=== PATIENT | female | born 1965 | race Caucasian/White ===

== ENCOUNTER → 2022-04-23 11:55 | Outpatient (CLI) | payer MEDICARE, SELFPAY ==
--- NOTE | 2022-04-23 | DI.CT.S_ITS ---
PROCEDURE: CT CHEST WO CON INDICATIONS: Shortness of breath; Other abnormalities of breath TECHNIQUE: Noncontrast 5 mm thick sections acquired from the pulmonary apices to the posterior costophrenic angles. 1 mm lung window, 5 mm thick coronal and sagittal and 7 mm axial MIP reformats were then acquired. For radiation dose reduction, the following was used: automated exposure control, adjustment of mA and/or kV according to patient size. COMPARISON: [facility], CT, THORAX WITH CONTRAST, 02/05/2010, 11:52. [facility], CR, CHEST 2 VIEW, 10/13/2013, 16:24. FINDINGS: Image quality: Excellent. Lungs and pleura: There is a 1.1 cm lobulated nodular density in the left lower lobe (series 3, image 195). Just lateral to the nodule, there is a 0.7 cm irregular nodule in the left lower lobe (series 3, image 97). A 0.4 cm nodule is seen in the left lower lobe along the major fissure (series 3, image 127). A 0.2 cm nodule is seen in the left upper lobe laterally (series 3 image 102). Other nodules are new since the last exam. Mild centrilobular emphysema. There is left hemidiaphragm elevation and left basilar atelectasis. No acute air space opacities. No pleural effusions or pneumothorax. Central and peripheral airways are patent and normal in caliber. Mediastinum: Heart size is normal. No pericardial effusion. No mediastinal adenopathy by size criteria. Thoracic aorta and central pulmonary arteries are normal in size. Esophagus is normal in caliber. Small hiatal hernia. Bones and chest wall: No suspicious bony lesions. Mild chronic anterior wedge deformity of T12. Degenerative changes noted in thoracic and upper lumbar spine. No vertebral body compression fractures. No axillary or supraclavicular adenopathy by size criteria. Thyroid gland is normal . Abdomen: There is a 2.2 cm right adrenal nodule demonstrating CT density -2.98 HU, most likely a lipid laden adrenal adenoma. Gallbladder is surgically absent. IMPRESSION: 1. There is a 1.1 cm lobulated subpleural nodule in the left lower lobe. A PET-CT is recommended for follow-up evaluation. Alternatively, a short-term follow-up CT may be obtained in 3 months. 2. A few smaller subcentimeter nodules are seen in the left lung. The nodules can be followed on follow-up imaging at the same time. 3. A 2 cm right adrenal adenoma. Fleischner Society criteria for SOLID lung nodule followup. Nodule size (mm)Low-risk patientHigh-risk patient?4No follow-up neededFollow-up at 12 mo; if no change, no further follow-up>4-7Axumrz-bp CT at 12 mo; if no change, no further follow-up needed.Initial follow-up CT at 6-12 mo, then 18-24 mo if no change. >6-8Initial follow-up CT at 6-12 mo, then 18-24 mo if no change. Initial follow-up CT at 3-6 mo, then 9-12 mo and 24 mo if no change. >8Follow-up CT at 3, 9, 24 mo. Or PET and/or biopsy.Same as for low-risk pts. Dictated by: Jose Jacques M.D. on 04/23/2022 at 12:50 Approved by: Jose Jacques M.D. on 04/23/2022 at 13:02
== END ==
PROVIDERS: Family Provider Otolaryngology; Referring Provider Family Medicine
DX: R06.02 Shortness of breath (principal); R06.89 Other abnormalities of breathing; R91.8 Other nonspecific abnormal finding of lung field; D35.01 Benign neoplasm of right adrenal gland
CPT/HCPCS: 71250

== ENCOUNTER → 2022-04-24 11:25 | Outpatient (CLI) | payer MEDICARE, SELFPAY ==
[2022-04-24 13:26] LABS: COVID19 -Nasal RAPID Negative (Negative)
== END ==
PROVIDERS: Family Provider Otolaryngology; PCP Family Medicine; Referring Provider Internal Medicine; Visit Provider Internal Medicine
DX: Z20.822 Contact with and (suspected) exposure to COVID-19 (principal)
CPT/HCPCS: 87635; C9803

== ENCOUNTER 2022-04-24 16:38 | Inpatient (IN) | payer OTHER, SELFPAY ==
[2022-04-24] VITALS (38 sets, daily range): BP systolic 85–182; BP diastolic 50–102; PULSE 75–96; RESP 7–27; TEMP 36.9; O2SAT 94–100; BMI 35.2
--- NOTE | 2022-04-24 17:03 | DI.CT.S_ITS ---
PROCEDURE: CT SOFT TISSUE NECK W CON INDICATIONS: stridor for several months. worsening, hx of cervical fusio TECHNIQUE: After the administration of intravenous contrast, 3.0 mm axial sections acquired from the sella to the aortic arch. Additional oblique axial 3.0 mm sections acquired through the pharynx. 3 mm thick coronal and sagittal reformats were generated. For radiation dose reduction, the following was used: automated exposure control. COMPARISON: None. FINDINGS: Image quality: Excellent. Lymph nodes: No enlarged lymph nodes seen throughout the neck. Vessels: Visualized vasculature appears patent. Neck spaces: The oropharynx, nasopharynx, and pharynx demonstrate no mucosal lesions. There is edema of the larynx with narrowing of the airway through the larynx measuring 1.1 cm in length. Extramucosal spaces appear unremarkable. Glands: The parotid and submandibular glands appear normal. Thyroid gland is normal. Miscellaneous: Visualized brain and orbits appear normal. Lung apices appear clear. Superficial soft tissues appear normal. Bones: Postoperative changes of ACDF spanning from C4 through C6. IMPRESSION: 1. Laryngeal edema with closure of the airway. 2. Postoperative changes of ACDF spanning from C4 through C6. Findings were discussed with Dr. Tobin Dictated by: Reza Carrero M.D. on 04/24/2022 at 19:04 Approved by: Reza Carrero M.D. on 04/24/2022 at 19:11
--- NOTE | 2022-04-24 17:05 | ED.SOB ---
HPI - SOB/Dyspnea General Chief Complaint: Shortness of Breath/Dyspnea Stated Complaint: sob Time Seen by Provider: 04/24/22 17:02 Source: patient Mode of arrival: Ambulatory Limitations: no limitations History of Present Illness HPI Narrative: This is a 56-year-old with history heroin use, anterior cervical fusion in 2016 and 2018. Patient states she is been having stridor or high-pitched wheezing with inhalation for the past several months. It has been slowly worsening. She has had a CT chest yesterday, she is. PFT testing today but was told to come to the ER by the respiratory therapist. Patient denies fevers or chills. No cough cold or congestion until about 3 weeks ago. She had some mild congestion and has had some persistent cough. She denies any chest pain or shortness of breath. She feels like it does feel tight or that the area has trouble moving air through her upper airway. She does not have any issues with swallowing except it is little bit painful and she is described sore throat. Patient has not had hemoptysis or productive sputum. No nausea or vomiting. No other GI or urinary symptoms. No swelling in extremities. She does use tobacco daily, denies alcohol, she uses heroin and sometimes smokes it. She use most recently this morning. Related Data Home Medications Medication Instructions Recorded Confirmed gabapentin 100 mg capsule 300 mg ##0 08/24/16 hydromorphone 4 mg tablet ##0 08/24/16 (Dilaudid) methadone 10 mg tablet 20 mg PO BID ##0 08/24/16 Previous Rx's Medication Instructions Recorded hydromorphone 4 mg tablet 4 mg PO QIDP PRN #10 tabs 08/24/16 (Dilaudid) cephalexin 500 mg capsule (Keflex) 500 mg PO QID #10 caps 08/27/16 hydrocodone 5 mg-acetaminophen 325 1 tab PO Q6HP PRN #6 tabs 08/27/16 mg tablet ([place]) hydrocodone 7.5 mg-acetaminophen 1 tab PO Q6HP PRN #14 tabs 10/06/16 325 mg tablet ([place]) sulfamethoxazole 800 1 tab PO BID #14 tabs 10/06/16 mg-trimethoprim 160 mg tablet Allergies Allergy/AdvReac Type Severity Reaction Status Date / Time No Known Drug Allergies Allergy Verified 04/24/22 16:51 Review of Systems Review of Systems ROS Unobtainable: All systems reviewed & are unremarkable except as noted in HPI and below Patient History Social History household members: spouse Smoking Status: Current every day smoker Smoking Status: Current every day smoker alcohol intake frequency: 0-2 drinks per day Substance Use Type: heroin Exam Narrative Exam Narrative: GEN: well nourished, well appearing female, alert and oriented x 3, patient appears to be in mild distress. HEENT: Atraumatic, pupils are equal round reactive to light, extraocular movements are intact, nares are clear, TMs are clear with no fluid, there is no conjunctival pallor. Throat is clear without any exudates, erythema, tonsillar enlargement or uvular deviation, HEART: Regular rate and rhythm without murmur, clicks, rubs. LUNGS:Lungs clear to auscultation, no wheezes, rales, crackles, chest moves symmetrically, no tachypnea accessory muscle use. Positive for stridor. Patient is slightly hoarse. ABD:bowel sounds normal, soft, non-tender, no guarding, rebound, rigidity, no masses noted, no hepatosplenomegaly :No CVA tenderness MSCL: Non-tender, no muscle atrophy, muscles strength 5/5 upper and lower extremities, full range of motion, normal gait NEURO:CN 2-12 intact, sensation normal Initial Vital Signs Initial Vital Signs: Vital Signs Temperature 98.4 F 04/24/22 16:43 Pulse Rate 96 H 04/24/22 16:43 Respiratory Rate 18 04/24/22 16:43 Blood Pressure 142/86 H 04/24/22 16:43 Pulse Oximetry 96 04/24/22 16:43 Oxygen Delivery Method 04/24/22 16:43 Course Orders Ordered: Chlorhexidine Gluconate (Chlorhexidine Gluconate 15 Ml Cup) 15 ml PO Q6HR [facility] Last Admin: 04/25/22 17:22 Dose: 15 ml Documented By: Admin: 04/25/22 11:42 Dose: 15 ml Documented By: Admin: 04/25/22 05:27 Dose: 15 ml Documented By: Admin: 04/25/22 00:15 Dose: 15 ml Documented By: KELTON Dexamethasone (Dexamethasone 4 Mg/Ml Vial) 4 mg IV Q6H [facility] Last Admin: 04/25/22 18:39 Dose: 4 mg Documented By: Admin: 04/25/22 13:06 Dose: 4 mg Documented By: Admin: 04/25/22 07:20 Dose: 4 mg Documented By: Admin: 04/25/22 01:13 Dose: 4 mg Documented By: KELTON Heparin Sodium (Porcine) (Heparin 5,000 Unit/Ml Vial) 5,000 unit SUBCUT BID AV Last Admin: 04/25/22 08:31 Dose: 5,000 unit Documented By: ZAIRE Propofol (Propofol) 1,000 mg in 100 mls @ 2.449 mls/hr IV TITRATE AV; Protocol Last Admin: 04/25/22 17:22 Dose: 50 mcg/kg/min, 24.494 mls/hr Documented By: Titration: 04/25/22 17:22 Dose: 50 mcg/kg/min, 24.494 mls/hr Documented By: Admin: 04/25/22 13:18 Dose: 50 mcg/kg/min, 24.494 mls/hr Documented By: Titration: 04/25/22 13:18 Dose: 50 mcg/kg/min, 24.494 mls/hr Documented By: Admin: 04/25/22 09:29 Dose: 50 mcg/kg/min, 24.494 mls/hr Documented By: Titration: 04/25/22 09:29 Dose: 50 mcg/kg/min, 24.494 mls/hr Documented By: Titration: 04/25/22 07:50 Dose: 50 mcg/kg/min, 24.494 mls/hr Documented By: Admin: 04/25/22 05:24 Dose: 50 mcg/kg/min, 24.494 mls/hr Documented By: Titration: 04/25/22 04:18 Dose: 50 mcg/kg/min, 24.494 mls/hr Documented By: Admin: 04/25/22 00:13 Dose: 50 mcg/kg/min, 24.494 mls/hr Documented By: Titration: 04/25/22 00:13 Dose: 50 mcg/kg/min, 24.494 mls/hr Documented By: Titration: 04/24/22 23:54 Dose: 50 mcg/kg/min, 24.494 mls/hr Documented By: Titration: 04/24/22 21:15 Dose: 35 mcg/kg/min, 17.146 mls/hr Documented By: Titration: 04/24/22 20:36 Dose: 30 mcg/kg/min, 14.696 mls/hr Documented By: Titration: 04/24/22 20:19 Dose: 50 mcg/kg/min, 24.494 mls/hr Documented By: Admin: 04/24/22 20:11 Dose: 5 mcg/kg/min, 2.449 mls/hr Documented By: AT Fentanyl 1,000 mcg/ Dextrose 250 mls @ 14.288 mls/hr IV TITRATE AV; Protocol Last Titration: 04/25/22 16:58 Dose: 2 mcg/kg/hr, 40.824 mls/hr Documented By: Admin: 04/25/22 12:06 Dose: 1 mcg/kg/hr, 20.412 mls/hr Documented By: Titration: 04/25/22 11:45 Dose: 1 mcg/kg/hr, 20.412 mls/hr Documented By: Titration: 04/25/22 00:24 Dose: 1 mcg/kg/hr, 20.412 mls/hr Documented By: Admin: 04/24/22 23:07 Dose: 0.7 mcg/kg/hr, 14.288 mls/hr Documented By: KELTON Ampicillin Sodium/Sulbactam (Sodium 3 gm/ Sodium Chloride) 100 mls @ 100 mls/hr IV Q6H AV Last Infusion: 04/25/22 18:07 Dose: 0 mls/hr Documented By: Admin: 04/25/22 15:37 Dose: 100 mls/hr Documented By: Infusion: 04/25/22 13:03 Dose: 0 mls/hr Documented By: Admin: 04/25/22 10:19 Dose: 100 mls/hr Documented By: Infusion: 04/25/22 07:16 Dose: 0 mls/hr Documented By: Admin: 04/25/22 05:28 Dose: 100 mls/hr Documented By: Infusion: 04/25/22 05:23 Dose: 0 mls/hr Documented By: Admin: 04/25/22 00:18 Dose: 100 mls/hr Documented By: KELTON Midazolam HCl (Midazolam 2 Mg/2 Ml Vial) 2 mg IV Q3HR PRN PRN Reason: Agitation Last Admin: 04/25/22 17:57 Dose: 2 mg Documented By: Admin: 04/25/22 14:44 Dose: 2 mg Documented By: Admin: 04/25/22 11:42 Dose: 2 mg Documented By: CW Pantoprazole Sodium (Pantoprazole 40 Mg Vial) 40 mg IV DAILY AV Last Admin: 04/25/22 08:32 Dose: 40 mg Documented By: CW Discontinued Medications Dexamethasone (Dexamethasone 10 Mg/Ml Vial) 10 mg IV NOW ONE Stop: 04/24/22 18:51 Last Admin: 04/24/22 19:04 Dose: 10 mg Documented By: AT Epinephrine (Racepinephrine 0.5 Ml Neb) 0.5 ml INH NOW ONE Stop: 04/24/22 17:04 Last Admin: 04/24/22 19:14 Dose: 0.5 ml Documented By: MK Fentanyl (Fentanyl 100 Mcg/2 Ml Inj) 100 mcg IV NOW ONE Stop: 04/24/22 20:08 Last Admin: 04/24/22 20:11 Dose: 100 mcg Documented By: AT Lactated Ringer's (Lactated Ringers) 1,000 mls @ 1,000 mls/hr IV BOLUS ONE Stop: 04/25/22 12:25 Last Infusion: 04/25/22 16:59 Dose: 0 mls/hr Documented By: Admin: 04/25/22 11:42 Dose: 1,000 mls/hr Documented By: CW Midazolam HCl (Midazolam 5 Mg/5 Ml Vial) 5 mg IV NOW ONE Stop: 04/24/22 20:15 Last Admin: 04/24/22 20:17 Dose: 5 mg Documented By: EB Midazolam HCl (Midazolam 5 Mg/5 Ml Vial) 5 mg IV NOW ONE Stop: 04/24/22 21:01 Last Admin: 04/24/22 21:02 Dose: 5 mg Documented By: EB Midazolam HCl (Midazolam 5 Mg/Ml Vial) 4 mg IV Q30MIN PRN PRN Reason: sedation. Consultations Consultation #1: Dr. Dawn, anesthesia. Discussed patient came in with stridor today has been persistent longstanding has not acutely changed but CT shows significant swelling of the airway and asked to assist with intubation today. Dr. Oliveira very kindly came to the department for intubation which preceded quite smoothly. Consultation #2: Dr. Rene, hospitalist accepts for admission discussed this has been sort of a chronic symptoms which is somewhat atypical, she does smoke heroin and use tobacco so could have some thermal injury causing her symptoms on GlideScope imaging it did sit somewhat consistent with this. He accepts for ICU admission. Vital Signs Vital signs: Vital Signs - 8 hr 04/24/22 16:43 04/24/22 17:56 04/24/22 19:14 Temperature 98.4 F Pulse Rate 96 H 84 Respiratory Rate 18 18 Blood Pressure 142/86 H 132/84 Pulse Oximetry 96 95 96 Oxygen Delivery Method Room Air Room Air Room Air 04/24/22 18:30 04/24/22 18:45 04/24/22 19:00 Temperature Pulse Rate 82 76 94 H Respiratory Rate Blood Pressure 131/76 139/73 Pulse Oximetry 94 94 95 Oxygen Delivery Method Room Air Room Air Room Air 04/24/22 19:14 04/24/22 19:30 04/24/22 19:30 Temperature Pulse Rate 83 91 H Respiratory Rate 12 25 H Blood Pressure 115/100 H Pulse Oximetry 100 94 Oxygen Delivery Method Room Air Room Air MDM - SOB/Dyspnea Lab Data Result diagrams: 04/25/22 06:00 04/25/22 05:00 Labs: Lab Results 04/24/22 04/24/22 04/24/22 Range/Units 17:30 17:30 17:30 WBC 6.5 (4.5-11.0) X10^3/uL RBC 4.75 (4.0-5.2) X10^6/uL Hgb 14.9 (12.0-16.0) g/dL Hct 43.5 (36-46) % MCV 91.5 (80-100) fL MCH 31.4 (26-34) PG MCHC 34.3 (30-36) % RDW 13.3 (11.6-14.8) % Plt Count 167 (150-400) X10^3/uL Neut % (Auto) 50.2 (50-75) % Lymph % (Auto) 34.5 (25-40) % [place] % (Auto) 9.0 (3-14) % Eos % (Auto) 5.5 H (2-4) % Baso % (Auto) 0.8 (0-2) % Neut # (Auto) 3300 (8572-7486) /uL Lymph # (Auto) 2300 (9873-7102) /uL [place] # (Auto) 600 (0-900) /uL Eos # (Auto) 400 (0-450) /uL Baso # (Auto) 100 (0-100) /uL Sodium 139 (137-145) mmol/L Potassium 4.1 (3.4-5.1) mmol/L Chloride 102 (98-107) mmol/L Carbon Dioxide 31 (22-32) mmol/L BUN 18 H (7-17) mg/dL Creatinine 0.69 (0.52-1.04) mg/dL Estimated GFR > 60 (>60) mL/min BUN/Creatinine Ratio 26.1 H (6-22) Glucose 87 (70-100) mg/dL Calcium 9.1 (8.4-10.2) mg/dL Total Bilirubin 0.8 (0.2-1.3) mg/dL AST 48 H (14-36) IU/L ALT 37 H (<35) IU/L Alkaline Phosphatase 77 (38-126) U/L Total Creatine Kinase 164 H (30-135) U/L CK-MB (CK-2) 5.58 H (<2.37) ng/mL CK-MB (CK-2) Rel Index 3.4 (1.5-5.0) % Troponin I < 0.012 (0.01-0.034) ng/mL Total Protein 7.2 (6.3-8.2) g/dL Albumin 4.4 (3.5-5.0) g/dL Globulin 2.8 (1.7-4.1) g/dL Albumin/Globulin Ratio 1.6 (1.0-2.8) SARS-CoV-2 (PCR) (Negative) 04/24/22 Range/Units 19:40 WBC (4.5-11.0) X10^3/uL RBC (4.0-5.2) X10^6/uL Hgb (12.0-16.0) g/dL Hct (36-46) % MCV (80-100) fL MCH (26-34) PG MCHC (30-36) % RDW (11.6-14.8) % Plt Count (150-400) X10^3/uL Neut % (Auto) (50-75) % Lymph % (Auto) (25-40) % [place] % (Auto) (3-14) % Eos % (Auto) (2-4) % Baso % (Auto) (0-2) % Neut # (Auto) (2801-6877) /uL Lymph # (Auto) (2633-0054) /uL [place] # (Auto) (0-900) /uL Eos # (Auto) (0-450) /uL Baso # (Auto) (0-100) /uL Sodium (137-145) mmol/L Potassium (3.4-5.1) mmol/L Chloride (98-107) mmol/L Carbon Dioxide (22-32) mmol/L BUN (7-17) mg/dL Creatinine (0.52-1.04) mg/dL Estimated GFR (>60) mL/min BUN/Creatinine Ratio (6-22) Glucose (70-100) mg/dL Calcium (8.4-10.2) mg/dL Total Bilirubin (0.2-1.3) mg/dL AST (14-36) IU/L ALT (<35) IU/L Alkaline Phosphatase (38-126) U/L Total Creatine Kinase (30-135) U/L CK-MB (CK-2) (<2.37) ng/mL CK-MB (CK-2) Rel Index (1.5-5.0) % Troponin I (0.01-0.034) ng/mL Total Protein (6.3-8.2) g/dL Albumin (3.5-5.0) g/dL Globulin (1.7-4.1) g/dL Albumin/Globulin Ratio (1.0-2.8) SARS-CoV-2 (PCR) Negative (Negative) Imaging Data CT soft tissue neck: Radiologist's Impression: Close Soft Tissue Neck CT (Signed) Reza Carrero - 04/24/22 Launch?[address] [address] [address] Scan Report Signed Patient: Olive Santana MR#: [id number] : 1965 Acct:[id number] Age/Sex: 56 / F Date of Service: 04/24/22 Loc: ED Accession Number: [id number] ?? Procedure: CT soft tissue neck w con Ordering Provider: Ronel Tobin D.O. PROCEDURE:? CT SOFT TISSUE NECK W CON ? INDICATIONS:? stridor for several months.? worsening, hx of cervical fusio ? TECHNIQUE:? After the administration of intravenous contrast, 3.0 mm axial sections acquired from the sella to the aortic arch.? Additional oblique axial 3.0 mm sections acquired through the pharynx.? 3 mm thick coronal and sagittal reformats were generated.? For radiation dose reduction, the following was used:? automated exposure control.? ? COMPARISON:? None. ? FINDINGS:? Image quality:? Excellent.? ? Lymph nodes:? No enlarged lymph nodes seen throughout the neck.? ? Vessels:? Visualized vasculature appears patent.? ? Neck spaces:? The oropharynx, nasopharynx, and pharynx demonstrate no mucosal lesions.? There is edema of the larynx with narrowing of the airway through the larynx measuring 1.1 cm in length.? Extramucosal spaces appear unremarkable.? ? Glands:? The parotid and submandibular glands appear normal.? Thyroid gland is normal.? ? Miscellaneous:? Visualized brain and orbits appear normal.? Lung apices appear clear.? Superficial soft tissues appear normal. ? Bones:? Postoperative changes of ACDF spanning from C4 through C6. ? IMPRESSION:? 1. Laryngeal edema with closure of the airway. 2. Postoperative changes of ACDF spanning from C4 through C6.? ? Findings were discussed with Dr. Tobin ? ? Dictated by: Reza Carrero M.D. on 04/24/2022 at 19:04 ? ? Approved by: Reza Carrero M.D. on 04/24/2022 at 19:11?? ECG Data Attestation: I personally reviewed and interpreted this ECG as follows: Interpretation: Sinus rhythm rate 86 CT 150 QRS 80 QTC 445. No acute ST changes noted. MDM Narrative Medical decision making narrative: This is a 56-year-old female with longstanding stridor who presents today after going to respiratory therapy to have PFT and was told to come for evaluation. She has inhalational stridor. She is sitting on the edge of the bed she is not tachycardic or having other major vital sign changes. She is slightly hoarse but states that has been longstanding with a raspy voice. Patient given dexamethasone, racemic epinephrine. After discussion she is open to intubation she is currently stable but stridorous but her airway is very small on her imaging today and feel appropriate to intubate for airway protection. Anesthesia was contacted and assisted with intubation. Patient had a 6.5 ETT tube chosen secondary to swelling. Patient tolerated procedure well this was performed by Dr. Dawn. Patient was intubated by anesthesia procedure went very smoothly. Patient did have some difficulty with sedation afterwards and has a history opiate abuse likely making it little bit more difficult to maintain sedation. Case was discussed with hospitalist who accepts for admission to ICU. Critical Care Time Critical Care Time Critical Care Time: Yes Total Critical Care Time: 41 Attestation: The high probability of a clinically significant, sudden or life threatening deterioration of the [pulm] system(s) required my full and direct attention, intervention and personal management. The aggregate critical care time was [] minutes. This time is in addition to time spent performing reported procedures but includes the following: [x] Data Review and interpretation [x] Patient assessment and monitoring of vital signs [x] Documentation [x] Medication orders and management Discharge Plan Departure Patient Disposition: Home Clinical Impression: Edema of larynx, Stridor
[2022-04-24 17:40] LABS: Add Manual Diff / Slide Review NO; Basophils Absolute Auto 100 /uL (0-100); Basophils Percent Auto 0.8 % (0-2); Eosinophils Absolute Auto 400 /uL (0-450); Eosinophils Percent Auto 5.5 % (2-4); Hematocrit 43.5 % (36-46); Hemoglobin 14.9 g/dL (12.0-16.0); Lymphocytes Absolute Auto 2300 /uL (1100-4500); Lymphocytes Percent Auto 34.5 % (25-40); Mean Corpuscular HGB Conc 34.3 % (30-36); Mean Corpuscular Hemoglobin 31.4 PG (26-34); Mean Corpuscular Volume 91.5 fL (80-100); Monocytes Absolute Auto 600 /uL (0-900); Neutrophils Absolute Auto 3300 /uL (1500-7000); Neutrophils Percent Auto 50.2 % (50-75); Platelet Count 167 X10^3/uL (150-400); Red Blood Cell Count 4.75 X10^6/uL (4.0-5.2); Red Cell Distribution Width 13.3 % (11.6-14.8); White Blood Cell Count 6.5 X10^3/uL (4.5-11.0)
[2022-04-24 17:54] LABS: Creatine Kinase 164 U/L (30-135)
[2022-04-24 17:56] LABS: Alanine Aminotransferase 37 IU/L (<35); Albumin 4.4 g/dL (3.5-5.0); Albumin Globulin Ratio 1.6 (1.0-2.8); Alkaline Phosphatase 77 U/L (38-126); Aspartate Aminotransferase 48 IU/L (14-36); BUN Creatinine Ratio 26.1 (6-22); Bilirubin Total 0.8 mg/dL (0.2-1.3); Blood Urea Nitrogen 18 mg/dL (7-17); Calcium 9.1 mg/dL (8.4-10.2); Carbon Dioxide 31 mmol/L (22-32); Chloride 102 mmol/L (98-107); Estimated Glomerular Filt Rate > 60 mL/min (>60); Globulin 2.8 g/dL (1.7-4.1); Glucose 87 mg/dL (70-100); HEMOLYSIS 27 (0-50); Potassium 4.1 mmol/L (3.4-5.1); Sodium 139 mmol/L (137-145); Total Protein 7.2 g/dL (6.3-8.2)
[2022-04-24 18:05] LABS: Troponin I < 0.012 ng/mL (0.01-0.034)
[2022-04-24 18:10] LABS: CKMB % Relative Index 3.4 % (1.5-5.0); Creatine Kinase MB 5.58 ng/mL (<2.37)
[2022-04-24] MEDS: DEXAMETHASONE 10 MG/ML VIAL IV (19:04)
[2022-04-24] MEDS: RACEPINEPHRINE 0.5 ML NEB INH (19:14)
--- NOTE | 2022-04-24 19:19 | PC.NURSE ---
Pt breathing labored, difficulty pulling breath in, pt reports feeling SOB. RT called, Dr. Tobin notified and at bedside to assess pt. SPO2 noted at 100%. Pt transported from [facility] to [facility]. Pt updated by Dr. Tobin on current plan of care.
--- NOTE | 2022-04-24 19:53 | PC.NURSE ---
Anesthesia to medicate pt for RSI. Meds included Versed, Ketamine, Propofol and Fentanyl.
--- NOTE | 2022-04-24 19:54 | DI.RAD.S_ITS ---
PROCEDURE: XR CHEST 1V INDICATIONS: post intubation/NG TUBE TECHNIQUE: One view of the chest was acquired. COMPARISON: None. FINDINGS: Endotracheal tube terminates within the thoracic trachea approximately 1.6 cm above the gemini. Enteric tube terminates in appropriate position with distal tip and sentinel hole in the stomach. Lungs symmetrically and normally inflated. No pneumothorax. No visible pleural effusion. IMPRESSION: Appropriate position of endotracheal and enteric tubes. Dictated by: Jono Santana M.D. on 04/24/2022 at 20:12 Approved by: Jono Santana M.D. on 04/24/2022 at 20:13
--- NOTE | 2022-04-24 19:54 | PC.NURSE ---
Pt intubated at this time with 6.5 ETT secured 24cm at lips. Pt still has dentures in, Anesthesia purposely left these in place during procedure.
[2022-04-24 20:09] LABS: COVID19 -Nasal RAPID Negative (Negative)
[2022-04-24] MEDS: fentaNYL 100 MCG/2 ML INJ IV (20:11)
[2022-04-24] MEDS: propofoL 1,000 MG/100 ML VIAL 2.449 MG IV (20:11)
[2022-04-24] MEDS: MIDAZOLAM 5 MG/5 ML VIAL IV ×2 (20:17→21:02)
--- NOTE | 2022-04-24 20:18 | PC.NURSE ---
Override Versed medication charted as given with Michelle RN prsent to verify since MAR not recognizing barcode. 5mg IV Versed given at this time for pt continued agitation.
--- NOTE | 2022-04-24 20:20 | PC.NURSE ---
Per ER provider, propofol to intiate at 50mcg/kg/min for pt agitation.
--- NOTE | 2022-04-24 20:27 | PM.PROC.1 ---
Procedures Date/Time Date of procedure: 04/24/22 Time of procedure: 19:40 Intubation Time out performed: Yes Sedative: other (ketamine 40mg, midazolam 2mg, propofol 50mg, fentanyl 50mcg) Paralytic: succinylcholine (120mg) Laryngoscope: fiber optic video scope (S3) ET tube size: 6.5 Tube secured depth (cm): 22 Tube secured location: teeth Tube placement confirmation: visualized tube passing through cords, equal breath sounds bilaterally, no breath sounds over epigastrium and confirmation by capnometry Patient tolerated procedure: well Intubation complications: none Additional comments: Patient was first pre-oxygenated on 100% FiO2. She was incrementally given midazolam, fentanyl and ketamine to acheive a state of hypnosis while maintaining spontaneous ventilation. Induction was with just 50mg propofol and 120mg sux to achieve rapid intubating conditions. Visualization of larynx with Glidescope revealed black eschar just below the vocal folds with redundant but pliable soft tissue swelling, consistent with the patient's reports of inhaling a heroin ember. Size 6.5 lubricated ETT was able to be passed through this blackened, swollen tissue with minimal force.
--- NOTE | 2022-04-24 20:34 | PC.NURSE ---
orogastric tube placed soon after ETT placed, status verified with xray and pt connected to low intermittent suction.
--- NOTE | 2022-04-24 22:25 | PM.CN.EICU ---
History of Present Illness Consult details Date Patient Seen: 04/24/22 Chief complaint: sob Reason for consult: Acute respiratory failure Requesting provider: Liang Rene Patient Location: ICU Provider location (State): [place] Narrative: Patient is a 56 year old female with history of anterior cervical fusion and heroin abuse who had completed PFTs earlier today and was told to go to the ER for further evaluation. On presentation patient reports having stridor and high pitch wheezing. CT neck showed laryngeal edema w/ closure of the airway. Patient is not on any Jayson-I. She was emergently intubated in the ER. Sedated with propofol infusion and versed IV pushes. Admitted to ICU for further management. In ICU, post intubation ABG -> 7.36/53/126 on 430/16/5/40%. [facility] Social History Smoking Status: Current every day smoker Current Medications Current Medications Medications: Home Medications gabapentin 100 mg capsule 300 mg ##0 08/24/16 [History] hydromorphone 4 mg tablet (Dilaudid) ##0 08/24/16 [History] hydromorphone 4 mg tablet (Dilaudid) 4 mg PO QIDP PRN #10 tabs 08/24/16 [Rx] methadone 10 mg tablet 20 mg PO BID ##0 08/24/16 [History] cephalexin 500 mg capsule (Keflex) 500 mg PO QID #10 caps 08/27/16 [Rx] hydrocodone 5 mg-acetaminophen 325 mg tablet ([place]) 1 tab PO Q6HP PRN #6 tabs 08/27/16 [Rx] hydrocodone 7.5 mg-acetaminophen 325 mg tablet ([place]) 1 tab PO Q6HP PRN #14 tabs 10/06/16 [Rx] sulfamethoxazole 800 mg-trimethoprim 160 mg tablet 1 tab PO BID #14 tabs 10/06/16 [Rx] Visit Medications (administered) Generic Name Dose Route Start Last Admin Trade Name Freq PRN Reason Stop Dose Admin Propofol 1,000 mg in 100 mls @ 2.449 mls/hr 04/24/22 20:00 04/24/22 21:15 Propofol IV 35 mcg/kg/min TITRATE AV 17.146 mls/hr Titration Protocol 5 MCG/KG/MIN Review of Systems Review of Systems Narrative: Unable to obtain due to acuity condition Exam Vital Signs (past 8 hours): - 04/24/22 16:43 04/24/22 17:56 04/24/22 19:14 Temperature 98.4 F Pulse Rate 96 H 84 Respiratory Rate 18 18 Blood Pressure 142/86 H 132/84 Pulse Oximetry 96 95 96 Oxygen Delivery Method Room Air Room Air Room Air 04/24/22 18:30 04/24/22 18:45 04/24/22 19:00 Temperature Pulse Rate 82 76 94 H Respiratory Rate Blood Pressure 131/76 139/73 Pulse Oximetry 94 94 95 Oxygen Delivery Method Room Air Room Air Room Air 04/24/22 19:14 04/24/22 19:30 04/24/22 19:30 Temperature Pulse Rate 83 91 H Respiratory Rate 12 25 H Blood Pressure 115/100 H Pulse Oximetry 100 94 Oxygen Delivery Method Room Air Room Air 04/24/22 19:33 04/24/22 19:33 04/24/22 19:46 Temperature Pulse Rate 88 92 H Respiratory Rate 17 26 H Blood Pressure 117/85 Pulse Oximetry 98 97 Oxygen Delivery Method 04/24/22 19:46 04/24/22 19:50 04/24/22 19:50 Temperature Pulse Rate 85 Respiratory Rate 17 Blood Pressure 121/102 H 150/77 H Pulse Oximetry 100 Oxygen Delivery Method 04/24/22 19:54 04/24/22 19:54 04/24/22 19:56 Temperature Pulse Rate 94 H Respiratory Rate 25 H Blood Pressure 182/89 H 148/69 H Pulse Oximetry 100 Oxygen Delivery Method 04/24/22 19:56 04/24/22 20:00 04/24/22 20:09 Temperature Pulse Rate 87 93 H 93 H Respiratory Rate 17 23 26 H Blood Pressure Pulse Oximetry 100 95 97 Oxygen Delivery Method 04/24/22 20:09 04/24/22 20:11 04/24/22 20:11 Temperature Pulse Rate 89 Respiratory Rate 17 Blood Pressure 170/91 H 151/86 H Pulse Oximetry 96 Oxygen Delivery Method 04/24/22 20:15 04/24/22 20:15 04/24/22 20:19 Temperature Pulse Rate 91 H Respiratory Rate 27 H Blood Pressure 154/83 H 115/64 Pulse Oximetry 97 Oxygen Delivery Method 04/24/22 20:19 04/24/22 20:20 04/24/22 20:20 Temperature Pulse Rate 90 88 Respiratory Rate 17 18 Blood Pressure 110/63 Pulse Oximetry 98 98 Oxygen Delivery Method 04/24/22 20:25 04/24/22 20:25 04/24/22 20:27 Temperature Pulse Rate 86 Respiratory Rate 16 Blood Pressure 96/54 L 90/51 L Pulse Oximetry 98 Oxygen Delivery Method 04/24/22 20:27 04/24/22 20:30 04/24/22 20:30 Temperature Pulse Rate 85 83 Respiratory Rate 16 16 Blood Pressure 94/51 L Pulse Oximetry 98 98 Oxygen Delivery Method 04/24/22 20:39 04/24/22 20:39 04/24/22 20:45 Temperature Pulse Rate 80 80 Respiratory Rate 16 16 Blood Pressure 102/59 L Pulse Oximetry 97 98 Oxygen Delivery Method 04/24/22 20:45 04/24/22 20:55 04/24/22 20:55 Temperature Pulse Rate 78 Respiratory Rate 16 Blood Pressure 102/61 106/62 Pulse Oximetry 98 Oxygen Delivery Method 04/24/22 21:00 04/24/22 21:01 04/24/22 21:01 Temperature Pulse Rate 85 85 Respiratory Rate 19 16 Blood Pressure 129/64 Pulse Oximetry 96 96 Oxygen Delivery Method 04/24/22 21:04 04/24/22 21:05 Temperature Pulse Rate 79 Respiratory Rate 16 Blood Pressure 107/56 L Pulse Oximetry 97 Oxygen Delivery Method Oxygen Delivery Method Room Air Narrative Exam Narrative: Intubated and sedated Objective Labs Result Diagrams: 04/24/22 17:30 04/24/22 17:30 Labs: Laboratory Results - last 24 hr 04/24/22 04/24/22 04/24/22 17:30 17:30 17:30 WBC 6.5 RBC 4.75 Hgb 14.9 Hct 43.5 MCV 91.5 MCH 31.4 MCHC 34.3 RDW 13.3 Plt Count 167 Neut % (Auto) 50.2 Lymph % (Auto) 34.5 [place] % (Auto) 9.0 Eos % (Auto) 5.5 H Baso % (Auto) 0.8 Neut # (Auto) 3300 Lymph # (Auto) 2300 [place] # (Auto) 600 Eos # (Auto) 400 Baso # (Auto) 100 Sodium 139 Potassium 4.1 Chloride 102 Carbon Dioxide 31 BUN 18 H Creatinine 0.69 Estimated GFR > 60 BUN/Creatinine Ratio 26.1 H Glucose 87 Calcium 9.1 Total Bilirubin 0.8 AST 48 H ALT 37 H Alkaline Phosphatase 77 Total Creatine Kinase 164 H CK-MB (CK-2) 5.58 H CK-MB (CK-2) Rel Index 3.4 Troponin I < 0.012 Total Protein 7.2 Albumin 4.4 Globulin 2.8 Albumin/Globulin Ratio 1.6 SARS-CoV-2 (PCR) 04/24/22 19:40 WBC RBC Hgb Hct MCV MCH MCHC RDW Plt Count Neut % (Auto) Lymph % (Auto) [place] % (Auto) Eos % (Auto) Baso % (Auto) Neut # (Auto) Lymph # (Auto) [place] # (Auto) Eos # (Auto) Baso # (Auto) Sodium Potassium Chloride Carbon Dioxide BUN Creatinine Estimated GFR BUN/Creatinine Ratio Glucose Calcium Total Bilirubin AST ALT Alkaline Phosphatase Total Creatine Kinase CK-MB (CK-2) CK-MB (CK-2) Rel Index Troponin I Total Protein Albumin Globulin Albumin/Globulin Ratio SARS-CoV-2 (PCR) Negative Assessment & Plan Assessment and plan (1) Acute respiratory failure: Status: Acute Assessment & Plan narrative: NEURO: # Acute encephalopathy -- Secondary to sedatives -- On propofol infusion -- Added fentanyl for pain control -- RASS goal -1 to 0 -- Seek early mobility -- Daily CAM ICU RESP: # Acute respiratory failure -- Secondary to laryngeal edema -- Meeting goals of oxygenation and ventilation -- HOB elevation -- Aspiration precaution -- Daily SAT and SBT -- Daily cuff leak assessment # Laryngeal edema -- Unclear etiology -- Check strep PCR -- Start unasyn -- Check resp cx -- Daily cuff leak assessment -- May warrant ENT evaluation CVS: # Hypotension -- Secondary to sedatives and positive pressure -- Anesthesia consulted for CVC -- MAP goal > 65 ENDO: -- Goal BS < 180 D/w RN and RT at bedside. Time Spent With Patient Critical Care time: I spent a total of 39 minutes of critical care time on this patient's care today; this time is exclusive of procedural time.
[2022-04-24 22:43] LABS: UR Morphine/Opiate cutoff 300 Positive (Negative); Ur Creatinine 50 (Normal); Ur Specific Gravity 1.025 (Normal); Urine Amphetamines Positive (Negative); Urine Barbiturates Negative (Negative); Urine Benzodiazepines Negative (Negative); Urine Cocaine Negative (Negative); Urine MDMA Negative (Negative); Urine Methadone Negative (Negative); Urine Methamphetamines Positive (Negative); Urine Oxycodone Negative (Negative); Urine Phencyclidine Negative (Negative); Urine Tetrahydrocannabinol Negative (Negative); Urine Tricyclic Antidepressant Negative (Negative); Urine pH 5 (Normal)
--- NOTE | 2022-04-24 22:51 | DI.RAD.S_ITS ---
PROCEDURE: XR CHEST 1V INDICATIONS: Status post central line placement TECHNIQUE: One view of the chest was acquired. COMPARISON: [facility], CR, XR CHEST 1V, 04/24/2022, 19:52. FINDINGS: Surgical changes and devices: Right IJ central line terminates in the inferior aspect of the SVC. Endotracheal and enteric tubes are in appropriate position. Partially visualized spinal stimulator leads. Lungs and pleura: Lungs are clear. No pleural effusions or pneumothorax. Mediastinum: Mediastinal contours appear normal. Heart size is normal. Bones and chest wall: No suspicious bony lesions. Overlying soft tissues appear unremarkable. IMPRESSION: Appropriate right IJ central line placement Dictated by: Jono Santana M.D. on 04/25/2022 at 0:02 Approved by: Jono Santana M.D. on 04/25/2022 at 0:03
--- NOTE | 2022-04-24 23:00 | PM.PROC.1 ---
Procedures Date/Time Date of procedure: 04/24/22 Time of procedure: 22:40 Central Line Placement Time out performed: Yes Patient placed on monitor/pulse ox: Yes MD prep: mask, gown and gloves Central line prep: Chlorhexidine scrub and sterile drapes applied Ultrasound used for placement: Yes Central line lumen inserted: triple Post procedure: sutured in place, good blood return, all ports aspirated, flushed, capped and sterile dressing applied Post procedure x-ray: other (Xray ordered) Patient tolerated procedure: well and no complications Complications: none
[2022-04-24] MEDS: fentaNYL 1,000 MCG in DEXTROSE 5% IN WATER 230 ML 14.288 MCG IV (23:07)
--- NOTE | 2022-04-24 23:16 | P.HP_ITS ---
History of Present Illness History of Present Illness Date Patient Seen: 04/24/22 Time Patient Seen: 22:00 Chief complaint: sob Narrative: Ms. Santana is a 56W with H heroin abuse, tobacco abuse who presents to the hospital with shortness of breath. Patient is intubated during exam, and history is obtained through discussion with other physicians. She has apparently been having stridor and wheezing for over a month. She has not had cough, fevers/chills. No chest pain or shortness of breath. She did have some mild discomfort with swallowing. She had a CT chest yesterday which showed multiple pulmonary nodules. She was sent in to the hospital today by RT who saw her when she was planning to get PFTs. In the ED workup was done, vitals notable for tachycardia. Per ED she was notably struggling to breath and stridorous. Labs notable for WBC 6.5, hgb 14.9, plts 167. Creatinine 0.69. CT neck showed laryngeal edema with closure of airway. She was intubated in the ED. She was admitted for further treatment. Family history: unable to obtain as patient intubated and sedated when examined Social history: per report heroin and tobacco use Patient History Family & Social History Safety & Behavioral: Feels Safe in Current Yes Environment Tobacco & Substance use: Smoking Status Current every day smoker alcohol intake frequency 0-2 drinks per day Substance Use Type heroin Meds Home Medications and Allergies Home Medications Medication Instructions Recorded Confirmed Type gabapentin 100 mg capsule 300 mg ##0 08/24/16 History hydromorphone 4 mg tablet ##0 08/24/16 History (Dilaudid) hydromorphone 4 mg tablet 4 mg PO QIDP PRN #10 tabs 08/24/16 Rx (Dilaudid) methadone 10 mg tablet 20 mg PO BID ##0 08/24/16 History cephalexin 500 mg capsule (Keflex) 500 mg PO QID #10 caps 08/27/16 Rx hydrocodone 5 mg-acetaminophen 325 1 tab PO Q6HP PRN #6 tabs 08/27/16 Rx mg tablet ([place]) hydrocodone 7.5 mg-acetaminophen 1 tab PO Q6HP PRN #14 tabs 10/06/16 Rx 325 mg tablet ([place]) sulfamethoxazole 800 1 tab PO BID #14 tabs 10/06/16 Rx mg-trimethoprim 160 mg tablet Allergies Allergy/AdvReac Type Severity Reaction Status Date / Time No Known Drug Allergies Allergy Verified 04/24/22 16:51 Review of Systems Review of Systems Narrative: Unable to perform, patient intubated and sedated Exam Vital Signs (past 8 hours): - 04/24/22 16:43 04/24/22 17:56 04/24/22 19:14 Temperature 98.4 F Pulse Rate 96 H 84 Respiratory Rate 18 18 Blood Pressure 142/86 H 132/84 Pulse Oximetry 96 95 96 Oxygen Delivery Method Room Air Room Air Room Air 04/24/22 18:30 04/24/22 18:45 04/24/22 19:00 Temperature Pulse Rate 82 76 94 H Respiratory Rate Blood Pressure 131/76 139/73 Pulse Oximetry 94 94 95 Oxygen Delivery Method Room Air Room Air Room Air 04/24/22 19:14 04/24/22 19:30 04/24/22 19:30 Temperature Pulse Rate 83 91 H Respiratory Rate 12 25 H Blood Pressure 115/100 H Pulse Oximetry 100 94 Oxygen Delivery Method Room Air Room Air 04/24/22 19:33 04/24/22 19:33 04/24/22 19:46 Temperature Pulse Rate 88 92 H Respiratory Rate 17 26 H Blood Pressure 117/85 Pulse Oximetry 98 97 Oxygen Delivery Method 04/24/22 19:46 04/24/22 19:50 04/24/22 19:50 Temperature Pulse Rate 85 Respiratory Rate 17 Blood Pressure 121/102 H 150/77 H Pulse Oximetry 100 Oxygen Delivery Method 04/24/22 19:54 04/24/22 19:54 04/24/22 19:56 Temperature Pulse Rate 94 H Respiratory Rate 25 H Blood Pressure 182/89 H 148/69 H Pulse Oximetry 100 Oxygen Delivery Method 04/24/22 19:56 04/24/22 20:00 04/24/22 20:09 Temperature Pulse Rate 87 93 H 93 H Respiratory Rate 17 23 26 H Blood Pressure Pulse Oximetry 100 95 97 Oxygen Delivery Method 04/24/22 20:09 04/24/22 20:11 04/24/22 20:11 Temperature Pulse Rate 89 Respiratory Rate 17 Blood Pressure 170/91 H 151/86 H Pulse Oximetry 96 Oxygen Delivery Method 04/24/22 20:15 04/24/22 20:15 04/24/22 20:19 Temperature Pulse Rate 91 H Respiratory Rate 27 H Blood Pressure 154/83 H 115/64 Pulse Oximetry 97 Oxygen Delivery Method 04/24/22 20:19 04/24/22 20:20 04/24/22 20:20 Temperature Pulse Rate 90 88 Respiratory Rate 17 18 Blood Pressure 110/63 Pulse Oximetry 98 98 Oxygen Delivery Method 04/24/22 20:25 04/24/22 20:25 04/24/22 20:27 Temperature Pulse Rate 86 Respiratory Rate 16 Blood Pressure 96/54 L 90/51 L Pulse Oximetry 98 Oxygen Delivery Method 04/24/22 20:27 04/24/22 20:30 04/24/22 20:30 Temperature Pulse Rate 85 83 Respiratory Rate 16 16 Blood Pressure 94/51 L Pulse Oximetry 98 98 Oxygen Delivery Method 04/24/22 20:39 04/24/22 20:39 04/24/22 20:45 Temperature Pulse Rate 80 80 Respiratory Rate 16 16 Blood Pressure 102/59 L Pulse Oximetry 97 98 Oxygen Delivery Method 04/24/22 20:45 04/24/22 20:55 04/24/22 20:55 Temperature Pulse Rate 78 Respiratory Rate 16 Blood Pressure 102/61 106/62 Pulse Oximetry 98 Oxygen Delivery Method 04/24/22 21:00 04/24/22 21:01 04/24/22 21:01 Temperature Pulse Rate 85 85 Respiratory Rate 19 16 Blood Pressure 129/64 Pulse Oximetry 96 96 Oxygen Delivery Method 04/24/22 21:04 04/24/22 21:05 04/24/22 22:22 Temperature Pulse Rate 79 75 Respiratory Rate 16 16 Blood Pressure 107/56 L Pulse Oximetry 97 100 Oxygen Delivery Method 04/24/22 22:30 04/24/22 22:30 04/24/22 22:58 Temperature Pulse Rate 78 Respiratory Rate 16 Blood Pressure 85/50 L 108/68 Pulse Oximetry 100 Oxygen Delivery Method 04/24/22 22:58 04/24/22 23:00 04/24/22 23:00 Temperature Pulse Rate 82 82 Respiratory Rate 16 7 L Blood Pressure 112/71 Pulse Oximetry 100 100 Oxygen Delivery Method Oxygen Delivery Method Room Air Narrative Exam Narrative: GEN: intubated, sedated HEENT: moist mucous membranes, PERRL NECK: trachea midline, no JVD, tender to palpation anterior neck, no mass felt PULM: clear bilaterally, no wheezes, rhonchi, rales CV: regular rate and rhythm, no murmurs ABD: soft, nontender, nondistended, no organomegaly, normal bowel sounds EXT: warm and well perfused, with no edema NEURO: sedated Objective Labs Result Diagrams: 04/24/22 17:30 04/24/22 17:30 Labs: Laboratory Results - last 24 hr 04/24/22 04/24/22 04/24/22 17:30 17:30 17:30 WBC 6.5 RBC 4.75 Hgb 14.9 Hct 43.5 MCV 91.5 MCH 31.4 MCHC 34.3 RDW 13.3 Plt Count 167 Neut % (Auto) 50.2 Lymph % (Auto) 34.5 [place] % (Auto) 9.0 Eos % (Auto) 5.5 H Baso % (Auto) 0.8 Neut # (Auto) 3300 Lymph # (Auto) 2300 [place] # (Auto) 600 Eos # (Auto) 400 Baso # (Auto) 100 Sodium 139 Potassium 4.1 Chloride 102 Carbon Dioxide 31 BUN 18 H Creatinine 0.69 Estimated GFR > 60 BUN/Creatinine Ratio 26.1 H Glucose 87 Calcium 9.1 Total Bilirubin 0.8 AST 48 H ALT 37 H Alkaline Phosphatase 77 Total Creatine Kinase 164 H CK-MB (CK-2) 5.58 H CK-MB (CK-2) Rel Index 3.4 Troponin I < 0.012 Total Protein 7.2 Albumin 4.4 Globulin 2.8 Albumin/Globulin Ratio 1.6 U Opiates 300ng/mL cut Ur Oxycodone Screen Urine Methadone Screen Ur Barbiturates Screen U Tricyclic Antidepress Ur Phencyclidine Scrn Ur Amphetamines Screen U Methamphetamines Scrn Ur MDMA Scrn (Ecstasy) U Benzodiazepines Scrn Urine Cocaine Screen U Marijuana (THC) Screen SARS-CoV-2 (PCR) 04/24/22 04/24/22 19:40 22:30 WBC RBC Hgb Hct MCV MCH MCHC RDW Plt Count Neut % (Auto) Lymph % (Auto) [place] % (Auto) Eos % (Auto) Baso % (Auto) Neut # (Auto) Lymph # (Auto) [place] # (Auto) Eos # (Auto) Baso # (Auto) Sodium Potassium Chloride Carbon Dioxide BUN Creatinine Estimated GFR BUN/Creatinine Ratio Glucose Calcium Total Bilirubin AST ALT Alkaline Phosphatase Total Creatine Kinase CK-MB (CK-2) CK-MB (CK-2) Rel Index Troponin I Total Protein Albumin Globulin Albumin/Globulin Ratio U Opiates 300ng/mL cut Positive H Ur Oxycodone Screen Negative Urine Methadone Screen Negative Ur Barbiturates Screen Negative U Tricyclic Antidepress Negative Ur Phencyclidine Scrn Negative Ur Amphetamines Screen Positive H U Methamphetamines Scrn Positive H Ur MDMA Scrn (Ecstasy) Negative U Benzodiazepines Scrn Negative Urine Cocaine Screen Negative U Marijuana (THC) Screen Negative SARS-CoV-2 (PCR) Negative Assessment & Plan Assessment & Plan narrative: Ms. Santana is a 56W with [facility] active smoker, heroin abuse who presents with acute on chronic stridor found to have laryngeal edema. 1. Acute hypoxemic respiratory failure from laryngeal edema -secondary to laryngeal edema -patient intubated due to significant edema -treat laryngeal edema as below -propofol and fentanyl for sedation, 2. Laryngeal edema -etiology not clear -strep screen to eval for strep throat -ordered unasyn -ordered dexamethasone -injury may be secondary to smoking, or possible reflux -consider ENT eval when extubated to eval for mass 3. Hypotenstion -secondary to medication effect, on arrival BP was normal -MAP goal >65 4. Active opiate and tobacco abuse -may need significant sedation to prevent self-extubation -social work consult when extubated 5. Lung nodules -will need further follow up, likely as outpatient, given smoking history to eval for malignancy CODE: Full Proxy: Keith Santana, I have utilized all available resources to reconcile the patient's home medications. Time Spent With Patient Critical Care time: I spent a total of [] minutes of critical care time on this patient's care today; this time is exclusive of procedural time. Quality MIPS - Admit I confirm the patient?s Advance Care Plan is present, Code status is documented, Surrogate decision maker is in patient?s record [If Yes, STOP here]: Yes
[2022-04-25] VITALS (60 sets, daily range): BP systolic 100–139; BP diastolic 63–89; PULSE 72–96; RESP 10–37; TEMP 36.3–37.4; O2SAT 84–100; BMI 33.1
[2022-04-25] MEDS: propofoL 1,000 MG/100 ML VIAL 24.494 MG IV ×6 (00:13→21:40)
[2022-04-25] MEDS: CHLORHEXIDINE GLUCONATE 15 ML CUP PO ×5 (00:15→23:48)
[2022-04-25] MEDS: AMPICILLIN/SULBACTAM 3 GM 3 GM in SODIUM CHLORIDE 0.9% 100 ML IV ×5 (00:18→22:13)
--- NOTE | 2022-04-25 01:03 | PC.NURSE ---
Addendum entered by Tamar Cooley R.N. 04/25/22 06:23: 0600- Patient wakes with stimulation. She is able to nod appropriately to questions. Patient is cooperative but reaches for ETT if she has a chance. Reason for ETT explained and patient nods she understands. Patient is a RASS of -2 to -3. AM blood sent waiting on results. will be in to see patient today. Patient is stable. Original Note: 0100- Patient arrived to room 226 at 2200. Patient vented and sedated. Initially patient only had peripheral IVs. Dr. Dawn came to the room and inserted a triple lumen catheter into the Right IJ. Patient tolerated well. Patient becomes very agitated with any stimulation. Lungs are clear to auscultation. Patient is afebrile. Propofol and Fentanyl for sedation. Patient has clear thin secretions specimen sent per order. Urine UDS sent per order. Son Ananda stopped into see patient briefly. Keith patient is her next of kin. Will monitor closely.
[2022-04-25] MEDS: DEXAMETHASONE 4 MG/ML VIAL IV ×4 (01:13→18:39)
[2022-04-25 02:19] LABS: PCO2 ABG 53.4 mmHg (35-45); pH ABG 7.36 (7.35-7.45)
[2022-04-25 02:20] LABS: Fractionated Inspired Oxygen 60; HCO3 ABG 30 mmol/L (22-26); Oxygen Saturation ABG 99 % (95-100); PO2 ABG 126 mmHg (80-100); TCO2 ABG 31 mmol/L (21-31)
[2022-04-25 05:41] LABS: Alanine Aminotransferase 35 IU/L (<35); Albumin Globulin Ratio 1.4 (1.0-2.8); Alkaline Phosphatase 69 U/L (38-126); BUN Creatinine Ratio 32.1 (6-22); Bilirubin Total 0.8 mg/dL (0.2-1.3); Blood Urea Nitrogen 18 mg/dL (7-17); Calcium 8.4 mg/dL (8.4-10.2); Carbon Dioxide 29 mmol/L (22-32); Chloride 101 mmol/L (98-107); Estimated Glomerular Filt Rate > 60 mL/min (>60); Globulin 2.8 g/dL (1.7-4.1); Glucose 153 mg/dL (70-100); Sodium 137 mmol/L (137-145); Total Protein 6.8 g/dL (6.3-8.2)
[2022-04-25 06:39] LABS: HEMOLYSIS 69 (0-50)
[2022-04-25 06:40] LABS: Add Manual Diff / Slide Review NO; Basophils Absolute Auto 0 /uL (0-100); Basophils Percent Auto 0.4 % (0-2); Eosinophils Absolute Auto 0 /uL (0-450); Eosinophils Percent Auto 0.4 % (2-4); Hematocrit 40.6 % (36-46); Hemoglobin 13.7 g/dL (12.0-16.0); Lymphocytes Absolute Auto 800 /uL (1100-4500); Lymphocytes Percent Auto 14.4 % (25-40); Mean Corpuscular HGB Conc 33.8 % (30-36); Mean Corpuscular Hemoglobin 30.6 PG (26-34); Mean Corpuscular Volume 90.5 fL (80-100); Monocytes Absolute Auto 0 /uL (0-900); Monocytes Percent Auto 0.6 % (3-14); Neutrophils Absolute Auto 4700 /uL (1500-7000); Neutrophils Percent Auto 84.2 % (50-75); Platelet Count 164 X10^3/uL (150-400); Red Blood Cell Count 4.49 X10^6/uL (4.0-5.2); White Blood Cell Count 5.6 X10^3/uL (4.5-11.0)
[2022-04-25 06:40] LABS: Potassium 4.4 mmol/L (3.4-5.1)
[2022-04-25 06:41] LABS: Aspartate Aminotransferase 48 IU/L (14-36)
[2022-04-25] MEDS: HEPARIN 5,000 UNIT/ML VIAL 5000 UNIT SUBCUT ×2 (08:31→21:01)
[2022-04-25] MEDS: PANTOPRAZOLE 40 MG VIAL IV (08:32)
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
[2022-04-25 10:04] LABS: Fractionated Inspired Oxygen 30; HCO3 ABG 30 mmol/L (22-26); Oxygen Saturation ABG 95 % (95-100); PCO2 ABG 43.4 mmHg (35-45); PO2 ABG 71 mmHg (80-100); TCO2 ABG 31 mmol/L (21-31); pH ABG 7.45 (7.35-7.45)
[2022-04-25] MEDS: MIDAZOLAM 2 MG/2 ML VIAL IV ×3 (11:42→17:57)
[2022-04-25] MEDS: LACTATED RINGERS 1,000 ML 1000 ML IV (11:42)
--- NOTE | 2022-04-25 12:02 | DIET.CONS ---
Dietary Consultation Note Admission Date: 04/24/2022 21:11 Assessment: 56 t/o F admitted for SOB was intubated secondary to laryngeal edema obstructing her airway. H/o heroin use. RD consulted for TF recs. Met with . States she does not eat regular meals. She grazes on goodies all day, ie fruit and cookies. Reports he noticed a decrease in food intake over the last week likely r/t SOB. States he is unsure of any wt loss or her UBW. No previous wts documented in EMR. Currently no 50 mcg/kg/min of propofol. The propofol is limiting the amount of protein and carbohydrate that can be provided in order to avoid overfeeding with higher kcal recs. TF rate should be adjusted once propofol is reduced. Cr 0.56, GFR >60, Glucose 153 H, AST 48 H, ALT 35 H Ht: 152.4 cm Wt: 77 kg BMI: 33.1 UBW: unknown Last BM: () MNA: 12 Jefe Score: 13 Diet: 04/25/22 Lunch Tube Feeding Diet Diet Modifications: Protein packets: 2 @ 800 ; 2 @ 1300 ; 2@ 1700 TF Supplement type: Pivot 1.5 TF mode of delivery: Continuous Starting flow rate mL/hr: 10 Flow rate goal mL/hr: 10 Titration Schedule to reach Goal Rate: 0 Max total daily volume in mL: 2,400 Free fluid: 350 Free Water Frequency: Q4H Labs: RBC 4.49 X10^6/uL (4.0-5.2) 04/25/22 06:00 Hgb 13.7 g/dL (12.0-16.0) 04/25/22 06:00 Hct 40.6 % (36-46) 04/25/22 06:00 Creatinine 0.56 mg/dL (0.52-1.04) 04/25/22 05:00 Nutrition Diagnosis: Inadequate oral intake r/t intubation aeb insufficient energy intake compared to estimated energy expenditure Interventions: 1. Recc feeding continuous Pivot 1.5 at goal rate of 10 ml/hr. 2. Provide six protein packets (2@ 800, 2@1300, 2@1700) daily to support protein needs. This provides 89g PRO, 85-100% of needs. 3. Rec 350 ml free water flushes q 4 hr. Hospitalist to manage fluids. Daily fluid reccs 1490-1284 ml. Formula provides 182mL with flushes fluids equal 2282ml, meeting 95-99% of needs. 4. Current propofol @ 50 mcg/kg/min is providing 610 kcals. Propofol plus formula provides 1190 kcals, meeting 86% kcals. 5. HOB elevated at least 30 degrees at all time to reduce risk of aspiration. 6. Daily weights please. 7. Pt at risk for refeeding, check refeeding labs and replenish prn and rec glucose management. EER: 5992-2555 kcals, 87-104g protein, 6275-9965 ml fluids 18 kcal/kg (per obesity + vent using actual BW) 1.5-1.8g/kg protein (per obesity + vent, ABW of 58kg) 30ml/kg fluids (using actual BW) Monitoring/Evaluations: TF tolerance, weight, refeeeding labs. RD to re-evaluate on 04/28/22. Electronically Signed by: Maru Vazquez 04/25/22 12:02 Clinical Dietitian [address] [id number]
[2022-04-25] MEDS: fentaNYL 1,000 MCG in DEXTROSE 5% IN WATER 230 ML 20.412 MCG IV (12:06)
--- NOTE | 2022-04-25 12:12 | P.PN_ITS ---
Subjective Subjective Date Patient Seen: 04/25/22 Interval history: 56 year old female intubated in the emergency room for laryngeal edema and airway protection. She remains intubated today, there is possible concern for a toxic ingestion from smoking. Will continue steroids and Unasyn for now. Unasyn can be discontinued if strep testing is negative. Exam Vital Signs (past 8 hours): - 04/25/22 04:30 04/25/22 04:30 04/25/22 05:00 Pulse Rate 84 Respiratory Rate 16 Blood Pressure 128/86 128/85 Pulse Oximetry 99 Oxygen Delivery Method 04/25/22 05:00 04/25/22 05:30 04/25/22 05:30 Pulse Rate 85 85 Respiratory Rate 16 16 Blood Pressure 130/84 Pulse Oximetry 99 99 Oxygen Delivery Method 04/25/22 06:00 04/25/22 06:00 04/25/22 07:00 Pulse Rate 89 Respiratory Rate 18 Blood Pressure 133/81 133/82 Pulse Oximetry 99 Oxygen Delivery Method 04/25/22 07:00 04/25/22 07:30 04/25/22 07:30 Pulse Rate 86 90 Respiratory Rate 16 20 Blood Pressure 123/81 Pulse Oximetry 98 99 Oxygen Delivery Method 04/25/22 08:00 04/25/22 08:00 04/25/22 07:00 Pulse Rate 87 Respiratory Rate 16 Blood Pressure 134/89 Pulse Oximetry 98 Oxygen Delivery Method Mechanical Ventilation 04/25/22 08:30 04/25/22 08:30 04/25/22 09:00 Pulse Rate 83 Respiratory Rate 16 Blood Pressure 132/86 136/84 Pulse Oximetry 100 Oxygen Delivery Method 04/25/22 09:00 04/25/22 09:30 04/25/22 09:30 Pulse Rate 81 81 Respiratory Rate 16 16 Blood Pressure 139/85 Pulse Oximetry 100 100 Oxygen Delivery Method 04/25/22 09:59 04/25/22 09:59 04/25/22 10:00 Pulse Rate 86 Respiratory Rate 17 Blood Pressure 116/74 116/76 Pulse Oximetry 100 Oxygen Delivery Method 04/25/22 10:00 04/25/22 10:30 04/25/22 11:00 Pulse Rate 82 80 Respiratory Rate 17 16 Blood Pressure 119/73 Pulse Oximetry 99 98 Oxygen Delivery Method 04/25/22 11:00 04/25/22 11:30 04/25/22 12:00 Pulse Rate 79 90 Respiratory Rate 16 10 L Blood Pressure 115/75 Pulse Oximetry 99 99 Oxygen Delivery Method 04/25/22 12:00 Pulse Rate 82 Respiratory Rate 16 Blood Pressure Pulse Oximetry 98 Oxygen Delivery Method Oxygen Delivery Method Mechanical Ventilation Narrative Exam Narrative: GEN: intubated, sedated, arousable but falls asleep quickly. HEENT: moist mucous membranes, PERRL NECK: trachea midline, no JVD, tender to palpation anterior neck, no mass felt PULM: clear bilaterally, no wheezes, rhonchi, rales CV: regular rate and rhythm, no murmurs ABD: soft, nontender, nondistended, no organomegaly, normal bowel sounds EXT: warm and well perfused, with no edema NEURO: sedated, but will arouse briefly and follow commands. Objective Labs Result Diagrams: 04/25/22 06:00 04/25/22 05:00 Labs: Laboratory Results - last 24 hr 04/24/22 04/24/22 04/24/22 17:30 17:30 17:30 WBC 6.5 RBC 4.75 Hgb 14.9 Hct 43.5 MCV 91.5 MCH 31.4 MCHC 34.3 RDW 13.3 Plt Count 167 Neut % (Auto) 50.2 Lymph % (Auto) 34.5 [place] % (Auto) 9.0 Eos % (Auto) 5.5 H Baso % (Auto) 0.8 Neut # (Auto) 3300 Lymph # (Auto) 2300 [place] # (Auto) 600 Eos # (Auto) 400 Baso # (Auto) 100 ABG pH ABG pCO2 ABG pO2 ABG HCO3 ABG Total CO2 ABG O2 Saturation ABG Base Excess FiO2 Sodium 139 Potassium 4.1 Chloride 102 Carbon Dioxide 31 BUN 18 H Creatinine 0.69 Estimated GFR > 60 BUN/Creatinine Ratio 26.1 H Glucose 87 Calcium 9.1 Total Bilirubin 0.8 AST 48 H ALT 37 H Alkaline Phosphatase 77 Total Creatine Kinase 164 H CK-MB (CK-2) 5.58 H CK-MB (CK-2) Rel Index 3.4 Troponin I < 0.012 Total Protein 7.2 Albumin 4.4 Globulin 2.8 Albumin/Globulin Ratio 1.6 Nasal Screen MRSA (PCR) U Opiates 300ng/mL cut Ur Oxycodone Screen Urine Methadone Screen Ur Barbiturates Screen U Tricyclic Antidepress Ur Phencyclidine Scrn Ur Amphetamines Screen U Methamphetamines Scrn Ur MDMA Scrn (Ecstasy) U Benzodiazepines Scrn Urine Cocaine Screen U Marijuana (THC) Screen SARS-CoV-2 (PCR) 04/24/22 04/24/22 04/24/22 19:40 21:20 22:10 WBC RBC Hgb Hct MCV MCH MCHC RDW Plt Count Neut % (Auto) Lymph % (Auto) [place] % (Auto) Eos % (Auto) Baso % (Auto) Neut # (Auto) Lymph # (Auto) [place] # (Auto) Eos # (Auto) Baso # (Auto) ABG pH 7.36 ABG pCO2 53.4 H ABG pO2 126 H ABG HCO3 30 H ABG Total CO2 31 ABG O2 Saturation 99 ABG Base Excess 4.0 H FiO2 60 Sodium Potassium Chloride Carbon Dioxide BUN Creatinine Estimated GFR BUN/Creatinine Ratio Glucose Calcium Total Bilirubin AST ALT Alkaline Phosphatase Total Creatine Kinase CK-MB (CK-2) CK-MB (CK-2) Rel Index Troponin I Total Protein Albumin Globulin Albumin/Globulin Ratio Nasal Screen MRSA (PCR) Negative for mrsa U Opiates 300ng/mL cut Ur Oxycodone Screen Urine Methadone Screen Ur Barbiturates Screen U Tricyclic Antidepress Ur Phencyclidine Scrn Ur Amphetamines Screen U Methamphetamines Scrn Ur MDMA Scrn (Ecstasy) U Benzodiazepines Scrn Urine Cocaine Screen U Marijuana (THC) Screen SARS-CoV-2 (PCR) Negative 04/24/22 04/25/22 04/25/22 22:30 05:00 06:00 WBC 5.6 RBC 4.49 Hgb 13.7 Hct 40.6 MCV 90.5 MCH 30.6 MCHC 33.8 RDW 13.0 Plt Count 164 Neut % (Auto) 84.2 H D Lymph % (Auto) 14.4 L D [place] % (Auto) 0.6 L Eos % (Auto) 0.4 L Baso % (Auto) 0.4 Neut # (Auto) 4700 Lymph # (Auto) 800 L [place] # (Auto) 0 Eos # (Auto) 0 Baso # (Auto) 0 ABG pH ABG pCO2 ABG pO2 ABG HCO3 ABG Total CO2 ABG O2 Saturation ABG Base Excess FiO2 Sodium 137 Potassium 4.4 Chloride 101 Carbon Dioxide 29 BUN 18 H Creatinine 0.56 Estimated GFR > 60 BUN/Creatinine Ratio 32.1 H Glucose 153 H Calcium 8.4 Total Bilirubin 0.8 AST 48 H ALT 35 H Alkaline Phosphatase 69 Total Creatine Kinase CK-MB (CK-2) CK-MB (CK-2) Rel Index Troponin I Total Protein 6.8 Albumin 4.0 Globulin 2.8 Albumin/Globulin Ratio 1.4 Nasal Screen MRSA (PCR) U Opiates 300ng/mL cut Positive H Ur Oxycodone Screen Negative Urine Methadone Screen Negative Ur Barbiturates Screen Negative U Tricyclic Antidepress Negative Ur Phencyclidine Scrn Negative Ur Amphetamines Screen Positive H U Methamphetamines Scrn Positive H Ur MDMA Scrn (Ecstasy) Negative U Benzodiazepines Scrn Negative Urine Cocaine Screen Negative U Marijuana (THC) Screen Negative SARS-CoV-2 (PCR) 04/25/22 09:44 WBC RBC Hgb Hct MCV MCH MCHC RDW Plt Count Neut % (Auto) Lymph % (Auto) [place] % (Auto) Eos % (Auto) Baso % (Auto) Neut # (Auto) Lymph # (Auto) [place] # (Auto) Eos # (Auto) Baso # (Auto) ABG pH 7.45 ABG pCO2 43.4 ABG pO2 71 L ABG HCO3 30 H ABG Total CO2 31 ABG O2 Saturation 95 ABG Base Excess 6.0 H FiO2 30 Sodium Potassium Chloride Carbon Dioxide BUN Creatinine Estimated GFR BUN/Creatinine Ratio Glucose Calcium Total Bilirubin AST ALT Alkaline Phosphatase Total Creatine Kinase CK-MB (CK-2) CK-MB (CK-2) Rel Index Troponin I Total Protein Albumin Globulin Albumin/Globulin Ratio Nasal Screen MRSA (PCR) U Opiates 300ng/mL cut Ur Oxycodone Screen Urine Methadone Screen Ur Barbiturates Screen U Tricyclic Antidepress Ur Phencyclidine Scrn Ur Amphetamines Screen U Methamphetamines Scrn Ur MDMA Scrn (Ecstasy) U Benzodiazepines Scrn Urine Cocaine Screen U Marijuana (THC) Screen SARS-CoV-2 (PCR) [facility] Social History household members: spouse Smoking Status: Current every day smoker Assessment & Plan Assessment & Plan narrative: Ms. Santana is a 56W with H active smoker, heroin abuse who presents with acute on chronic stridor found to have laryngeal edema. 1. Acute hypoxemic respiratory failure from laryngeal edema -secondary to laryngeal edema -patient intubated due to significant edema -treat laryngeal edema as below -propofol and fentanyl for sedation 2. Laryngeal edema -etiology not clear, but suspect smoking injury with toxic product -strep screen to eval for strep throat, ordered unasyn in case. Discontinue if negative. -ordered dexamethasone -consider ENT eval when extubated to eval for mass 3. Hypotenstion -secondary to medication effect, on arrival BP was normal -MAP goal >65 4. Active opiate, methamphetamine, and tobacco abuse -may need significant sedation to prevent self-extubation -social work consult when extubated -UDS positive for opiates, methamphetamines 5. Lung nodules -will need further follow up, likely as outpatient, given smoking history to eval for malignancy CODE: Full Proxy: Keith Santana, I have utilized all available resources to reconcile the patient's home medications. I spent 35 minutes providing critical care management this patient. This excludes time spent in performing separately billed procedures. Time Spent With Patient Critical Care time: I spent a total of [] minutes of critical care time on this patient's care today; this time is exclusive of procedural time.
--- NOTE | 2022-04-25 12:50 | P.TELICUPN_ITS ---
Subjective Subjective If camera was activated, add TeleICU A-V statement: patient seen via two way AV system. Sedated and intubated. no leak today per respiratory. awaitanne marie holland for Consent obtained for tele-rubber mill tender care: No (intubated, could not ) Patient Location: ICU Provider location (State): [place] Other participants/roles: na Current Medications Current Medications Medications: Home Medications gabapentin 100 mg capsule 300 mg ##0 08/24/16 [History] hydromorphone 4 mg tablet (Dilaudid) ##0 08/24/16 [History] hydromorphone 4 mg tablet (Dilaudid) 4 mg PO QIDP PRN #10 tabs 08/24/16 [Rx] methadone 10 mg tablet 20 mg PO BID ##0 08/24/16 [History] cephalexin 500 mg capsule (Keflex) 500 mg PO QID #10 caps 08/27/16 [Rx] hydrocodone 5 mg-acetaminophen 325 mg tablet ([place]) 1 tab PO Q6HP PRN #6 tabs 08/27/16 [Rx] hydrocodone 7.5 mg-acetaminophen 325 mg tablet ([place]) 1 tab PO Q6HP PRN #14 tabs 10/06/16 [Rx] sulfamethoxazole 800 mg-trimethoprim 160 mg tablet 1 tab PO BID #14 tabs 06/14 [Rx] Visit Medications (administered) Generic Name Dose Route Start Last Admin Trade Name Freq PRN Reason Stop Dose Admin Chlorhexidine Gluconate 15 ml 04/25/22 00:00 04/25/22 11:42 Chlorhexidine Gluconate 15 Ml Cup PO 15 ml Q6HR AV Administration Dexamethasone 4 mg 04/25/22 01:00 04/25/22 07:20 Dexamethasone 4 Mg/Ml Vial IV 4 mg Q6H AV Administration Heparin Sodium (Porcine) 5,000 unit 04/25/22 09:00 04/25/22 08:31 Heparin 5,000 Unit/Ml Vial SUBCUT 5,000 unit BID AV Administration Propofol 1,000 mg in 100 mls @ 2.449 mls/hr 04/24/22 20:00 04/25/22 09:29 Propofol IV 50 mcg/kg/min TITRATE AV 24.494 mls/hr Administration Protocol 5 MCG/KG/MIN Fentanyl 1,000 mcg/ Dextrose 250 mls @ 14.288 mls/hr 04/24/22 21:30 04/25/22 12:06 IV 1 mcg/kg/hr TITRATE AV 20.412 mls/hr Administration Protocol 0.7 MCG/KG/HR Ampicillin Sodium/Sulbactam 100 mls @ 100 mls/hr 04/24/22 22:00 04/25/22 10:19 Sodium 3 gm/ Sodium Chloride IV 100 mls/hr Q6H AV Administration Midazolam HCl 2 mg 04/25/22 11:25 04/25/22 11:42 Midazolam 2 Mg/2 Ml Vial IV 2 mg Q3HR PRN Administration Agitation Pantoprazole Sodium 40 mg 04/25/22 09:00 04/25/22 08:32 Pantoprazole 40 Mg Vial IV 40 mg DAILY AV Administration Objective Ventilator Parameters: Ventilator Settings FiO2 30 RT Vent Frequency 16 Ventilator Tidal Volume 430 Exhaled Positive End Expiratory 5 Pressure Inspiratory Phase Time 0.9 I:E Ratio 1:3.2 Patient Position HOB >= 30 degrees Labs Result Diagrams: 04/25/22 06:00 04/25/22 05:00 Labs: Laboratory Results - last 24 hr 04/24/22 04/24/22 04/24/22 17:30 17:30 17:30 WBC 6.5 RBC 4.75 Hgb 14.9 Hct 43.5 MCV 91.5 MCH 31.4 MCHC 34.3 RDW 13.3 Plt Count 167 Neut % (Auto) 50.2 Lymph % (Auto) 34.5 [place] % (Auto) 9.0 Eos % (Auto) 5.5 H Baso % (Auto) 0.8 Neut # (Auto) 3300 Lymph # (Auto) 2300 [place] # (Auto) 600 Eos # (Auto) 400 Baso # (Auto) 100 ABG pH ABG pCO2 ABG pO2 ABG HCO3 ABG Total CO2 ABG O2 Saturation ABG Base Excess FiO2 Sodium 139 Potassium 4.1 Chloride 102 Carbon Dioxide 31 BUN 18 H Creatinine 0.69 Estimated GFR > 60 BUN/Creatinine Ratio 26.1 H Glucose 87 Calcium 9.1 Total Bilirubin 0.8 AST 48 H ALT 37 H Alkaline Phosphatase 77 Total Creatine Kinase 164 H CK-MB (CK-2) 5.58 H CK-MB (CK-2) Rel Index 3.4 Troponin I < 0.012 Total Protein 7.2 Albumin 4.4 Globulin 2.8 Albumin/Globulin Ratio 1.6 Nasal Screen MRSA (PCR) U Opiates 300ng/mL cut Ur Oxycodone Screen Urine Methadone Screen Ur Barbiturates Screen U Tricyclic Antidepress Ur Phencyclidine Scrn Ur Amphetamines Screen U Methamphetamines Scrn Ur MDMA Scrn (Ecstasy) U Benzodiazepines Scrn Urine Cocaine Screen U Marijuana (THC) Screen SARS-CoV-2 (PCR) 04/24/22 04/24/22 04/24/22 19:40 21:20 22:10 WBC RBC Hgb Hct MCV MCH MCHC RDW Plt Count Neut % (Auto) Lymph % (Auto) [place] % (Auto) Eos % (Auto) Baso % (Auto) Neut # (Auto) Lymph # (Auto) [place] # (Auto) Eos # (Auto) Baso # (Auto) ABG pH 7.36 ABG pCO2 53.4 H ABG pO2 126 H ABG HCO3 30 H ABG Total CO2 31 ABG O2 Saturation 99 ABG Base Excess 4.0 H FiO2 60 Sodium Potassium Chloride Carbon Dioxide BUN Creatinine Estimated GFR BUN/Creatinine Ratio Glucose Calcium Total Bilirubin AST ALT Alkaline Phosphatase Total Creatine Kinase CK-MB (CK-2) CK-MB (CK-2) Rel Index Troponin I Total Protein Albumin Globulin Albumin/Globulin Ratio Nasal Screen MRSA (PCR) Negative for mrsa U Opiates 300ng/mL cut Ur Oxycodone Screen Urine Methadone Screen Ur Barbiturates Screen U Tricyclic Antidepress Ur Phencyclidine Scrn Ur Amphetamines Screen U Methamphetamines Scrn Ur MDMA Scrn (Ecstasy) U Benzodiazepines Scrn Urine Cocaine Screen U Marijuana (THC) Screen SARS-CoV-2 (PCR) Negative 04/24/22 04/25/22 04/25/22 22:30 05:00 06:00 WBC 5.6 RBC 4.49 Hgb 13.7 Hct 40.6 MCV 90.5 MCH 30.6 MCHC 33.8 RDW 13.0 Plt Count 164 Neut % (Auto) 84.2 H D Lymph % (Auto) 14.4 L D [place] % (Auto) 0.6 L Eos % (Auto) 0.4 L Baso % (Auto) 0.4 Neut # (Auto) 4700 Lymph # (Auto) 800 L [place] # (Auto) 0 Eos # (Auto) 0 Baso # (Auto) 0 ABG pH ABG pCO2 ABG pO2 ABG HCO3 ABG Total CO2 ABG O2 Saturation ABG Base Excess FiO2 Sodium 137 Potassium 4.4 Chloride 101 Carbon Dioxide 29 BUN 18 H Creatinine 0.56 Estimated GFR > 60 BUN/Creatinine Ratio 32.1 H Glucose 153 H Calcium 8.4 Total Bilirubin 0.8 AST 48 H ALT 35 H Alkaline Phosphatase 69 Total Creatine Kinase CK-MB (CK-2) CK-MB (CK-2) Rel Index Troponin I Total Protein 6.8 Albumin 4.0 Globulin 2.8 Albumin/Globulin Ratio 1.4 Nasal Screen MRSA (PCR) U Opiates 300ng/mL cut Positive H Ur Oxycodone Screen Negative Urine Methadone Screen Negative Ur Barbiturates Screen Negative U Tricyclic Antidepress Negative Ur Phencyclidine Scrn Negative Ur Amphetamines Screen Positive H U Methamphetamines Scrn Positive H Ur MDMA Scrn (Ecstasy) Negative U Benzodiazepines Scrn Negative Urine Cocaine Screen Negative U Marijuana (THC) Screen Negative SARS-CoV-2 (PCR) 04/25/22 09:44 WBC RBC Hgb Hct MCV MCH MCHC RDW Plt Count Neut % (Auto) Lymph % (Auto) [place] % (Auto) Eos % (Auto) Baso % (Auto) Neut # (Auto) Lymph # (Auto) [place] # (Auto) Eos # (Auto) Baso # (Auto) ABG pH 7.45 ABG pCO2 43.4 ABG pO2 71 L ABG HCO3 30 H ABG Total CO2 31 ABG O2 Saturation 95 ABG Base Excess 6.0 H FiO2 30 Sodium Potassium Chloride Carbon Dioxide BUN Creatinine Estimated GFR BUN/Creatinine Ratio Glucose Calcium Total Bilirubin AST ALT Alkaline Phosphatase Total Creatine Kinase CK-MB (CK-2) CK-MB (CK-2) Rel Index Troponin I Total Protein Albumin Globulin Albumin/Globulin Ratio Nasal Screen MRSA (PCR) U Opiates 300ng/mL cut Ur Oxycodone Screen Urine Methadone Screen Ur Barbiturates Screen U Tricyclic Antidepress Ur Phencyclidine Scrn Ur Amphetamines Screen U Methamphetamines Scrn Ur MDMA Scrn (Ecstasy) U Benzodiazepines Scrn Urine Cocaine Screen U Marijuana (THC) Screen SARS-CoV-2 (PCR) Exam Vital Signs (past 8 hours): - 04/25/22 05:00 04/25/22 05:00 04/25/22 05:30 Pulse Rate 85 Respiratory Rate 16 Blood Pressure 128/85 130/84 Pulse Oximetry 99 Oxygen Delivery Method 04/25/22 05:30 04/25/22 06:00 04/25/22 06:00 Pulse Rate 85 89 Respiratory Rate 16 18 Blood Pressure 133/81 Pulse Oximetry 99 99 Oxygen Delivery Method 04/25/22 07:00 04/25/22 07:00 04/25/22 07:30 Pulse Rate 86 Respiratory Rate 16 Blood Pressure 133/82 123/81 Pulse Oximetry 98 Oxygen Delivery Method 04/25/22 07:30 04/25/22 08:00 04/25/22 08:00 Pulse Rate 90 87 Respiratory Rate 20 16 Blood Pressure 134/89 Pulse Oximetry 99 98 Oxygen Delivery Method 04/25/22 07:00 04/25/22 08:30 04/25/22 08:30 Pulse Rate 83 Respiratory Rate 16 Blood Pressure 132/86 Pulse Oximetry 100 Oxygen Delivery Method Mechanical Ventilation 04/25/22 09:00 04/25/22 09:00 04/25/22 09:30 Pulse Rate 81 Respiratory Rate 16 Blood Pressure 136/84 139/85 Pulse Oximetry 100 Oxygen Delivery Method 04/25/22 09:30 04/25/22 09:59 04/25/22 09:59 Pulse Rate 81 86 Respiratory Rate 16 17 Blood Pressure 116/74 Pulse Oximetry 100 100 Oxygen Delivery Method 04/25/22 10:00 04/25/22 10:00 04/25/22 10:30 Pulse Rate 82 80 Respiratory Rate 17 16 Blood Pressure 116/76 Pulse Oximetry 99 98 Oxygen Delivery Method 04/25/22 11:00 04/25/22 11:00 04/25/22 11:30 Pulse Rate 79 90 Respiratory Rate 16 10 L Blood Pressure 119/73 Pulse Oximetry 99 99 Oxygen Delivery Method 04/25/22 12:00 04/25/22 12:00 Pulse Rate 82 Respiratory Rate 16 Blood Pressure 115/75 Pulse Oximetry 98 Oxygen Delivery Method Oxygen Delivery Method Mechanical Ventilation Narrative Exam Narrative: surrogate for exam is primary team Assessment & Plan Assessment and plan (1) Acute respiratory failure: Status: Acute (2) Edema of larynx: Status: Acute (3) Stridor: Status: Acute Assessment & Plan narrative: NEURO: -- On propofol infusion -- Added fentanyl for pain control -- versed pushes prn -- RASS goal -1 to 0 -- Seek early mobility -- Daily CAM ICU RESP: -- resp failure due to laryngeal edema -- Meeting goals of oxygenation and ventilation -- HOB elevation -- Aspiration precaution -- Daily SAT and SBT -- Daily cuff leak assessment -- unasyn -- Check resp cx -- Daily cuff leak assessment? -- May warrant ENT evaluation -- dexamethasone CVS: # Hypotension -- Secondary to sedatives and positive pressure -- Anesthesia consulted for CVC -- MAP goal > 65 ENDO: -- Goal BS < 180 RENAL -- Uo decreasing, IVF bolus given -- trend bmp -- monitor UO D/w RN and RT at bedside. CCT 42 min Time Spent With Patient Critical Care time: I spent a total of [] minutes of critical care time on this patient's care today; this time is exclusive of procedural time.
--- NOTE | 2022-04-25 19:38 | PM.ICURNDS ---
- :: This patient was seen via real time interactive two-way audiovisual telecommunication. Note: Called by RN patient is maxed out on propofol and fentanyl. w/ RASS +2. She is wide awake but not ready to be extubated due to laryngeal edema. Will add versed infusion to titrate for RASS goal 0. Cont abx and decadron. D/w RN and patient at bedside.
[2022-04-25] MEDS: MIDAZOLAM 50 MG in DEXTROSE 5% IN WATER 240 ML 25 MG IV (21:00)
[2022-04-25] MEDS: fentaNYL 1,000 MCG in DEXTROSE 5% IN WATER 230 ML 40.824 MCG IV (21:19)
[2022-04-26] VITALS (65 sets, daily range): BP systolic 100–141; BP diastolic 58–84; PULSE 61–97; RESP 12–37; TEMP 36.2–37.2; O2SAT 90–100
[2022-04-26] MEDS: DEXAMETHASONE 4 MG/ML VIAL IV ×4 (00:31→19:31)
[2022-04-26] MEDS: AMPICILLIN/SULBACTAM 3 GM 3 GM in SODIUM CHLORIDE 0.9% 100 ML IV ×4 (03:30→21:42)
[2022-04-26] MEDS: propofoL 1,000 MG/100 ML VIAL 14.696 MG IV ×3 (04:00→18:10)
--- NOTE | 2022-04-26 04:54 | PC.NURSE ---
Addendum entered by Mahnaz Ortiz R.N. 04/26/22 06:43: I agree with with Graciela RN assessments, interventions, and documentations. See vital trends and [facility] med documentations. Original Note: Coming on shift, pt was angry and restless while maxed on Propofol and Fentanyl. Habilitation Assistant was was called for updates on patient condition. Versed was order and started at 25 mL/hr. Patient behavior stabilized shortly after and a RASS of -3 to -2 was maintained to keep pt from self extubating. IVs in both hands were removed due to pt frequently moving. BPs were on the softer side due to increased sedation for most of the night, but MAPs were maintained between high 70s to low 80s.
[2022-04-26] MEDS: fentaNYL 1,000 MCG in DEXTROSE 5% IN WATER 230 ML 40.824 MCG IV ×3 (05:13→21:45)
[2022-04-26] MEDS: CHLORHEXIDINE GLUCONATE 15 ML CUP PO ×4 (05:34→23:59)
--- NOTE | 2022-04-26 05:47 | RT ---
AM Air cuff leak, Very minimal air leak noted.
[2022-04-26 05:48] LABS: Add Manual Diff / Slide Review NO; Basophils Absolute Auto 0 /uL (0-100); Basophils Percent Auto 0.2 % (0-2); Eosinophils Absolute Auto 0 /uL (0-450); Eosinophils Percent Auto 0.1 % (2-4); Hematocrit 40.9 % (36-46); Lymphocytes Absolute Auto 700 /uL (1100-4500); Lymphocytes Percent Auto 5.7 % (25-40); Mean Corpuscular HGB Conc 34.3 % (30-36); Mean Corpuscular Hemoglobin 30.9 PG (26-34); Mean Corpuscular Volume 90.2 fL (80-100); Monocytes Absolute Auto 500 /uL (0-900); Monocytes Percent Auto 3.9 % (3-14); Neutrophils Absolute Auto 11000 /uL (1500-7000); Neutrophils Percent Auto 90.1 % (50-75); Platelet Count 151 X10^3/uL (150-400); Red Blood Cell Count 4.53 X10^6/uL (4.0-5.2); Red Cell Distribution Width 13.1 % (11.6-14.8); White Blood Cell Count 12.1 X10^3/uL (4.5-11.0)
[2022-04-26 05:57] LABS: Alanine Aminotransferase 24 IU/L (<35); Albumin 3.5 g/dL (3.5-5.0); Albumin Globulin Ratio 1.3 (1.0-2.8); Alkaline Phosphatase 60 U/L (38-126); Aspartate Aminotransferase 28 IU/L (14-36); BUN Creatinine Ratio 32.7 (6-22); Bilirubin Total 0.6 mg/dL (0.2-1.3); Blood Urea Nitrogen 18 mg/dL (7-17); Calcium 8.3 mg/dL (8.4-10.2); Carbon Dioxide 30 mmol/L (22-32); Chloride 104 mmol/L (98-107); Estimated Glomerular Filt Rate > 60 mL/min (>60); Globulin 2.7 g/dL (1.7-4.1); Glucose 163 mg/dL (70-100); HEMOLYSIS < 15 (0-50); Potassium 3.3 mmol/L (3.4-5.1); Sodium 137 mmol/L (137-145); Total Protein 6.2 g/dL (6.3-8.2)
[2022-04-26 07:34] LABS: HCO3 ABG 29 mmol/L (22-26); Oxygen Saturation ABG 95 % (95-100); PCO2 ABG 41.8 mmHg (35-45); PO2 ABG 74 mmHg (80-100); TCO2 ABG 30 mmol/L (21-31); pH ABG 7.45 (7.35-7.45)
[2022-04-26 07:35] LABS: Fractionated Inspired Oxygen 30
[2022-04-26] MEDS: MIDAZOLAM 50 MG in DEXTROSE 5% IN WATER 240 ML 20 MG IV (08:00)
[2022-04-26] MEDS: HEPARIN 5,000 UNIT/ML VIAL 5000 UNIT SUBCUT ×2 (08:51→21:01)
[2022-04-26] MEDS: PANTOPRAZOLE 40 MG VIAL IV (08:52)
--- NOTE | 2022-04-26 09:50 | PM.PN.EICU ---
Subjective Subjective If camera was activated, add TeleICU A-V statement: patient seen via two way AV system. Sedated and intubated. still has no leak today per respiratory. Consent obtained for tele-remote control mirror installer care: Yes Patient Location: ICU Provider location (State): Other participants/roles: ICU team Current Medications Current Medications Medications: Home Medications gabapentin 100 mg capsule 300 mg ##0 08/24/16 [History] hydromorphone 4 mg tablet (Dilaudid) ##0 08/24/16 [History] hydromorphone 4 mg tablet (Dilaudid) 4 mg PO QIDP PRN #10 tabs 08/24/16 [Rx] methadone 10 mg tablet 20 mg PO BID ##0 08/24/16 [History] cephalexin 500 mg capsule (Keflex) 500 mg PO QID #10 caps 08/27/16 [Rx] hydrocodone 5 mg-acetaminophen 325 mg tablet ([place]) 1 tab PO Q6HP PRN #6 tabs 08/27/16 [Rx] hydrocodone 7.5 mg-acetaminophen 325 mg tablet ([place]) 1 tab PO Q6HP PRN #14 tabs 10/06/16 [Rx] sulfamethoxazole 800 mg-trimethoprim 160 mg tablet 1 tab PO BID #14 tabs 10/06/16 [Rx] Visit Medications (administered) Generic Name Dose Route Start Last Admin Trade Name Freq PRN Reason Stop Dose Admin Chlorhexidine Gluconate 15 ml 04/25/22 00:00 04/26/22 09:48 Chlorhexidine Gluconate 15 Ml Cup PO 15 ml Q6HR AV Administration Dexamethasone 4 mg 04/25/22 01:00 04/26/22 06:31 Dexamethasone 4 Mg/Ml Vial IV 4 mg Q6H AV Administration Heparin Sodium (Porcine) 5,000 unit 04/25/22 09:00 04/26/22 08:51 Heparin 5,000 Unit/Ml Vial SUBCUT 5,000 unit BID AV Administration Propofol 1,000 mg in 100 mls @ 2.449 mls/hr 04/24/22 20:00 04/26/22 04:00 Propofol IV 30 mcg/kg/min TITRATE AV 14.696 mls/hr Administration Protocol 5 MCG/KG/MIN Fentanyl 1,000 mcg/ Dextrose 250 mls @ 14.288 mls/hr 04/24/22 21:30 04/26/22 05:13 IV 2 mcg/kg/hr TITRATE AV 40.824 mls/hr Administration Protocol 0.7 MCG/KG/HR Ampicillin Sodium/Sulbactam 100 mls @ 100 mls/hr 04/24/22 22:00 04/26/22 09:25 Sodium 3 gm/ Sodium Chloride IV 100 mls/hr Q6H AV Administration Midazolam HCl 50 mg/ Dextrose 250 mls @ 25 mls/hr 04/25/22 19:45 04/26/22 08:00 IV 4 mg/hr TITRATE AV 20 mls/hr Administration Protocol 5 MG/HR Midazolam HCl 2 mg 04/25/22 11:25 04/25/22 17:57 Midazolam 2 Mg/2 Ml Vial IV 2 mg Q3HR PRN Administration Agitation Pantoprazole Sodium 40 mg 04/25/22 09:00 04/26/22 08:52 Pantoprazole 40 Mg Vial IV 40 mg DAILY AV Administration Objective Ventilator Parameters: Ventilator Settings FiO2 30 RT Vent Frequency 16 Ventilator Tidal Volume 430 Exhaled Positive End Expiratory 5 Pressure Inspiratory Phase Time 0.9 I:E Ratio 1:3.2 Patient Position HOB >= 30 degrees Labs Result Diagrams: 04/26/22 05:26 04/26/22 05:26 Labs: Laboratory Results - last 24 hr 04/25/22 04/26/22 04/26/22 09:44 05:26 05:26 WBC 12.1 H D RBC 4.53 Hgb 14.0 Hct 40.9 MCV 90.2 MCH 30.9 MCHC 34.3 RDW 13.1 Plt Count 151 Neut % (Auto) 90.1 H Lymph % (Auto) 5.7 L [place] % (Auto) 3.9 Eos % (Auto) 0.1 L Baso % (Auto) 0.2 Neut # (Auto) 16741 H Lymph # (Auto) 700 L [place] # (Auto) 500 Eos # (Auto) 0 Baso # (Auto) 0 ABG pH 7.45 ABG pCO2 43.4 ABG pO2 71 L ABG HCO3 30 H ABG Total CO2 31 ABG O2 Saturation 95 ABG Base Excess 6.0 H FiO2 30 Sodium 137 Potassium 3.3 L Chloride 104 Carbon Dioxide 30 BUN 18 H Creatinine 0.55 Estimated GFR > 60 BUN/Creatinine Ratio 32.7 H Glucose 163 H Calcium 8.3 L Total Bilirubin 0.6 AST 28 ALT 24 Alkaline Phosphatase 60 Total Protein 6.2 L Albumin 3.5 Globulin 2.7 Albumin/Globulin Ratio 1.3 04/26/22 07:17 WBC RBC Hgb Hct MCV MCH MCHC RDW Plt Count Neut % (Auto) Lymph % (Auto) [place] % (Auto) Eos % (Auto) Baso % (Auto) Neut # (Auto) Lymph # (Auto) [place] # (Auto) Eos # (Auto) Baso # (Auto) ABG pH 7.45 ABG pCO2 41.8 ABG pO2 74 L ABG HCO3 29 H ABG Total CO2 30 ABG O2 Saturation 95 ABG Base Excess 5.0 H FiO2 30 Sodium Potassium Chloride Carbon Dioxide BUN Creatinine Estimated GFR BUN/Creatinine Ratio Glucose Calcium Total Bilirubin AST ALT Alkaline Phosphatase Total Protein Albumin Globulin Albumin/Globulin Ratio Exam Vital Signs (past 8 hours): - 04/26/22 02:03 04/26/22 02:18 04/26/22 03:00 Temperature 97.6 F 97.6 F Pulse Rate 65 63 Respiratory Rate 16 16 Blood Pressure 100/65 102/67 Pulse Oximetry 100 100 Oxygen Delivery Method Fraction of Inspired Oxygen 30 30 04/26/22 04:00 04/26/22 04:32 04/26/22 04:00 Temperature 97.6 F Pulse Rate 62 Respiratory Rate 16 Blood Pressure 106/66 114/69 Pulse Oximetry 100 Oxygen Delivery Method Mechanical Ventilation Fraction of Inspired Oxygen 30 04/26/22 05:00 04/26/22 06:00 04/26/22 02:00 Temperature 97.6 F Pulse Rate 63 66 Respiratory Rate 16 16 Blood Pressure 117/75 113/75 102/63 Pulse Oximetry 100 99 Oxygen Delivery Method Fraction of Inspired Oxygen 30 30 04/26/22 02:00 04/26/22 02:06 04/26/22 02:06 Temperature Pulse Rate 65 65 Respiratory Rate 16 16 Blood Pressure 100/65 Pulse Oximetry 100 100 Oxygen Delivery Method Fraction of Inspired Oxygen 04/26/22 02:30 04/26/22 02:30 04/26/22 03:00 Temperature Pulse Rate 64 Respiratory Rate 16 Blood Pressure 102/63 102/67 Pulse Oximetry 100 Oxygen Delivery Method Fraction of Inspired Oxygen 04/26/22 03:00 04/26/22 03:30 04/26/22 03:31 Temperature Pulse Rate 63 63 63 Respiratory Rate 16 16 16 Blood Pressure Pulse Oximetry 100 100 94 Oxygen Delivery Method Fraction of Inspired Oxygen 04/26/22 03:31 04/26/22 04:00 04/26/22 04:00 Temperature Pulse Rate 62 Respiratory Rate 16 Blood Pressure 112/68 106/66 Pulse Oximetry 100 Oxygen Delivery Method Fraction of Inspired Oxygen 04/26/22 07:00 04/26/22 04:30 04/26/22 04:30 Temperature 97.1 F L Pulse Rate 61 Respiratory Rate 16 Blood Pressure 114/69 Pulse Oximetry 100 Oxygen Delivery Method Fraction of Inspired Oxygen 04/26/22 05:00 04/26/22 05:00 04/26/22 05:30 Temperature Pulse Rate 63 Respiratory Rate 16 Blood Pressure 117/75 105/72 Pulse Oximetry 100 Oxygen Delivery Method Fraction of Inspired Oxygen 04/26/22 05:30 04/26/22 06:00 04/26/22 06:00 Temperature Pulse Rate 67 66 Respiratory Rate 17 16 Blood Pressure 113/75 Pulse Oximetry 100 99 Oxygen Delivery Method Fraction of Inspired Oxygen 04/26/22 06:30 04/26/22 06:30 04/26/22 07:00 Temperature Pulse Rate 65 Respiratory Rate 16 Blood Pressure 112/72 131/78 Pulse Oximetry 99 Oxygen Delivery Method Fraction of Inspired Oxygen 04/26/22 07:00 04/26/22 08:00 04/26/22 07:30 Temperature Pulse Rate 67 97 H Respiratory Rate 16 Blood Pressure 125/67 125/76 Pulse Oximetry 100 Oxygen Delivery Method Fraction of Inspired Oxygen 04/26/22 07:30 04/26/22 08:00 04/26/22 08:01 Temperature Pulse Rate 66 65 Respiratory Rate 16 16 Blood Pressure 115/70 Pulse Oximetry 98 100 Oxygen Delivery Method Fraction of Inspired Oxygen 04/26/22 08:01 04/26/22 08:30 04/26/22 08:30 Temperature Pulse Rate 65 67 Respiratory Rate 16 19 Blood Pressure 121/72 Pulse Oximetry 100 100 Oxygen Delivery Method Fraction of Inspired Oxygen 04/26/22 09:00 04/26/22 09:01 04/26/22 09:01 Temperature Pulse Rate 73 73 Respiratory Rate 16 16 Blood Pressure 121/78 Pulse Oximetry 99 100 Oxygen Delivery Method Fraction of Inspired Oxygen Fraction of Inspired Oxygen 30 Oxygen Delivery Method Mechanical Ventilation Oxygen Flow Rate 0 Assessment & Plan Assessment & Plan narrative: Assessment and plan (1) Acute respiratory failure: ?Status:?Acute (2) Edema of larynx: ?Status:?Acute (3) Stridor: ?Status:?Acute Assessment & Plan narrative: NEURO: -- On propofol infusion -- On fentanyl for pain control -- versed pushes prn -- RASS goal -1 to 0 -- Seek early mobility -- Daily CAM ICU RESP: -- VC 16/430/30%/5 -- resp failure due to laryngeal edema -- Meeting goals of oxygenation and ventilation -- HOB elevation -- Aspiration precaution -- Daily SAT and SBT -- Daily cuff leak assessment -- Continue unasyn -- f/u resp cx -- Daily cuff leak assessment? -- May warrant ENT evaluation -- continue dexamethasone CVS: # Hypotension, resolved -- MAP goal > 65 ENDO: -- Goal BS < 180 RENAL -- +2.5 L over the past 24 hr -- Start IV lasix 40 mg bid -- trend bmp -- monitor UO -- decrease FWF to 200 mg Q4H D/w RN and RT at bedside. CCT 30 min Time Spent With Patient Critical Care time: I spent a total of [] minutes of critical care time on this patient's care today; this time is exclusive of procedural time. Time Spent With Patient Critical Care time: I spent a total of [30] minutes of critical care time on this patient's care today; this time is exclusive of procedural time.
[2022-04-26] MEDS: FUROSEMIDE 20 MG/2 ML VIAL IV ×2 (10:02→21:02)
[2022-04-26] MEDS: POTASSIUM CHLORIDE 20 MEQ/15 ML UDC TUBE ×2 (10:03→16:49)
[2022-04-26] MEDS: FAMOTIDINE 20 MG/2 ML VIAL IV ×2 (10:45→21:02)
--- NOTE | 2022-04-26 14:44 | PM.PN.1 ---
Subjective Subjective Date Patient Seen: 04/26/22 Interval history: 56-year-old female with active heroin dependence and tobacco dependence who is presently hospital day 2 admitted with laryngeal edema felt to be secondary to thermal injury from smoking heroin (anesthesia reported patient having history of a inhaling a heroin ember and her having evidence of eschar at the time of intubation). She remains intubated and mechanically ventilated. She is presently receiving sedation with propofol, fentanyl, and Versed. Overnight, she went from as needed Versed to a Versed drip secondary to agitation. She does shake her head no for pain or shortness of breath. RN and RT both report more lip swelling and perhaps tongue swelling today. Exam Vital Signs (past 8 hours): - 04/26/22 07:00 04/26/22 07:00 04/26/22 07:00 Temperature 97.1 F L Pulse Rate 67 Respiratory Rate 16 Blood Pressure 131/78 Pulse Oximetry 100 Oxygen Delivery Method 04/26/22 08:00 04/26/22 07:30 04/26/22 07:30 Temperature Pulse Rate 97 H 66 Respiratory Rate 16 Blood Pressure 125/67 125/76 Pulse Oximetry 98 Oxygen Delivery Method 04/26/22 08:00 04/26/22 08:01 04/26/22 08:01 Temperature Pulse Rate 65 65 Respiratory Rate 16 16 Blood Pressure 115/70 Pulse Oximetry 100 100 Oxygen Delivery Method 04/26/22 08:30 04/26/22 08:30 04/26/22 09:00 Temperature Pulse Rate 67 73 Respiratory Rate 19 16 Blood Pressure 121/72 Pulse Oximetry 100 99 Oxygen Delivery Method 04/26/22 09:01 04/26/22 09:01 04/26/22 10:00 Temperature Pulse Rate 73 91 H Respiratory Rate 16 Blood Pressure 121/78 118/71 Pulse Oximetry 100 Oxygen Delivery Method 04/26/22 09:30 04/26/22 09:30 04/26/22 10:00 Temperature Pulse Rate 68 70 Respiratory Rate 19 16 Blood Pressure 118/71 Pulse Oximetry 100 100 Oxygen Delivery Method 04/26/22 10:00 04/26/22 10:30 04/26/22 10:30 Temperature Pulse Rate 72 Respiratory Rate 20 Blood Pressure 125/73 113/65 Pulse Oximetry 99 Oxygen Delivery Method 04/26/22 11:00 04/26/22 11:00 04/26/22 12:00 Temperature 98.6 F Pulse Rate 71 Respiratory Rate 19 Blood Pressure 115/73 Pulse Oximetry 100 Oxygen Delivery Method 04/26/22 11:30 04/26/22 11:30 04/26/22 12:00 Temperature Pulse Rate 70 Respiratory Rate 16 Blood Pressure 105/64 115/68 Pulse Oximetry 96 Oxygen Delivery Method 04/26/22 12:00 04/26/22 12:00 04/26/22 12:30 Temperature Pulse Rate 69 Respiratory Rate 16 Blood Pressure 121/74 Pulse Oximetry 97 Oxygen Delivery Method Mechanical Ventilation 04/26/22 12:30 04/26/22 13:00 04/26/22 13:00 Temperature Pulse Rate 72 74 Respiratory Rate 28 H Blood Pressure 111/69 Pulse Oximetry 95 94 Oxygen Delivery Method 04/26/22 13:30 04/26/22 13:30 04/26/22 14:00 Temperature Pulse Rate 68 Respiratory Rate 18 Blood Pressure 105/64 109/67 Pulse Oximetry 96 Oxygen Delivery Method 04/26/22 14:00 Temperature Pulse Rate 68 Respiratory Rate 18 Blood Pressure Pulse Oximetry 96 Oxygen Delivery Method Fraction of Inspired Oxygen 30 Oxygen Delivery Method Mechanical Ventilation Oxygen Flow Rate 0 Narrative Exam Narrative: GEN: Intubated/sedated middle-aged female, opens her eyes and briefly nods yes or no questions, NAD HEENT:NC, Face symmetric, moderate lip swelling noted, lower lip worse than upper lip CHEST: Respiratory excursions symmetric, CTAB CV: RRR, no M/R/G ABD: Soft, NT/ND, BT present in all 4 quadrants, no organomegaly or masses EXTR: warm, well perfused, no C/C/E SKIN: warm and dry, no rash NEURO: Intubated, sedated, nonfocal Objective Labs Result Diagrams: 04/26/22 05:26 04/26/22 05:26 Labs: Laboratory Results - last 24 hr 04/26/22 04/26/22 04/26/22 05:26 05:26 07:17 WBC 12.1 H D RBC 4.53 Hgb 14.0 Hct 40.9 MCV 90.2 MCH 30.9 MCHC 34.3 RDW 13.1 Plt Count 151 Neut % (Auto) 90.1 H Lymph % (Auto) 5.7 L [place] % (Auto) 3.9 Eos % (Auto) 0.1 L Baso % (Auto) 0.2 Neut # (Auto) 59842 H Lymph # (Auto) 700 L [place] # (Auto) 500 Eos # (Auto) 0 Baso # (Auto) 0 ABG pH 7.45 ABG pCO2 41.8 ABG pO2 74 L ABG HCO3 29 H ABG Total CO2 30 ABG O2 Saturation 95 ABG Base Excess 5.0 H FiO2 30 Sodium 137 Potassium 3.3 L Chloride 104 Carbon Dioxide 30 BUN 18 H Creatinine 0.55 Estimated GFR > 60 BUN/Creatinine Ratio 32.7 H Glucose 163 H Calcium 8.3 L Total Bilirubin 0.6 AST 28 ALT 24 Alkaline Phosphatase 60 Total Protein 6.2 L Albumin 3.5 Globulin 2.7 Albumin/Globulin Ratio 1.3 PFSH Social History household members: spouse Smoking Status: Current every day smoker Assessment & Plan Assessment & Plan narrative: 1. Laryngeal edema secondary to presumed thermal injury from smoking heroin At this time, patient remains intubated and mechanically ventilated for airway protection. She remains on steroids for reducing edema. Appreciate management per tele transportation engineer. Per the anesthesiologist report, patient had an area of eschar by the vocal folds, and had received history from the patient or family that she had accidentally inhaled and ember of heroin when she was smoking. It was felt the findings on exam were consistent with thermal injury. 2. Acute hypoxic respiratory failure Secondary to laryngeal edema. Continue airway protection with intubation and mechanical ventilation. Continue sedation with propofol/fentanyl/Versed as needed 3. Hypotension Now resolved. She is normotensive currently. 4. Polysubstance dependence Patient reportedly uses heroin, methamphetamine, and has tobacco dependence. She is overall better so sedated today. Continue close monitoring for safety. 5. Lung nodules Chest CT on admission revealed a 1.1 cm lobulated nodular density in the left lower lobe, a 0.7 cm irregular nodule in the left lower lobe, a 0.4 cm nodule in the left lower lobe, and a 0.2 cm nodule in the left upper lobe. Recommendations were for a PET-CT scan or short-term follow-up CT in 3 months. Code status Full Prophylaxis Continue heparin. Disposition Intensive care unit Time Spent With Patient Critical Care time: I spent a total of [] minutes of critical care time on this patient's care today; this time is exclusive of procedural time.
--- NOTE | 2022-04-26 14:44 | CM.DPNOTE ---
Discharge Planning Note: Patient intubated and sedated and in restraints per nurse. Unable to communicate with patient today. Nevin Bermudez RN/DCP
--- NOTE | 2022-04-26 20:06 | PM.ICURNDS ---
- Date Patient Seen: 04/26/22 Time Patient Seen: 20:07 :: This patient was seen via real time interactive two-way audiovisual telecommunication. Note: No acute issues today. Started lasix 40 mg IV once. Sedated w/ versed 4 mg/hr, propofol 30 mcg, and fentanyl 1 mcg/kg/hr. Will titrate for RASS goal 0. DC protonix. Will check SAT and SBT tomorrow. D/w RN at bedside.
[2022-04-26 21:17] LABS: BUN Creatinine Ratio 38.1 (6-22); Blood Urea Nitrogen 24 mg/dL (7-17); Calcium 8.2 mg/dL (8.4-10.2); Carbon Dioxide 28 mmol/L (22-32); Chloride 105 mmol/L (98-107); Estimated Glomerular Filt Rate > 60 mL/min (>60); Glucose 136 mg/dL (70-100); HEMOLYSIS < 15 (0-50); Potassium 3.6 mmol/L (3.4-5.1); Sodium 137 mmol/L (137-145)
[2022-04-26] MEDS: MIDAZOLAM 50 MG in DEXTROSE 5% IN WATER 240 ML 25 MG IV (21:28)
[2022-04-26] MEDS: propofoL 1,000 MG/100 ML VIAL 24.494 MG IV (22:27)
[2022-04-27] VITALS (66 sets, daily range): BP systolic 103–142; BP diastolic 65–88; PULSE 58–80; RESP 15–41; TEMP 35.7–36.8; O2SAT 91–100
[2022-04-27] MEDS: DEXAMETHASONE 4 MG/ML VIAL IV ×4 (01:00→18:34)
[2022-04-27] MEDS: propofoL 1,000 MG/100 ML VIAL 19.595 MG IV ×3 (02:51→17:22)
[2022-04-27] MEDS: AMPICILLIN/SULBACTAM 3 GM 3 GM in SODIUM CHLORIDE 0.9% 100 ML IV ×4 (03:52→23:28)
[2022-04-27 05:37] LABS: Add Manual Diff / Slide Review NO; Basophils Absolute Auto 0 /uL (0-100); Basophils Percent Auto 0.3 % (0-2); Eosinophils Absolute Auto 0 /uL (0-450); Hematocrit 42.3 % (36-46); Hemoglobin 14.7 g/dL (12.0-16.0); Lymphocytes Absolute Auto 700 /uL (1100-4500); Lymphocytes Percent Auto 6.6 % (25-40); Mean Corpuscular HGB Conc 34.7 % (30-36); Mean Corpuscular Hemoglobin 31.1 PG (26-34); Mean Corpuscular Volume 89.7 fL (80-100); Monocytes Absolute Auto 500 /uL (0-900); Monocytes Percent Auto 4.4 % (3-14); Neutrophils Absolute Auto 9500 /uL (1500-7000); Neutrophils Percent Auto 88.7 % (50-75); Platelet Count 157 X10^3/uL (150-400); Red Blood Cell Count 4.71 X10^6/uL (4.0-5.2); Red Cell Distribution Width 13.1 % (11.6-14.8); White Blood Cell Count 10.8 X10^3/uL (4.5-11.0)
[2022-04-27] MEDS: CHLORHEXIDINE GLUCONATE 15 ML CUP PO ×4 (05:45→23:30)
[2022-04-27 05:50] LABS: Alanine Aminotransferase 24 IU/L (<35); Albumin 3.7 g/dL (3.5-5.0); Albumin Globulin Ratio 1.3 (1.0-2.8); Alkaline Phosphatase 61 U/L (38-126); Aspartate Aminotransferase 26 IU/L (14-36); BUN Creatinine Ratio 38.3 (6-22); Bilirubin Total 0.3 mg/dL (0.2-1.3); Blood Urea Nitrogen 23 mg/dL (7-17); Calcium 8.1 mg/dL (8.4-10.2); Carbon Dioxide 30 mmol/L (22-32); Chloride 103 mmol/L (98-107); Estimated Glomerular Filt Rate > 60 mL/min (>60); Globulin 2.9 g/dL (1.7-4.1); Glucose 148 mg/dL (70-100); HEMOLYSIS 19 (0-50); Potassium 3.3 mmol/L (3.4-5.1); Sodium 137 mmol/L (137-145); Total Protein 6.6 g/dL (6.3-8.2)
--- NOTE | 2022-04-27 07:25 | P.PN_ITS ---
Subjective Subjective Date Patient Seen: 04/27/22 Interval history: 56-year-old female with active heroin dependence and tobacco dependence who is presently hospital day 2 admitted with laryngeal edema felt to be secondary to thermal injury from smoking heroin (anesthesia reported patient having history of a inhaling a heroin ember and her having evidence of eschar at the time of intubation).? She remains intubated and mechanically ventilated.? She is presently receiving sedation with propofol, fentanyl, and Versed.? Overnight that drips were titrated some due to agitation, but this morning, RN has been decreasing sedation. Per RT, patient does have an increased air leak today. She is less swollen. At the time my evaluation she is fairly sedated and is not interactive. Exam Vital Signs (past 8 hours): - 04/26/22 23:30 04/27/22 00:15 04/26/22 23:30 Pulse Rate 69 Respiratory Rate 16 Blood Pressure 122/68 Pulse Oximetry 98 96 Oxygen Delivery Method Mechanical Ventilation Oxygen Flow Rate Fraction of Inspired Oxygen 04/27/22 00:00 04/27/22 00:00 04/27/22 00:00 Pulse Rate 67 Respiratory Rate 21 Blood Pressure 119/73 Pulse Oximetry 97 Oxygen Delivery Method Mechanical Ventilation Oxygen Flow Rate Fraction of Inspired Oxygen 04/27/22 01:00 04/27/22 02:00 04/27/22 03:00 Pulse Rate 64 60 58 L Respiratory Rate 16 16 16 Blood Pressure 117/71 113/78 110/76 Pulse Oximetry 96 95 96 Oxygen Delivery Method Oxygen Flow Rate 0 Fraction of Inspired Oxygen 04/27/22 00:30 04/27/22 00:30 04/27/22 01:00 Pulse Rate 66 Respiratory Rate 18 Blood Pressure 124/80 117/71 Pulse Oximetry 97 Oxygen Delivery Method Oxygen Flow Rate Fraction of Inspired Oxygen 04/27/22 01:00 04/27/22 01:30 04/27/22 01:30 Pulse Rate 64 63 Respiratory Rate 16 16 Blood Pressure 116/75 Pulse Oximetry 96 94 Oxygen Delivery Method Oxygen Flow Rate Fraction of Inspired Oxygen 04/27/22 02:00 04/27/22 02:00 04/27/22 02:30 Pulse Rate 60 Respiratory Rate 16 Blood Pressure 113/78 112/78 Pulse Oximetry 95 Oxygen Delivery Method Oxygen Flow Rate Fraction of Inspired Oxygen 04/27/22 02:30 04/27/22 03:00 04/27/22 03:00 Pulse Rate 59 L 58 L Respiratory Rate 16 16 Blood Pressure 110/76 Pulse Oximetry 96 96 Oxygen Delivery Method Oxygen Flow Rate Fraction of Inspired Oxygen 04/27/22 04:00 04/27/22 04:00 04/27/22 03:30 Pulse Rate 65 Respiratory Rate 20 Blood Pressure 116/65 118/81 Pulse Oximetry 99 Oxygen Delivery Method Mechanical Ventilation Oxygen Flow Rate Fraction of Inspired Oxygen 30 04/27/22 03:30 04/27/22 04:00 04/27/22 04:00 Pulse Rate 64 65 Respiratory Rate 16 20 Blood Pressure 116/65 Pulse Oximetry 98 99 Oxygen Delivery Method Oxygen Flow Rate Fraction of Inspired Oxygen 04/27/22 05:00 04/27/22 04:30 04/27/22 05:00 Pulse Rate 63 73 66 Respiratory Rate 16 17 16 Blood Pressure 135/84 Pulse Oximetry 99 99 99 Oxygen Delivery Method Oxygen Flow Rate Fraction of Inspired Oxygen 30 04/27/22 05:02 04/27/22 05:02 04/27/22 05:30 Pulse Rate 66 80 Respiratory Rate 16 26 H Blood Pressure 135/84 Pulse Oximetry 99 95 Oxygen Delivery Method Oxygen Flow Rate Fraction of Inspired Oxygen 04/27/22 06:00 04/27/22 06:30 04/27/22 06:00 Pulse Rate 74 75 75 Respiratory Rate 23 17 17 Blood Pressure 135/79 Pulse Oximetry 95 95 95 Oxygen Delivery Method Oxygen Flow Rate Fraction of Inspired Oxygen 04/27/22 06:32 04/27/22 06:32 04/27/22 07:00 Pulse Rate 72 Respiratory Rate 17 Blood Pressure 135/79 119/74 Pulse Oximetry 95 Oxygen Delivery Method Oxygen Flow Rate Fraction of Inspired Oxygen 04/27/22 07:00 Pulse Rate 62 Respiratory Rate 16 Blood Pressure Pulse Oximetry 97 Oxygen Delivery Method Oxygen Flow Rate Fraction of Inspired Oxygen Fraction of Inspired Oxygen 30 Oxygen Delivery Method Mechanical Ventilation Oxygen Flow Rate 0 Narrative Exam Narrative: GEN:? Intubated/sedated middle-aged female,NAD HEENT:NC, Face symmetric, minimal lip swelling noted, tongue appears to be near normal p CHEST: Respiratory excursions symmetric, CTAB CV: RRR, no M/R/G ABD: Soft, NT/ND, BT present in all 4 quadrants, no organomegaly or masses EXTR: warm, well perfused, no C/C/E SKIN: warm and dry, no rash NEURO:? Intubated, sedated, nonfocal Objective Labs Result Diagrams: 04/27/22 05:10 04/27/22 13:20 Labs: Laboratory Results - last 24 hr 04/26/22 04/26/22 04/27/22 07:17 20:55 05:10 WBC 10.8 RBC 4.71 Hgb 14.7 Hct 42.3 MCV 89.7 MCH 31.1 MCHC 34.7 RDW 13.1 Plt Count 157 Neut % (Auto) 88.7 H Lymph % (Auto) 6.6 L [place] % (Auto) 4.4 Eos % (Auto) 0.0 L Baso % (Auto) 0.3 Neut # (Auto) 9500 H Lymph # (Auto) 700 L [place] # (Auto) 500 Eos # (Auto) 0 Baso # (Auto) 0 ABG pH 7.45 ABG pCO2 41.8 ABG pO2 74 L ABG HCO3 29 H ABG Total CO2 30 ABG O2 Saturation 95 ABG Base Excess 5.0 H FiO2 30 Sodium 137 Potassium 3.6 Chloride 105 Carbon Dioxide 28 BUN 24 H Creatinine 0.63 Estimated GFR > 60 BUN/Creatinine Ratio 38.1 H Glucose 136 H Calcium 8.2 L Total Bilirubin AST ALT Alkaline Phosphatase Total Protein Albumin Globulin Albumin/Globulin Ratio 04/27/22 05:10 WBC RBC Hgb Hct MCV MCH MCHC RDW Plt Count Neut % (Auto) Lymph % (Auto) [place] % (Auto) Eos % (Auto) Baso % (Auto) Neut # (Auto) Lymph # (Auto) [place] # (Auto) Eos # (Auto) Baso # (Auto) ABG pH ABG pCO2 ABG pO2 ABG HCO3 ABG Total CO2 ABG O2 Saturation ABG Base Excess FiO2 Sodium 137 Potassium 3.3 L Chloride 103 Carbon Dioxide 30 BUN 23 H Creatinine 0.60 Estimated GFR > 60 BUN/Creatinine Ratio 38.3 H Glucose 148 H Calcium 8.1 L Total Bilirubin 0.3 AST 26 ALT 24 Alkaline Phosphatase 61 Total Protein 6.6 Albumin 3.7 Globulin 2.9 Albumin/Globulin Ratio 1.3 PFSH Social History household members: spouse Smoking Status: Current every day smoker Assessment & Plan Assessment & Plan narrative: 1. Laryngeal edema secondary to presumed thermal injury from smoking heroin At this time, patient remains intubated and mechanically ventilated for airway protection.? She remains on steroids for reducing edema.? Appreciate management per tele perioperative manager.? Per the anesthesiologist report, patient had an area of eschar by the vocal folds, and had received history from the patient or family that she had accidentally inhaled and ember of heroin when she was smoking.? It was felt the findings on exam were consistent with thermal injury. Will plan a follow-up soft tissue neck CT tomorrow to reassess. It is possible she will be able to successfully extubate tomorrow as RT notes she has a near normal air leak at this time. 2. Acute hypoxic respiratory failure Secondary to laryngeal edema.? Continue airway protection with intubation and mechanical ventilation.? Continue sedation with propofol/fentanyl/Versed as needed 3. Hypotension Now resolved.? She is normotensive currently. 4. Volume overload Was placed on furosemide for diuresis yesterday. Unfortunately she continues to get large volumes of fluid secondary to her sedation. Despite adding furosemide yesterday, she remains 900 cc volume positive. However she is more aggressively diuresing this morning and has already put out 1200 cc by 915. Continue diuresis. 5. Hypokalemia Will continue to replete. Will recheck potassium level at 1:00 p.m. today given her aggressive diuresis this morning. 6. Polysubstance dependence Patient reportedly uses heroin, methamphetamine, and has tobacco dependence.? She is overall better so sedated today.? Continue close monitoring for safety. 7. Lung nodules Chest CT on admission revealed a 1.1 cm lobulated nodular density in the left lower lobe, a 0.7 cm irregular nodule in the left lower lobe, a 0.4 cm nodule in the left lower lobe, and a 0.2 cm nodule in the left upper lobe.? Recommendat ions were for a PET-CT scan or short-term follow-up CT in 3 months. Code status Full Prophylaxis Continue heparin. Disposition Intensive care unit Time Spent With Patient Critical Care time: I spent a total of [] minutes of critical care time on this patient's care today; this time is exclusive of procedural time.
[2022-04-27 08:04] LABS: Fractionated Inspired Oxygen 30; HCO3 ABG 29 mmol/L (22-26); Oxygen Saturation ABG 93 % (95-100); PO2 ABG 58 mmHg (80-100); TCO2 ABG 30 mmol/L (21-31); pH ABG 7.52 (7.35-7.45)
[2022-04-27] MEDS: MIDAZOLAM 50 MG in DEXTROSE 5% IN WATER 240 ML 25 MG IV ×2 (08:10→19:55)
[2022-04-27] MEDS: HEPARIN 5,000 UNIT/ML VIAL 5000 UNIT SUBCUT ×2 (08:10→21:34)
[2022-04-27] MEDS: FUROSEMIDE 20 MG/2 ML VIAL IV ×2 (08:11→21:34)
[2022-04-27] MEDS: FAMOTIDINE 20 MG/2 ML VIAL IV ×2 (08:11→21:34)
[2022-04-27] MEDS: POTASSIUM CHLORIDE 20 MEQ/15 ML UDC TUBE ×2 (08:11→21:33)
[2022-04-27] MEDS: fentaNYL 1,000 MCG in DEXTROSE 5% IN WATER 230 ML 40.824 MCG IV ×2 (09:50→18:27)
[2022-04-27] MEDS: SENNOSIDES 8.6 MG TABLET TUBE ×2 (10:01→21:33)
[2022-04-27] MEDS: SODIUM CHLORIDE 0.9% 250 ML 21 ML IV (11:59)
[2022-04-27 13:41] LABS: HEMOLYSIS < 15 (0-50)
[2022-04-27] MEDS: POTASSIUM CHLORIDE 20 MEQ/15 ML UDC 40 MEQ TUBE (14:25)
--- NOTE | 2022-04-27 15:54 | P.TELICUPN_ITS ---
Subjective Subjective If camera was activated, add TeleICU A-V statement: patient seen via two way AV system. Sedated and intubated. Improvement in the tongue and lips swelling as well as airway swelling evident by good leak today per respiratory. 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 Current Medications Current Medications Medications: Home Medications gabapentin 100 mg capsule 300 mg ##0 08/24/16 [History] hydromorphone 4 mg tablet (Dilaudid) ##0 08/24/16 [History] hydromorphone 4 mg tablet (Dilaudid) 4 mg PO QIDP PRN #10 tabs 08/24/16 [Rx] methadone 10 mg tablet 20 mg PO BID ##0 08/24/16 [History] cephalexin 500 mg capsule (Keflex) 500 mg PO QID #10 caps 08/27/16 [Rx] hydrocodone 5 mg-acetaminophen 325 mg tablet ([facility]) 1 tab PO Q6HP PRN #6 tabs 08/27/16 [Rx] hydrocodone 7.5 mg-acetaminophen 325 mg tablet ([facility]) 1 tab PO Q6HP PRN #14 tabs 10/06/16 [Rx] sulfamethoxazole 800 mg-trimethoprim 160 mg tablet 1 tab PO BID #14 tabs 10/06/16 [Rx] Visit Medications (administered) Generic Name Dose Route Start Last Admin Trade Name Freq PRN Reason Stop Dose Admin Chlorhexidine Gluconate 15 ml 04/25/22 00:00 04/27/22 11:59 Chlorhexidine Gluconate 15 Ml Cup PO 15 ml Q6HR AV Administration Dexamethasone 4 mg 04/25/22 01:00 04/27/22 12:45 Dexamethasone 4 Mg/Ml Vial IV 4 mg Q6H AV Administration Famotidine 20 mg 04/26/22 10:15 04/27/22 08:11 Famotidine 20 Mg/2 Ml Vial IV 20 mg BID AV Administration Furosemide 20 mg 04/26/22 09:45 04/27/22 08:11 Furosemide 20 Mg/2 Ml Vial IV 20 mg BID AV Administration Heparin Sodium (Porcine) 5,000 unit 04/25/22 09:00 04/27/22 08:10 Heparin 5,000 Unit/Ml Vial SUBCUT 5,000 unit BID AV Administration Propofol 1,000 mg in 100 mls @ 2.449 mls/hr 04/24/22 20:00 04/27/22 12:42 Propofol IV 40 mcg/kg/min TITRATE AV 19.595 mls/hr Administration Protocol 5 MCG/KG/MIN Fentanyl 1,000 mcg/ Dextrose 250 mls @ 14.288 mls/hr 04/24/22 21:30 04/27/22 14:22 IV 1 mcg/kg/hr TITRATE AV 20.412 mls/hr Titration Protocol 0.7 MCG/KG/HR Ampicillin Sodium/Sulbactam 100 mls @ 100 mls/hr 04/24/22 22:00 04/27/22 15:37 Sodium 3 gm/ Sodium Chloride IV 100 mls/hr Q6H AV Administration Midazolam HCl 50 mg/ Dextrose 250 mls @ 25 mls/hr 04/25/22 19:45 04/27/22 15:30 IV 4 mg/hr TITRATE AV 20 mls/hr Infusion Protocol 5 MG/HR Sodium Chloride 250 mls @ 21 mls/hr 04/27/22 11:24 04/27/22 11:59 Normal Saline 0.9% IV 21 mls/hr Q24H PRN Administration Flush Midazolam HCl 2 mg 04/25/22 11:25 04/25/22 17:57 Midazolam 2 Mg/2 Ml Vial IV 2 mg Q3HR PRN Administration Agitation Potassium Chloride 20 meq 04/27/22 09:00 04/27/22 14:25 Potassium Chloride 20 Meq/15 Ml Udc TUBE Not Given TID AV Sennosides 8.6 mg 04/27/22 09:45 04/27/22 10:01 Sennosides 8.6 Mg Tablet TUBE 8.6 mg BID AV Administration Objective Ventilator Parameters: Ventilator Settings FiO2 30 RT Vent Frequency 16 Ventilator Tidal Volume 360 Exhaled Vt/kg IBW 8 Positive End Expiratory 5 Pressure Inspiratory Phase Time 0.9 I:E Ratio 1:3.2 Patient Position HOB >= 30 degrees Labs Result Diagrams: 04/27/22 05:10 04/27/22 13:20 Labs: Laboratory Results - last 24 hr 04/26/22 04/27/22 04/27/22 20:55 05:10 05:10 WBC 10.8 RBC 4.71 Hgb 14.7 Hct 42.3 MCV 89.7 MCH 31.1 MCHC 34.7 RDW 13.1 Plt Count 157 Neut % (Auto) 88.7 H Lymph % (Auto) 6.6 L [place] % (Auto) 4.4 Eos % (Auto) 0.0 L Baso % (Auto) 0.3 Neut # (Auto) 9500 H Lymph # (Auto) 700 L [place] # (Auto) 500 Eos # (Auto) 0 Baso # (Auto) 0 ABG pH ABG pCO2 ABG pO2 ABG HCO3 ABG Total CO2 ABG O2 Saturation ABG Base Excess FiO2 Sodium 137 137 Potassium 3.6 3.3 L Chloride 105 103 Carbon Dioxide 28 30 BUN 24 H 23 H Creatinine 0.63 0.60 Estimated GFR > 60 > 60 BUN/Creatinine Ratio 38.1 H 38.3 H Glucose 136 H 148 H Calcium 8.2 L 8.1 L Total Bilirubin 0.3 AST 26 ALT 24 Alkaline Phosphatase 61 Total Protein 6.6 Albumin 3.7 Globulin 2.9 Albumin/Globulin Ratio 1.3 04/27/22 04/27/22 07:30 13:20 WBC RBC Hgb Hct MCV MCH MCHC RDW Plt Count Neut % (Auto) Lymph % (Auto) [place] % (Auto) Eos % (Auto) Baso % (Auto) Neut # (Auto) Lymph # (Auto) [place] # (Auto) Eos # (Auto) Baso # (Auto) ABG pH 7.52 H ABG pCO2 36.0 ABG pO2 58 L ABG HCO3 29 H ABG Total CO2 30 ABG O2 Saturation 93 L ABG Base Excess 6.0 H FiO2 30 Sodium Potassium 3.0 L Chloride Carbon Dioxide BUN Creatinine Estimated GFR BUN/Creatinine Ratio Glucose Calcium Total Bilirubin AST ALT Alkaline Phosphatase Total Protein Albumin Globulin Albumin/Globulin Ratio Exam Vital Signs (past 8 hours): - 04/27/22 08:00 04/27/22 08:00 04/27/22 08:00 Temperature 97.5 F L Pulse Rate 60 Respiratory Rate 16 Blood Pressure 136/73 136/73 Pulse Oximetry 97 Oxygen Delivery Method Mechanical Ventilation Fraction of Inspired Oxygen 04/27/22 08:00 04/27/22 08:30 04/27/22 09:00 Temperature Pulse Rate 60 60 71 Respiratory Rate 16 16 19 Blood Pressure Pulse Oximetry 97 97 97 Oxygen Delivery Method Fraction of Inspired Oxygen 04/27/22 09:02 04/27/22 09:02 04/27/22 09:30 Temperature Pulse Rate 73 73 Respiratory Rate 27 H 22 Blood Pressure 131/85 Pulse Oximetry 96 99 Oxygen Delivery Method Fraction of Inspired Oxygen 04/27/22 10:00 04/27/22 10:00 04/27/22 10:30 Temperature Pulse Rate 67 63 Respiratory Rate 18 16 Blood Pressure 128/79 Pulse Oximetry 94 93 Oxygen Delivery Method Fraction of Inspired Oxygen 04/27/22 11:00 04/27/22 11:00 04/27/22 12:00 Temperature 98.3 F Pulse Rate 59 L 64 Respiratory Rate 16 16 Blood Pressure 115/72 141/88 H Pulse Oximetry 94 98 Oxygen Delivery Method Fraction of Inspired Oxygen 04/27/22 12:00 04/27/22 11:30 04/27/22 12:00 Temperature Pulse Rate 61 Respiratory Rate 16 Blood Pressure 141/88 H Pulse Oximetry 98 Oxygen Delivery Method Mechanical Ventilation Fraction of Inspired Oxygen 04/27/22 12:00 04/27/22 12:30 04/27/22 13:00 Temperature Pulse Rate 64 74 65 Respiratory Rate 16 26 H 20 Blood Pressure Pulse Oximetry 98 99 97 Oxygen Delivery Method Fraction of Inspired Oxygen 04/27/22 13:01 04/27/22 13:01 04/27/22 13:30 Temperature Pulse Rate 65 63 Respiratory Rate 18 17 Blood Pressure 107/70 Pulse Oximetry 98 95 Oxygen Delivery Method Fraction of Inspired Oxygen 04/27/22 14:00 04/27/22 14:00 04/27/22 14:00 Temperature Pulse Rate 60 60 Respiratory Rate 16 16 Blood Pressure 109/68 109/68 Pulse Oximetry 96 96 Oxygen Delivery Method Fraction of Inspired Oxygen 04/27/22 12:10 04/27/22 15:00 04/27/22 14:30 Temperature Pulse Rate 65 60 Respiratory Rate 18 16 Blood Pressure 116/75 Pulse Oximetry 97 95 94 Oxygen Delivery Method Mechanical Ventilation Fraction of Inspired Oxygen 30 04/27/22 15:00 04/27/22 15:00 Temperature Pulse Rate 65 Respiratory Rate 18 Blood Pressure 116/75 Pulse Oximetry 95 Oxygen Delivery Method Fraction of Inspired Oxygen Fraction of Inspired Oxygen 30 Oxygen Delivery Method Mechanical Ventilation Oxygen Flow Rate 0 Assessment & Plan Assessment & Plan narrative: Assessment and plan (1) Acute respiratory failure: ?Status:?Acute (2) Edema of larynx: ?Status:?Acute (3) Stridor: ?Status:?Acute Assessment & Plan narrative: NEURO: -- On propofol & versed infusions -- On fentanyl for pain control -- versed pushes prn -- RASS goal -1 to 0 -- Seek early mobility -- Daily CAM ICU RESP: -- VC 16/430/30%/5 -- resp failure due to laryngeal edema -- Meeting goals of oxygenation and ventilation -- HOB elevation -- Aspiration precaution -- Daily SAT and SBT -- Daily cuff leak assessment -- Continue unasyn -- f/u resp cx -- Daily cuff leak assessment? -- May repeat Ct for air way improvement eval in am -- Likely extubation in Am -- continue dexamethasone CVS: # Hypotension, resolved -- MAP goal > 65 ENDO: -- Goal BS < 180 RENAL -- continue IV lasix 40 mg bid, goal euvolemia -- trend bmp -- monitor UO -- FWF to 200 mg Q4H D/w RN and RT at bedside. CCT 30 min Time Spent With Patient Critical Care time: I spent a total of [] minutes of critical care time on this patient's care today; this time is exclusive of procedural time. Time Spent With Patient Critical Care time: I spent a total of [30] minutes of critical care time on this patient's care today; this time is exclusive of procedural time. Time Spent With Patient Critical Care time: I spent a total of [30] minutes of critical care time on this patient's care today; this time is exclusive of procedural time.
--- NOTE | 2022-04-27 19:45 | PM.ICURNDS ---
- :: This patient was seen via real time interactive two-way audiovisual telecommunication. Note: Positive cuff. Failed SAT. On propofol, versed, and fentanyl. On PEEP 5 and FiO2 35%. Plan for repeat CT neck tomorrow to assess laryngeal edema. Cont current sedation to titrate for RASS goal -1 to 0. D/w RN at bedside.
[2022-04-27] MEDS: BISACODYL 10 MG SUPP PR (21:09)
[2022-04-27 21:17] LABS: HEMOLYSIS 33 (0-50); Potassium 3.6 mmol/L (3.4-5.1)
[2022-04-27] MEDS: propofoL 1,000 MG/100 ML VIAL 22.045 MG IV (23:26)
[2022-04-28] VITALS (65 sets, daily range): BP systolic 91–150; BP diastolic 57–91; PULSE 52–83; RESP 12–33; TEMP 36.5–37.2; O2SAT 86–100
[2022-04-28] MEDS: DEXAMETHASONE 4 MG/ML VIAL IV ×4 (01:17→19:27)
[2022-04-28] MEDS: SODIUM CHLORIDE 0.9% 250 ML 21 ML IV (01:20)
[2022-04-28] MEDS: fentaNYL 1,000 MCG in DEXTROSE 5% IN WATER 230 ML 40.824 MCG IV ×2 (02:37→07:53)
[2022-04-28] MEDS: propofoL 1,000 MG/100 ML VIAL 12.247 MG IV (03:48)
[2022-04-28] MEDS: AMPICILLIN/SULBACTAM 3 GM 3 GM in SODIUM CHLORIDE 0.9% 100 ML IV ×4 (03:51→22:19)
[2022-04-28 05:09] LABS: Add Manual Diff / Slide Review NO; Basophils Absolute Auto 0 /uL (0-100); Basophils Percent Auto 0.3 % (0-2); Eosinophils Absolute Auto 0 /uL (0-450); Eosinophils Percent Auto 0.3 % (2-4); Hematocrit 42.9 % (36-46); Hemoglobin 14.8 g/dL (12.0-16.0); Lymphocytes Absolute Auto 800 /uL (1100-4500); Lymphocytes Percent Auto 8.1 % (25-40); Mean Corpuscular HGB Conc 34.5 % (30-36); Mean Corpuscular Hemoglobin 30.8 PG (26-34); Mean Corpuscular Volume 89.3 fL (80-100); Monocytes Absolute Auto 400 /uL (0-900); Monocytes Percent Auto 4.3 % (3-14); Neutrophils Absolute Auto 8400 /uL (1500-7000); Platelet Count 165 X10^3/uL (150-400); Red Blood Cell Count 4.81 X10^6/uL (4.0-5.2); Red Cell Distribution Width 13.1 % (11.6-14.8); White Blood Cell Count 9.7 X10^3/uL (4.5-11.0)
[2022-04-28 05:19] LABS: Alanine Aminotransferase 25 IU/L (<35); Albumin 3.7 g/dL (3.5-5.0); Albumin Globulin Ratio 1.2 (1.0-2.8); Alkaline Phosphatase 57 U/L (38-126); Aspartate Aminotransferase 26 IU/L (14-36); BUN Creatinine Ratio 43.3 (6-22); Bilirubin Total 0.4 mg/dL (0.2-1.3); Blood Urea Nitrogen 26 mg/dL (7-17); Calcium 8.4 mg/dL (8.4-10.2); Carbon Dioxide 30 mmol/L (22-32); Chloride 101 mmol/L (98-107); Estimated Glomerular Filt Rate > 60 mL/min (>60); Glucose 152 mg/dL (70-100); HEMOLYSIS 19 (0-50); Potassium 3.6 mmol/L (3.4-5.1); Sodium 137 mmol/L (137-145); Total Protein 6.7 g/dL (6.3-8.2)
--- NOTE | 2022-04-28 06:00 | DI.CT.S_ITS ---
PROCEDURE: CT SOFT TISSUE NECK W CON INDICATIONS: Reassess laryngeal edema and airway closure TECHNIQUE: After the administration of intravenous contrast, 3.0 mm axial sections acquired from the sella to the aortic arch. Additional oblique axial 3.0 mm sections acquired through the pharynx. 3 mm thick coronal and sagittal reformats were generated. For radiation dose reduction, the following was used: automated exposure control. COMPARISON: [facility], CT, CT SOFT TISSUE NECK W CON, 04/24/2022, 18:05. FINDINGS: Image quality: Excellent. Lymph nodes: No enlarged lymph nodes seen throughout the neck. Vessels: Visualized vasculature appears patent. Neck spaces: On the prior examination, there is profound supraglottic edema seen, with prominent narrowing of the airway. On the current study, this patient is intubated, which limits evaluation of this area of the airway. However, it is believed that the overall degree of soft tissue edema is decreased. Glands: The parotid and submandibular glands appear normal. Thyroid gland demonstrates no significant abnormality. Miscellaneous: Visualized brain and orbits appear normal. Lung apices appear clear. Superficial soft tissues appear normal. An orogastric tube is partially seen. Bones: No suspicious bony lesions. Visualized sinuses and mastoids appear unremarkable. Extensive cervical spine postoperative hardware is seen both anteriorly and posteriorly. IMPRESSION: The degree of supraglottic edema seen on the prior examination is believed to have reduced since the prior study. However, the presence of the endotracheal tube limits evaluation. Incidental note is made of: Orogastric tube Extensive cervical spine postoperative hardware Dictated by: Javier Wei M.D. on 04/28/2022 at 10:07 Approved by: Javier Wei M.D. on 04/28/2022 at 10:10
[2022-04-28] MEDS: CHLORHEXIDINE GLUCONATE 15 ML CUP PO ×3 (06:48→16:50)
--- NOTE | 2022-04-28 07:03 | PC.NURSE ---
End of shift note. Care of patient from [id number]. Patient sedated with propofol 40mcg/kg/min, Versed 5mg and Fentanly 2mcg/kg/hr with RASS -2 to -3. 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 Has been SR 60s. Good urine out put via BU Gomez catheter. Plan is to have a CT this am.
--- NOTE | 2022-04-28 07:49 | P.PN_ITS ---
Subjective Subjective Date Patient Seen: 04/27/22 Interval history: Per RT, patient does have an increased air leak today. She is less swollen. At the time my evaluation she is fairly sedated and is not interactive. Exam Vital Signs (past 8 hours): - 04/28/22 00:00 04/28/22 00:00 04/28/22 00:01 Temperature Pulse Rate 62 Respiratory Rate 18 Blood Pressure 106/71 Pulse Oximetry 98 Oxygen Delivery Method Mechanical Ventilation Fraction of Inspired Oxygen 04/28/22 00:01 04/28/22 00:30 04/28/22 01:00 Temperature Pulse Rate 61 59 L 57 L Respiratory Rate 18 17 21 Blood Pressure Pulse Oximetry 99 98 99 Oxygen Delivery Method Fraction of Inspired Oxygen 04/28/22 01:09 04/28/22 01:09 04/28/22 01:30 Temperature Pulse Rate 64 62 Respiratory Rate 21 17 Blood Pressure 101/64 Pulse Oximetry 98 97 Oxygen Delivery Method Fraction of Inspired Oxygen 04/28/22 02:00 04/28/22 02:00 04/28/22 02:00 Temperature Pulse Rate 57 L 58 L Respiratory Rate 16 16 Blood Pressure 102/68 Pulse Oximetry 99 99 Oxygen Delivery Method Fraction of Inspired Oxygen 30 04/28/22 02:30 04/28/22 03:00 04/28/22 03:30 Temperature Pulse Rate 57 L 58 L 58 L Respiratory Rate 16 17 16 Blood Pressure Pulse Oximetry 99 100 100 Oxygen Delivery Method Fraction of Inspired Oxygen 04/28/22 03:40 04/28/22 03:40 04/28/22 03:45 Temperature 97.7 F Pulse Rate 63 Respiratory Rate 22 Blood Pressure 118/66 Pulse Oximetry 99 Oxygen Delivery Method Fraction of Inspired Oxygen 04/28/22 04:00 04/28/22 04:00 04/28/22 04:00 Temperature Pulse Rate 56 L Respiratory Rate 17 Blood Pressure 120/79 Pulse Oximetry 100 Oxygen Delivery Method Mechanical Ventilation Fraction of Inspired Oxygen 04/28/22 04:30 04/28/22 05:00 04/28/22 05:01 Temperature Pulse Rate 60 74 73 Respiratory Rate 18 29 H 30 H Blood Pressure Pulse Oximetry 100 97 98 Oxygen Delivery Method Fraction of Inspired Oxygen 04/28/22 05:01 04/28/22 05:30 04/28/22 06:00 Temperature Pulse Rate 74 Respiratory Rate 29 H Blood Pressure 142/77 H 122/80 Pulse Oximetry 97 Oxygen Delivery Method Fraction of Inspired Oxygen 04/28/22 06:00 04/28/22 06:00 Temperature Pulse Rate 68 67 Respiratory Rate 21 12 Blood Pressure Pulse Oximetry 97 Oxygen Delivery Method Fraction of Inspired Oxygen Fraction of Inspired Oxygen 30 Oxygen Delivery Method Mechanical Ventilation Oxygen Flow Rate 0 Narrative Exam Narrative: GEN:? Intubated/sedated middle-aged female,NAD HEENT:NC, Face symmetric, minimal lip swelling noted, tongue appears to be near normal p CHEST: Respiratory excursions symmetric, CTAB CV: RRR, no M/R/G ABD: Soft, NT/ND, BT present in all 4 quadrants, no organomegaly or masses EXTR: warm, well perfused, no C/C/E SKIN: warm and dry, no rash NEURO:? Intubated, sedated, nonfocal Objective Labs Result Diagrams: 04/28/22 05:00 04/28/22 05:00 Labs: Laboratory Results - last 24 hr 04/27/22 04/27/22 04/27/22 07:30 13:20 20:19 WBC RBC Hgb Hct MCV MCH MCHC RDW Plt Count Neut % (Auto) Lymph % (Auto) [place] % (Auto) Eos % (Auto) Baso % (Auto) Neut # (Auto) Lymph # (Auto) [place] # (Auto) Eos # (Auto) Baso # (Auto) ABG pH 7.52 H ABG pCO2 36.0 ABG pO2 58 L ABG HCO3 29 H ABG Total CO2 30 ABG O2 Saturation 93 L ABG Base Excess 6.0 H FiO2 30 Sodium Potassium 3.0 L 3.6 Chloride Carbon Dioxide BUN Creatinine Estimated GFR BUN/Creatinine Ratio Glucose Calcium Total Bilirubin AST ALT Alkaline Phosphatase Total Protein Albumin Globulin Albumin/Globulin Ratio 04/28/22 04/28/22 05:00 05:00 WBC 9.7 RBC 4.81 Hgb 14.8 Hct 42.9 MCV 89.3 MCH 30.8 MCHC 34.5 RDW 13.1 Plt Count 165 Neut % (Auto) 87.0 H Lymph % (Auto) 8.1 L [place] % (Auto) 4.3 Eos % (Auto) 0.3 L Baso % (Auto) 0.3 Neut # (Auto) 8400 H Lymph # (Auto) 800 L [place] # (Auto) 400 Eos # (Auto) 0 Baso # (Auto) 0 ABG pH ABG pCO2 ABG pO2 ABG HCO3 ABG Total CO2 ABG O2 Saturation ABG Base Excess FiO2 Sodium 137 Potassium 3.6 Chloride 101 Carbon Dioxide 30 BUN 26 H Creatinine 0.60 Estimated GFR > 60 BUN/Creatinine Ratio 43.3 H Glucose 152 H Calcium 8.4 Total Bilirubin 0.4 AST 26 ALT 25 Alkaline Phosphatase 57 Total Protein 6.7 Albumin 3.7 Globulin 3.0 Albumin/Globulin Ratio 1.2 [facility] Social History household members: spouse Smoking Status: Current every day smoker Assessment & Plan Assessment & Plan narrative: 56-year-old female with active heroin dependence and tobacco dependence who is presently hospital day 2 admitted with laryngeal edema felt to be secondary to thermal injury from smoking heroin (anesthesia reported patient having history of a inhaling a heroin ember and her having evidence of eschar at the time of intubation). 1. Laryngeal edema secondary to presumed thermal injury from smoking heroin At this time, patient remains intubated and mechanically ventilated for airway protection.? She remains on steroids for reducing edema.? Appreciate management per tele freight unloader.? Per the anesthesiologist report, patient had an area of eschar by the vocal folds, and had received history from the patient or family that she had accidentally inhaled and ember of heroin when she was smoking.? It was felt the findings on exam were consistent with thermal injury. -repeat CT neck soft tissue on 04/28 showed improved laryngeal swelling -switch to precedex per freight unloader to lighten sedation -hopeful extubation on 04/29 2. Acute hypoxic respiratory failure Secondary to laryngeal edema.? Continue airway protection with intubation and mechanical ventilation.? Continue sedation with propofol/fentanyl/Versed as needed. -Add precedex and wean versed 3. Hypotension Now resolved.? She is normotensive currently. 4. Volume overload Was placed on furosemide for diuresis. Unfortunately she continues to get large volumes of fluid secondary to her sedation. Despite adding furosemide yesterday, she remains 900 cc volume positive. However she is more aggressively diuresing this morning and has already put out 1200 cc by 915. Continue diuresis with lasix IV. 5. Hypokalemia Will continue to replete with liquid K TID. 6. Polysubstance dependence Patient reportedly uses heroin, methamphetamine, and has tobacco dependence.? She is overall better so sedated today.? Continue close monitoring for safety. 7. Lung nodules Chest CT on admission revealed a 1.1 cm lobulated nodular density in the left lower lobe, a 0.7 cm irregular nodule in the left lower lobe, a 0.4 cm nodule in the left lower lobe, and a 0.2 cm nodule in the left upper lobe.? Recommendations were for a PET-CT scan or short-term follow-up CT in 3 months. Code status Full Prophylaxis Continue heparin. Disposition Intensive care unit I spent a total of 35 minutes of critical care time on this patient's care today; this time is exclusive of procedural time. Time Spent With Patient Critical Care time: I spent a total of [] minutes of critical care time on this patient's care today; this time is exclusive of procedural time.
[2022-04-28] MEDS: MIDAZOLAM 50 MG in DEXTROSE 5% IN WATER 240 ML 25 MG IV (07:51)
[2022-04-28 08:02] LABS: pH ABG 7.48 (7.35-7.45)
[2022-04-28 08:03] LABS: Fractionated Inspired Oxygen 30; HCO3 ABG 30 mmol/L (22-26); Oxygen Saturation ABG 96 % (95-100); PCO2 ABG 40.7 mmHg (35-45); PO2 ABG 75 mmHg (80-100); TCO2 ABG 31 mmol/L (21-31)
[2022-04-28] MEDS: FAMOTIDINE 20 MG/2 ML VIAL IV ×2 (08:58→21:41)
[2022-04-28] MEDS: POTASSIUM CHLORIDE 20 MEQ/15 ML UDC TUBE ×3 (08:58→21:42)
[2022-04-28] MEDS: HEPARIN 5,000 UNIT/ML VIAL 5000 UNIT SUBCUT ×2 (08:58→21:42)
[2022-04-28] MEDS: FUROSEMIDE 20 MG/2 ML VIAL IV (08:58)
[2022-04-28] MEDS: SENNOSIDES 8.6 MG TABLET TUBE ×2 (08:58→21:42)
--- NOTE | 2022-04-28 13:13 | P.TELICUPN_ITS ---
Subjective Subjective If camera was activated, add TeleICU A-V statement: patient seen via 2 way av interactive system Consent obtained for tele-fashion marketer care: No (intubated) Patient Location: ICU Provider location (State): [place] Other participants/roles: RN Interval history: patient remain intubated, repeat CT neck done with imrpovement in edema and swelling. There was air leak today but it ~ 40%. still on heavy sedation Current Medications Current Medications Medications: Home Medications gabapentin 100 mg capsule 300 mg ##0 08/24/16 [History] hydromorphone 4 mg tablet (Dilaudid) ##0 08/24/16 [History] hydromorphone 4 mg tablet (Dilaudid) 4 mg PO QIDP PRN #10 tabs 08/24/16 [Rx] methadone 10 mg tablet 20 mg PO BID ##0 08/24/16 [History] cephalexin 500 mg capsule (Keflex) 500 mg PO QID #10 caps 08/27/16 [Rx] hydrocodone 5 mg-acetaminophen 325 mg tablet ([place]) 1 tab PO Q6HP PRN #6 tabs 08/27/16 [Rx] hydrocodone 7.5 mg-acetaminophen 325 mg tablet ([place]) 1 tab PO Q6HP PRN #14 tabs 10/06/16 [Rx] sulfamethoxazole 800 mg-trimethoprim 160 mg tablet 1 tab PO BID #14 tabs 10/06/16 [Rx] Visit Medications (administered) Generic Name Dose Route Start Last Admin Trade Name Freq PRN Reason Stop Dose Admin Bisacodyl 10 mg 04/27/22 09:33 04/27/22 21:09 Bisacodyl 10 Mg Supp OK 10 mg DAILY PRN Administration Constipation Chlorhexidine Gluconate 15 ml 04/25/22 00:00 04/28/22 06:48 Chlorhexidine Gluconate 15 Ml Cup PO 15 ml Q6HR AV Administration Dexamethasone 4 mg 04/25/22 01:00 04/28/22 06:48 Dexamethasone 4 Mg/Ml Vial IV 4 mg Q6H AV Administration Famotidine 20 mg 04/26/22 10:15 04/28/22 08:58 Famotidine 20 Mg/2 Ml Vial IV 20 mg BID AV Administration Furosemide 20 mg 04/26/22 09:45 04/28/22 08:58 Furosemide 20 Mg/2 Ml Vial IV 20 mg BID AV Administration Heparin Sodium (Porcine) 5,000 unit 04/25/22 09:00 04/28/22 08:58 Heparin 5,000 Unit/Ml Vial SUBCUT 5,000 unit BID AV Administration Propofol 1,000 mg in 100 mls @ 2.449 mls/hr 04/24/22 20:00 04/28/22 05:11 Propofol IV 45 mcg/kg/min TITRATE AV 22.045 mls/hr Titration Protocol 5 MCG/KG/MIN Fentanyl 1,000 mcg/ Dextrose 250 mls @ 14.288 mls/hr 04/24/22 21:30 04/28/22 11:43 IV 1.5 mcg/kg/hr TITRATE AV 30.618 mls/hr Titration Protocol 0.7 MCG/KG/HR Ampicillin Sodium/Sulbactam 100 mls @ 100 mls/hr 04/24/22 22:00 04/28/22 10:42 Sodium 3 gm/ Sodium Chloride IV 100 mls/hr Q6H AV Administration Midazolam HCl 50 mg/ Dextrose 250 mls @ 25 mls/hr 04/25/22 19:45 04/28/22 07:51 IV 5 mg/hr TITRATE AV 25 mls/hr Administration Protocol 5 MG/HR Sodium Chloride 250 mls @ 21 mls/hr 04/27/22 11:24 04/28/22 01:20 Normal Saline 0.9% IV 21 mls/hr Q24H PRN Administration Flush Midazolam HCl 2 mg 04/25/22 11:25 04/25/22 17:57 Midazolam 2 Mg/2 Ml Vial IV 2 mg Q3HR PRN Administration Agitation Potassium Chloride 20 meq 04/27/22 09:00 04/28/22 08:58 Potassium Chloride 20 Meq/15 Ml Udc TUBE 20 meq TID AV Administration Sennosides 8.6 mg 04/27/22 09:45 04/28/22 08:58 Sennosides 8.6 Mg Tablet TUBE 8.6 mg BID AV Administration Objective Ventilator Parameters: Ventilator Settings FiO2 30 RT Vent Frequency 16 Ventilator Tidal Volume 360 Exhaled Vt/kg IBW 8 Positive End Expiratory 5 Pressure Inspiratory Phase Time 0.8 I:E Ratio 1:3.7 Patient Position HOB >= 30 degrees Labs Result Diagrams: 04/28/22 05:00 04/28/22 05:00 Labs: Laboratory Results - last 24 hr 04/27/22 04/27/22 04/28/22 13:20 20:19 05:00 WBC 9.7 RBC 4.81 Hgb 14.8 Hct 42.9 MCV 89.3 MCH 30.8 MCHC 34.5 RDW 13.1 Plt Count 165 Neut % (Auto) 87.0 H Lymph % (Auto) 8.1 L [place] % (Auto) 4.3 Eos % (Auto) 0.3 L Baso % (Auto) 0.3 Neut # (Auto) 8400 H Lymph # (Auto) 800 L [place] # (Auto) 400 Eos # (Auto) 0 Baso # (Auto) 0 ABG pH ABG pCO2 ABG pO2 ABG HCO3 ABG Total CO2 ABG O2 Saturation ABG Base Excess FiO2 Sodium Potassium 3.0 L 3.6 Chloride Carbon Dioxide BUN Creatinine Estimated GFR BUN/Creatinine Ratio Glucose Calcium Total Bilirubin AST ALT Alkaline Phosphatase Total Protein Albumin Globulin Albumin/Globulin Ratio 04/28/22 04/28/22 05:00 07:35 WBC RBC Hgb Hct MCV MCH MCHC RDW Plt Count Neut % (Auto) Lymph % (Auto) [place] % (Auto) Eos % (Auto) Baso % (Auto) Neut # (Auto) Lymph # (Auto) [place] # (Auto) Eos # (Auto) Baso # (Auto) ABG pH 7.48 H ABG pCO2 40.7 ABG pO2 75 L ABG HCO3 30 H ABG Total CO2 31 ABG O2 Saturation 96 ABG Base Excess 6.0 H FiO2 30 Sodium 137 Potassium 3.6 Chloride 101 Carbon Dioxide 30 BUN 26 H Creatinine 0.60 Estimated GFR > 60 BUN/Creatinine Ratio 43.3 H Glucose 152 H Calcium 8.4 Total Bilirubin 0.4 AST 26 ALT 25 Alkaline Phosphatase 57 Total Protein 6.7 Albumin 3.7 Globulin 3.0 Albumin/Globulin Ratio 1.2 Exam Vital Signs (past 8 hours): - 04/28/22 05:30 04/28/22 06:00 04/28/22 06:00 Temperature Pulse Rate 74 68 Respiratory Rate 29 H 21 Blood Pressure 122/80 Pulse Oximetry 97 97 Oxygen Flow Rate 04/28/22 06:00 04/28/22 07:00 04/28/22 08:00 Temperature 98.5 F Pulse Rate 67 62 58 L Respiratory Rate 12 19 19 Blood Pressure 115/70 114/72 Pulse Oximetry 99 97 Oxygen Flow Rate 04/28/22 09:00 04/28/22 10:00 04/28/22 11:00 Temperature Pulse Rate 52 L 67 Respiratory Rate 18 16 Blood Pressure 109/65 132/83 Pulse Oximetry 97 100 99 Oxygen Flow Rate 0 04/28/22 12:00 Temperature 98.3 F Pulse Rate 64 Respiratory Rate 18 Blood Pressure 119/78 Pulse Oximetry 96 Oxygen Flow Rate 0 Fraction of Inspired Oxygen 30 Oxygen Delivery Method Mechanical Ventilation Oxygen Flow Rate 0 Narrative Exam Narrative: surrogate for exam is primary team Assessment & Plan Assessment and plan (1) Acute respiratory failure: Status: Acute (2) Edema of larynx: Status: Acute (3) Stridor: Status: Acute Assessment & Plan narrative: -- On propofol & versed? infusions -- will switch adrianna precedex i nthe evening as her leak is impoving -- On fentanyl for pain control -- versed pushes prn -- RASS goal -1 to 0 -- Seek early mobility -- Daily CAM ICU -- VC 16/430/30%/5 -- resp failure due to laryngeal edema -- Meeting goals of oxygenation and ventilation -- HOB elevation -- Aspiration precaution -- Daily SAT and SBT -- Daily cuff leak assessment -- Continue unasyn -- f/u resp cx -- Daily cuff leak assessment? -- May repeat Ct for air way improvement eval in am -- Likely extubation in Am -- continue dexamethasone -- MAP goal > 65 -- Goal BS < 180 -- continue? IV lasix 40 mg bid, goal euvolemia -- trend bmp -- monitor UO --? FWF to 200 mg Q4H D/w RN and RT at bedside. CCT 32 min Time Spent With Patient Critical Care time: I spent a total of [32] minutes of critical care time on this patient's care today; this time is exclusive of procedural time.
--- NOTE | 2022-04-28 13:41 | DIET.CONS2 ---
Dietary Inpatient Consultation Note Admission Date: 04/24/2022 21:11 Pt remains intubated and on high levels propofol (45mcg/kg/min). Pts laryngeal edema is improving, plan to extubate tomorrow. Continue trophic feed as written with protein pack modulars per diet order to meet protein and calorie needs. Recc checking magnesium lab as this has not been done since admission and pt has been low on K+. Diet: 04/25/22 Lunch Tube Feeding Diet Diet Modifications: Protein packets: 2 @ 800 ; 2 @ 1300 ; 2 @ 1700 TF Supplement type: Pivot 1.5 TF mode of delivery: Continuous Starting flow rate mL/hr: 10 Flow rate goal mL/hr: 10 Titration Schedule to reach Goal Rate: 0 Max total daily volume in mL: 2,400 Free fluid: 350 Free Water Frequency: Q4H Nutrition Type of Feeding Tube NG/OG 04/27/22 08:00 Electronically Signed by: Federica Hayes 04/28/22 13:41 Clinical Dietitian [address] [address]
[2022-04-28] MEDS: propofoL 1,000 MG/100 ML VIAL 22.045 MG IV (14:17)
[2022-04-28] MEDS: fentaNYL 1,000 MCG in DEXTROSE 5% IN WATER 230 ML 20.412 MCG IV (17:34)
[2022-04-28] MEDS: MIDAZOLAM 50 MG in DEXTROSE 5% IN WATER 240 ML 20 MG IV (17:40)
--- NOTE | 2022-04-28 18:32 | PC.NURSE ---
AM shift Pt vented, 6.5cm ETT 22 cm @ the teeth. R triple IJ for access. Fentanyl titrated between 1-2 mcg/kg/hr, Versed 2-5mg/hr. Propofol titrated 25-45 mcg/kg/min. VS stable. Pt wakes easily when sedation is decreased. Unable to follow commands. Needs significant supervision to not remove lines. Eyes unable to hold focus. Pt is active in polysubstance abuse. Update to SO today. CT completed to evaluate soft tissue swelling. Likely will remain 1 more day with ABX/steroids. BUE soft wrist restraiints, order up for renewal @ 2230. Pt tolerating without injury. Dim lung sounds , but remains clear. Increased in line suction required as shift progressing. Mucus consistency. TF Pivot 1.5 trickle feeding at 10 mls/hr with 200 m ls of h20 flush q4 H. No residual noted this shift. Pt more agitated this afternoon. Monitor, reassure. ADL assist completed.
[2022-04-28] MEDS: propofoL 1,000 MG/100 ML VIAL 17.146 MG IV (19:23)
--- NOTE | 2022-04-28 20:12 | PM.ICURNDS ---
- :: This patient was seen via real time interactive two-way audiovisual telecommunication. patient remaisn intubated, will increase lasix and switch sedation to hep augment possible extubation.
[2022-04-28] MEDS: dexmedeTOMIDine in 0.9 % NaCL 400 MCG/100 ML PLAST..BAG IV (21:39)
[2022-04-28] MEDS: FUROSEMIDE 20 MG/2 ML VIAL 40 MG IV (21:41)
[2022-04-29] VITALS (60 sets, daily range): BP systolic 83–153; BP diastolic 51–86; PULSE 49–80; RESP 14–39; TEMP 36.5–37.1; O2SAT 92–99
[2022-04-29] MEDS: propofoL 1,000 MG/100 ML VIAL 14.696 MG IV (01:23)
[2022-04-29] MEDS: fentaNYL 1,000 MCG in DEXTROSE 5% IN WATER 230 ML 20.412 MCG IV (01:26)
[2022-04-29] MEDS: CHLORHEXIDINE GLUCONATE 15 ML CUP PO (01:31)
[2022-04-29] MEDS: DEXAMETHASONE 4 MG/ML VIAL IV ×4 (01:32→21:14)
[2022-04-29] MEDS: AMPICILLIN/SULBACTAM 3 GM 3 GM in SODIUM CHLORIDE 0.9% 100 ML IV ×4 (03:45→23:03)
[2022-04-29] MEDS: propofoL 1,000 MG/100 ML VIAL 12.247 MG IV (04:44)
[2022-04-29] MEDS: MIDAZOLAM 2 MG/2 ML VIAL IV ×2 (05:22→08:23)
[2022-04-29 05:32] LABS: Add Manual Diff / Slide Review NO; Basophils Absolute Auto 0 /uL (0-100); Basophils Percent Auto 0.1 % (0-2); Eosinophils Absolute Auto 0 /uL (0-450); Eosinophils Percent Auto 0.1 % (2-4); Hematocrit 43.6 % (36-46); Hemoglobin 14.8 g/dL (12.0-16.0); Lymphocytes Absolute Auto 700 /uL (1100-4500); Lymphocytes Percent Auto 8.9 % (25-40); Mean Corpuscular Hemoglobin 30.6 PG (26-34); Monocytes Absolute Auto 400 /uL (0-900); Monocytes Percent Auto 5.5 % (3-14); Neutrophils Absolute Auto 6300 /uL (1500-7000); Neutrophils Percent Auto 85.4 % (50-75); Platelet Count 162 X10^3/uL (150-400); Red Blood Cell Count 4.84 X10^6/uL (4.0-5.2); Red Cell Distribution Width 13.2 % (11.6-14.8); White Blood Cell Count 7.3 X10^3/uL (4.5-11.0)
[2022-04-29 05:54] LABS: Alanine Aminotransferase 33 IU/L (<35); Albumin 3.6 g/dL (3.5-5.0); Albumin Globulin Ratio 1.3 (1.0-2.8); Alkaline Phosphatase 56 U/L (38-126); Aspartate Aminotransferase 34 IU/L (14-36); BUN Creatinine Ratio 51.6 (6-22); Bilirubin Total 0.4 mg/dL (0.2-1.3); Blood Urea Nitrogen 33 mg/dL (7-17); Calcium 8.1 mg/dL (8.4-10.2); Carbon Dioxide 29 mmol/L (22-32); Chloride 99 mmol/L (98-107); Estimated Glomerular Filt Rate > 60 mL/min (>60); Globulin 2.8 g/dL (1.7-4.1); Glucose 139 mg/dL (70-100); HEMOLYSIS 19 (0-50); Potassium 3.5 mmol/L (3.4-5.1); Sodium 136 mmol/L (137-145); Total Protein 6.4 g/dL (6.3-8.2)
[2022-04-29] MEDS: SODIUM CHLORIDE 0.9% 100 ML 250 ML IV (06:49)
--- NOTE | 2022-04-29 07:27 | PC.NURSE ---
End of shift note. Care of patient from [id number]. Patient's sedation was changed at beginning of shift. Versed gtt d/c and started precedex gtt. Patient became SB 50s on Precedex 0.2mcg/kg/min, held gtt. Patient's SBP 80s with Map 65s. Hansa notified, no new orders. This am MAP <[address] Longoria and gave NS 250ml bolus and d/c Lasix. Patient had out 2 Liters of Urine. Patient will become agitated with stimulation +3, when sedation titrated down for low BP would become more agitated. Currently this am patient is sedated with Fentanly 2mcg/kg/min and Propofol 40mcg/kg/hr. Patient was given one dose of Versed 2mg IV push this morning for RASS +3. Plan is to possibly extubate patient today.
--- NOTE | 2022-04-29 09:24 | P.PN_ITS ---
Subjective Subjective Date Patient Seen: 04/29/22 Time Patient Seen: 11:00 Interval history: I was present while patient was extubated. She states she feels much better with the tube out that her breathing is adequate. Currently satting 95% on room air. Exam Vital Signs (past 8 hours): - 04/29/22 01:30 04/29/22 02:00 04/29/22 01:36 Temperature Pulse Rate 57 L 73 66 Respiratory Rate 19 30 H 21 Blood Pressure 121/86 Pulse Oximetry 97 98 98 Oxygen Delivery Method Fraction of Inspired Oxygen 35 04/29/22 01:36 04/29/22 01:46 04/29/22 01:46 Temperature Pulse Rate 65 Respiratory Rate 25 H Blood Pressure 92/60 107/72 Pulse Oximetry 99 Oxygen Delivery Method Fraction of Inspired Oxygen 04/29/22 01:56 04/29/22 01:56 04/29/22 02:00 Temperature Pulse Rate 71 Respiratory Rate 26 H Blood Pressure 121/83 121/86 Pulse Oximetry 98 Oxygen Delivery Method Fraction of Inspired Oxygen 04/29/22 02:00 04/29/22 02:15 04/29/22 02:15 Temperature Pulse Rate 72 69 Respiratory Rate 39 H 24 Blood Pressure 120/80 Pulse Oximetry 98 99 Oxygen Delivery Method Fraction of Inspired Oxygen 04/29/22 02:30 04/29/22 02:45 04/29/22 02:45 Temperature Pulse Rate 79 79 Respiratory Rate 28 H 26 H Blood Pressure 112/77 Pulse Oximetry 99 96 Oxygen Delivery Method Fraction of Inspired Oxygen 04/29/22 03:00 04/29/22 03:00 04/29/22 03:15 Temperature Pulse Rate 72 62 Respiratory Rate 27 H 19 Blood Pressure 119/82 Pulse Oximetry 92 93 Oxygen Delivery Method Fraction of Inspired Oxygen 04/29/22 03:15 04/29/22 03:30 04/29/22 03:30 Temperature Pulse Rate 56 L Respiratory Rate 16 Blood Pressure 109/66 105/65 Pulse Oximetry 94 Oxygen Delivery Method Fraction of Inspired Oxygen 04/29/22 03:45 04/29/22 03:45 04/29/22 04:00 Temperature Pulse Rate 52 L Respiratory Rate 15 Blood Pressure 101/62 90/56 L Pulse Oximetry 93 Oxygen Delivery Method Fraction of Inspired Oxygen 04/29/22 04:00 04/29/22 04:04 04/29/22 04:04 Temperature Pulse Rate 52 L 51 L Respiratory Rate 16 16 Blood Pressure 91/53 L Pulse Oximetry 93 93 Oxygen Delivery Method Fraction of Inspired Oxygen 04/29/22 04:16 04/29/22 04:16 04/29/22 04:25 Temperature Pulse Rate 51 L 50 L Respiratory Rate 16 16 Blood Pressure 86/54 L Pulse Oximetry 93 98 Oxygen Delivery Method Fraction of Inspired Oxygen 04/29/22 04:25 04/29/22 04:30 04/29/22 04:30 Temperature Pulse Rate 50 L Respiratory Rate 19 Blood Pressure 87/51 L 89/57 L Pulse Oximetry 99 Oxygen Delivery Method Fraction of Inspired Oxygen 04/29/22 04:00 04/29/22 04:45 04/29/22 04:45 Temperature Pulse Rate 50 L Respiratory Rate 16 Blood Pressure 85/53 L Pulse Oximetry 93 Oxygen Delivery Method Mechanical Ventilation Fraction of Inspired Oxygen 04/29/22 05:00 04/29/22 05:00 04/29/22 05:18 Temperature Pulse Rate 50 L 58 L Respiratory Rate 16 25 H Blood Pressure 88/55 L Pulse Oximetry 94 94 Oxygen Delivery Method Fraction of Inspired Oxygen 04/29/22 05:18 04/29/22 05:30 04/29/22 05:30 Temperature Pulse Rate 53 L Respiratory Rate 19 Blood Pressure 94/69 97/68 Pulse Oximetry 95 Oxygen Delivery Method Fraction of Inspired Oxygen 04/29/22 05:45 04/29/22 05:45 04/29/22 06:00 Temperature Pulse Rate 51 L Respiratory Rate 16 Blood Pressure 88/60 L 83/55 L Pulse Oximetry 94 Oxygen Delivery Method Fraction of Inspired Oxygen 04/29/22 06:00 04/29/22 06:15 04/29/22 06:15 Temperature Pulse Rate 50 L 49 L Respiratory Rate 16 16 Blood Pressure 83/52 L Pulse Oximetry 96 95 Oxygen Delivery Method Fraction of Inspired Oxygen 04/29/22 07:00 04/29/22 07:00 04/29/22 07:45 Temperature Pulse Rate 49 L 58 L Respiratory Rate 16 20 Blood Pressure 87/52 L Pulse Oximetry 94 95 Oxygen Delivery Method Fraction of Inspired Oxygen 04/29/22 07:45 04/29/22 08:00 04/29/22 08:11 Temperature Pulse Rate 66 Respiratory Rate 22 Blood Pressure 103/65 112/61 Pulse Oximetry 93 Oxygen Delivery Method Fraction of Inspired Oxygen 04/29/22 08:11 04/29/22 09:00 04/29/22 09:00 Temperature 98.8 F Pulse Rate 69 68 Respiratory Rate 27 H 30 H Blood Pressure 100/66 Pulse Oximetry 97 95 Oxygen Delivery Method Fraction of Inspired Oxygen Fraction of Inspired Oxygen 35 Oxygen Delivery Method Mechanical Ventilation Oxygen Flow Rate 0 Narrative Exam Narrative: GEN:?Now extubated middle-aged female,NAD HEENT:[place], Face symmetric, minimal lip swelling noted, tongue appears to be near normal p CHEST: Respiratory excursions symmetric, CTAB CV: RRR, no M/R/G ABD: Soft, NT/ND, BT present in all 4 quadrants, no organomegaly or masses EXTR: warm, well perfused, no C/C/E SKIN: warm and dry, no rash NEURO:? Intubated, sedated, nonfocal Objective Labs Result Diagrams: 04/29/22 05:10 04/29/22 05:10 Labs: Laboratory Results - last 24 hr 04/29/22 04/29/22 05:10 05:10 WBC 7.3 RBC 4.84 Hgb 14.8 Hct 43.6 MCV 90.0 MCH 30.6 MCHC 34.0 RDW 13.2 Plt Count 162 Neut % (Auto) 85.4 H Lymph % (Auto) 8.9 L [place] % (Auto) 5.5 Eos % (Auto) 0.1 L Baso % (Auto) 0.1 Neut # (Auto) 6300 Lymph # (Auto) 700 L [place] # (Auto) 400 Eos # (Auto) 0 Baso # (Auto) 0 Sodium 136 L Potassium 3.5 Chloride 99 Carbon Dioxide 29 BUN 33 H Creatinine 0.64 Estimated GFR > 60 BUN/Creatinine Ratio 51.6 H Glucose 139 H Calcium 8.1 L Total Bilirubin 0.4 AST 34 ALT 33 Alkaline Phosphatase 56 Total Protein 6.4 Albumin 3.6 Globulin 2.8 Albumin/Globulin Ratio 1.3 PFSH Social History household members: spouse Smoking Status: Current every day smoker Assessment & Plan Assessment & Plan narrative: 56-year-old female with active heroin dependence and tobacco dependence who is presently hospital day 2 admitted with laryngeal edema felt to be secondary to thermal injury from smoking heroin (anesthesia reported patient having history of a inhaling a heroin ember and her having evidence of eschar at the time of intubation). 1. Laryngeal edema secondary to presumed thermal injury from smoking heroin At this time, patient remains intubated and mechanically ventilated for airway protection.? She remains on steroids for reducing edema.? Appreciate management per tele kitchen mechanic.? Per the anesthesiologist report, patient had an area of eschar by the vocal folds, and had received history from the patient or family that she had accidentally inhaled and ember of heroin when she was smoking.? It was felt the findings on exam were consistent with thermal injury. -repeat CT neck soft tissue on 04/28 showed improved laryngeal swelling -extubated to room air on 04/30 2. Acute hypoxic respiratory failure, resolved Secondary to laryngeal edema.? Continue airway protection with intubation and mechanical ventilation.? Continue sedation with propofol/fentanyl/Versed as needed. -Now off O2 3. Hypotension Now resolved.? She is normotensive currently. 4. Volume overload Was placed on furosemide for diuresis. Unfortunately she continues to get large volumes of fluid secondary to her sedation. Despite adding furosemide yesterday, she remains 900 cc volume positive. However she is more aggressively diuresing this morning and has already put out 1200 cc by 915. Continue diuresis with lasix IV. 5. Hypokalemia Will continue to replete with 40 of K daily. 6. Polysubstance dependence Patient reportedly uses heroin, methamphetamine, and has tobacco dependence.? She is overall better so sedated today.? Continue close monitoring for safety. 7. Lung nodules Chest CT on admission revealed a 1.1 cm lobulated nodular density in the left lower lobe, a 0.7 cm irregular nodule in the left lower lobe, a 0.4 cm nodule in the left lower lobe, and a 0.2 cm nodule in the left upper lobe.? Recommendations were for a PET-CT scan or short-term follow-up CT in 3 months. Code status Full Prophylaxis Continue heparin. Disposition Can likely downgrade from ICU on 04/30. I spent a total of 35 minutes of critical care time on this patient's care today; this time is exclusive of procedural time. Time Spent With Patient Critical Care time: I spent a total of [] minutes of critical care time on this patient's care today; this time is exclusive of procedural time.
[2022-04-29] MEDS: propofoL 1,000 MG/100 ML VIAL 22.045 MG IV (09:32)
[2022-04-29] MEDS: fentaNYL 1,000 MCG in DEXTROSE 5% IN WATER 230 ML 40.824 MCG IV (10:26)
[2022-04-29] MEDS: POTASSIUM CHLORIDE 20 MEQ/15 ML UDC TUBE (10:28)
[2022-04-29] MEDS: FAMOTIDINE 20 MG/2 ML VIAL IV ×2 (10:28→21:14)
[2022-04-29] MEDS: HEPARIN 5,000 UNIT/ML VIAL 5000 UNIT SUBCUT (10:28)
[2022-04-29] MEDS: SENNOSIDES 8.6 MG TABLET TUBE ×2 (10:28→21:20)
--- NOTE | 2022-04-29 10:28 | P.TELICUPN_ITS ---
Subjective Subjective If camera was activated, add TeleICU A-V statement: This patient was seen via real time interactive two-way audiovisual telecommunication. Consent obtained for tele-timber sizer operator care: Yes Patient Location: ICU Provider location (State): [place] Other participants/roles: RN Interval history: Patient remains intubated, did not tolerate precedex due to bradycardia. on profpofl and fentanyl, which will be weaned down as toelrated. Pt is currently awake and following some commands. Current Medications Current Medications Medications: Home Medications gabapentin 100 mg capsule 300 mg ##0 08/24/16 [History] hydromorphone 4 mg tablet (Dilaudid) ##0 08/24/16 [History] hydromorphone 4 mg tablet (Dilaudid) 4 mg PO QIDP PRN #10 tabs 08/24/16 [Rx] methadone 10 mg tablet 20 mg PO BID ##0 08/24/16 [History] cephalexin 500 mg capsule (Keflex) 500 mg PO QID #10 caps 08/27/16 [Rx] hydrocodone 5 mg-acetaminophen 325 mg tablet ([place]) 1 tab PO Q6HP PRN #6 tabs 08/27/16 [Rx] hydrocodone 7.5 mg-acetaminophen 325 mg tablet ([place]) 1 tab PO Q6HP PRN #14 tabs 10/06/16 [Rx] sulfamethoxazole 800 mg-trimethoprim 160 mg tablet 1 tab PO BID #14 tabs 10/06/16 [Rx] Visit Medications (administered) Generic Name Dose Route Start Last Admin Trade Name Freq PRN Reason Stop Dose Admin Bisacodyl 10 mg 04/27/22 09:33 04/27/22 21:09 Bisacodyl 10 Mg Supp DC 10 mg DAILY PRN Administration Constipation Chlorhexidine Gluconate 15 ml 04/25/22 00:00 04/29/22 06:39 Chlorhexidine Gluconate 15 Ml Cup PO Not Given Q6HR AV Dexamethasone 4 mg 04/25/22 01:00 04/29/22 06:54 Dexamethasone 4 Mg/Ml Vial IV 4 mg Q6H AV Administration Famotidine 20 mg 04/26/22 10:15 04/28/22 21:41 Famotidine 20 Mg/2 Ml Vial IV 20 mg BID AV Administration Heparin Sodium (Porcine) 5,000 unit 04/25/22 09:00 04/28/22 21:42 Heparin 5,000 Unit/Ml Vial SUBCUT 5,000 unit BID AV Administration Propofol 1,000 mg in 100 mls @ 2.449 mls/hr 04/24/22 20:00 04/29/22 09:32 Propofol IV 45 mcg/kg/min TITRATE AV 22.045 mls/hr Administration Protocol 5 MCG/KG/MIN Fentanyl 1,000 mcg/ Dextrose 250 mls @ 14.288 mls/hr 04/24/22 21:30 04/29/22 05:20 IV 2 mcg/kg/hr TITRATE AV 40.824 mls/hr Titration Protocol 0.7 MCG/KG/HR Ampicillin Sodium/Sulbactam 100 mls @ 100 mls/hr 04/24/22 22:00 04/29/22 05:12 Sodium 3 gm/ Sodium Chloride IV Infused Q6H AV Infusion Sodium Chloride 250 mls @ 21 mls/hr 04/27/22 11:24 04/29/22 03:41 Normal Saline 0.9% IV Infused Q24H PRN Infusion Flush dexmedeTOMIDine in 0.9 % NaCL 400 mcg in 100 mls @ 3.795 mls/hr 04/28/22 20:15 04/29/22 03:47 Precedex IV 0 mcg/kg/hr TITRATE AV 0 mls/hr Titration Protocol 0.2 MCG/KG/HR Midazolam HCl 2 mg 04/25/22 11:25 04/29/22 08:23 Midazolam 2 Mg/2 Ml Vial IV 2 mg Q3HR PRN Administration Agitation Potassium Chloride 20 meq 04/27/22 09:00 04/28/22 21:42 Potassium Chloride 20 Meq/15 Ml Udc TUBE 20 meq TID AV Administration Sennosides 8.6 mg 04/27/22 09:45 04/28/22 21:42 Sennosides 8.6 Mg Tablet TUBE 8.6 mg BID AV Administration Objective Ventilator Parameters: Ventilator Settings FiO2 35 RT Vent Frequency 16 Ventilator Tidal Volume 360 Exhaled Vt/kg IBW 8 Positive End Expiratory 5 Pressure Inspiratory Phase Time 0.8 I:E Ratio 1:3.7 Patient Position HOB >= 30 degrees Labs Result Diagrams: 04/29/22 05:10 04/29/22 05:10 Labs: Laboratory Results - last 24 hr 04/29/22 04/29/22 05:10 05:10 WBC 7.3 RBC 4.84 Hgb 14.8 Hct 43.6 MCV 90.0 MCH 30.6 MCHC 34.0 RDW 13.2 Plt Count 162 Neut % (Auto) 85.4 H Lymph % (Auto) 8.9 L [place] % (Auto) 5.5 Eos % (Auto) 0.1 L Baso % (Auto) 0.1 Neut # (Auto) 6300 Lymph # (Auto) 700 L [place] # (Auto) 400 Eos # (Auto) 0 Baso # (Auto) 0 Sodium 136 L Potassium 3.5 Chloride 99 Carbon Dioxide 29 BUN 33 H Creatinine 0.64 Estimated GFR > 60 BUN/Creatinine Ratio 51.6 H Glucose 139 H Calcium 8.1 L Total Bilirubin 0.4 AST 34 ALT 33 Alkaline Phosphatase 56 Total Protein 6.4 Albumin 3.6 Globulin 2.8 Albumin/Globulin Ratio 1.3 Exam Vital Signs (past 8 hours): - 04/29/22 02:30 04/29/22 02:45 04/29/22 02:45 Temperature Pulse Rate 79 79 Respiratory Rate 28 H 26 H Blood Pressure 112/77 Pulse Oximetry 99 96 Oxygen Delivery Method 04/29/22 03:00 04/29/22 03:00 04/29/22 03:15 Temperature Pulse Rate 72 62 Respiratory Rate 27 H 19 Blood Pressure 119/82 Pulse Oximetry 92 93 Oxygen Delivery Method 04/29/22 03:15 04/29/22 03:30 04/29/22 03:30 Temperature Pulse Rate 56 L Respiratory Rate 16 Blood Pressure 109/66 105/65 Pulse Oximetry 94 Oxygen Delivery Method 04/29/22 03:45 04/29/22 03:45 04/29/22 04:00 Temperature Pulse Rate 52 L Respiratory Rate 15 Blood Pressure 101/62 90/56 L Pulse Oximetry 93 Oxygen Delivery Method 04/29/22 04:00 04/29/22 04:04 04/29/22 04:04 Temperature Pulse Rate 52 L 51 L Respiratory Rate 16 16 Blood Pressure 91/53 L Pulse Oximetry 93 93 Oxygen Delivery Method 04/29/22 04:16 04/29/22 04:16 04/29/22 04:25 Temperature Pulse Rate 51 L 50 L Respiratory Rate 16 16 Blood Pressure 86/54 L Pulse Oximetry 93 98 Oxygen Delivery Method 04/29/22 04:25 04/29/22 04:30 04/29/22 04:30 Temperature Pulse Rate 50 L Respiratory Rate 19 Blood Pressure 87/51 L 89/57 L Pulse Oximetry 99 Oxygen Delivery Method 04/29/22 04:00 04/29/22 04:45 04/29/22 04:45 Temperature Pulse Rate 50 L Respiratory Rate 16 Blood Pressure 85/53 L Pulse Oximetry 93 Oxygen Delivery Method Mechanical Ventilation 04/29/22 05:00 04/29/22 05:00 04/29/22 05:18 Temperature Pulse Rate 50 L 58 L Respiratory Rate 16 25 H Blood Pressure 88/55 L Pulse Oximetry 94 94 Oxygen Delivery Method 04/29/22 05:18 04/29/22 05:30 04/29/22 05:30 Temperature Pulse Rate 53 L Respiratory Rate 19 Blood Pressure 94/69 97/68 Pulse Oximetry 95 Oxygen Delivery Method 04/29/22 05:45 04/29/22 05:45 04/29/22 06:00 Temperature Pulse Rate 51 L Respiratory Rate 16 Blood Pressure 88/60 L 83/55 L Pulse Oximetry 94 Oxygen Delivery Method 04/29/22 06:00 04/29/22 06:15 04/29/22 06:15 Temperature Pulse Rate 50 L 49 L Respiratory Rate 16 16 Blood Pressure 83/52 L Pulse Oximetry 96 95 Oxygen Delivery Method 04/29/22 07:00 04/29/22 07:00 04/29/22 07:45 Temperature Pulse Rate 49 L 58 L Respiratory Rate 16 20 Blood Pressure 87/52 L Pulse Oximetry 94 95 Oxygen Delivery Method 04/29/22 07:45 04/29/22 08:00 04/29/22 08:11 Temperature Pulse Rate 66 Respiratory Rate 22 Blood Pressure 103/65 112/61 Pulse Oximetry 93 Oxygen Delivery Method 04/29/22 08:11 04/29/22 09:00 04/29/22 09:00 Temperature 98.8 F Pulse Rate 69 68 Respiratory Rate 27 H 30 H Blood Pressure 100/66 Pulse Oximetry 97 95 Oxygen Delivery Method 04/29/22 10:00 04/29/22 10:00 Temperature Pulse Rate 76 Respiratory Rate 29 H Blood Pressure 110/74 Pulse Oximetry 97 Oxygen Delivery Method Fraction of Inspired Oxygen 35 Oxygen Delivery Method Mechanical Ventilation Oxygen Flow Rate 0 Narrative Exam Narrative: surrogate fro exam is priamry team Assessment & Plan Assessment and plan (1) Acute respiratory failure: Status: Acute (2) Edema of larynx: Status: Acute (3) Stridor: Status: Acute Assessment & Plan narrative: -- On propofol & fent? infusions -- rapidly wean off fentanyl as tolerated, will plan for fent pushes as needed -- RASS goal -1 to 0 -- Seek early mobility -- Daily CAM ICU -- VC 16/430/30%/5 -- resp failure due to laryngeal edema -- Meeting goals of oxygenation and ventilation -- will repeat leak test, and SBT if ~50% today. -- HOB elevation -- Aspiration precaution -- Daily SAT and SBT -- Daily cuff leak assessment -- Continue unasyn -- f/u resp cx -- continue dexamethasone -- MAP goal > 65 -- Goal BS < 180 -- continue? IV lasix 40 mg bid, goal euvolemia -- trend bmp -- monitor UO --? FWF to 200 mg Q4H D/w RN Time Spent With Patient Critical Care time: I spent a total of [32] minutes of critical care time on this patient's care today; this time is exclusive of procedural time.
--- NOTE | 2022-04-29 11:13 | PC.NURSE ---
Addendum entered by Hansa Galvan R.N. 04/29/22 15:18: 1400-Pt is getting anxious and restless in room, reporting back pain and requesting home dose of soma. Pt admits to smoking 1 gm of heroin daily to help with back pain. They wont give me enough meds to make it stop hurting Tearful. Asked why she wasn't in withdrawl yet if here for 3 days. Updated on course of treatment here, and Pt reports that Any minute I will need something to keep me from getting sick Addendum entered by Hansa Galvan R.N. 04/29/22 12:45: 1155 Pt able to be extubated, giving middle finger to staff during SBT and after extubation. I can't believe you people torture patients like this! Pt is alert and oriented, no recall of events leading up to intubation. BA is active. Pt is tolerating PO intake and will have a soft diet trial. Nicotine patch requested and placed. [place] given for pain. Original Note: SBT Prepare to extubate
[2022-04-29] MEDS: HYDROCODONE/ACET 5/325 TABLET 1 TAB PO ×2 (12:38→18:58)
[2022-04-29 12:42] LABS: Magnesium 2.3 mg/dL (1.6-2.3)
[2022-04-29] MEDS: NICOTINE 21 MG PATCH TOP (12:42)
[2022-04-29] MEDS: dexmedeTOMIDine in 0.9 % NaCL 400 MCG/100 ML PLAST..BAG IV ×2 (14:16→23:09)
[2022-04-29] MEDS: POTASSIUM CHLORIDE IN WATER 10 MEQ/100 ML PIGGYBACK 100 MEQ IV ×3 (18:24→22:58)
--- NOTE | 2022-04-29 20:21 | PM.ICURNDS ---
- Date Patient Seen: 04/29/22 Time Patient Seen: 20:22 :: This patient was seen via real time interactive two-way audiovisual telecommunication. Note: Patient successfully extubate today and weaned to room air. On precedex 0.2 mcg. Will continue titrating down precedex. Once patient is medically clear she is agreeable to be admitted for heroin detox program. Okay to dc central line after placement of PIVs. D/w patient and RN at bedside.
[2022-04-29] MEDS: ONDANSETRON 4 MG/2 ML INJ IV (21:15)
[2022-04-29] MEDS: TRAMADOL 50 MG TABLET PO (21:16)
[2022-04-30] VITALS (31 sets, daily range): BP systolic 115–163; BP diastolic 63–83; PULSE 53–83; RESP 12–35; TEMP 36.2–37.7; O2SAT 85–100
[2022-04-30] MEDS: POTASSIUM CHLORIDE IN WATER 10 MEQ/100 ML PIGGYBACK 100 MEQ IV (00:16)
[2022-04-30] MEDS: HYDROCODONE/ACET 5/325 TABLET 1 TAB PO ×2 (00:17→16:49)
[2022-04-30] MEDS: DEXAMETHASONE 4 MG/ML VIAL IV ×4 (01:55→18:10)
[2022-04-30] MEDS: ONDANSETRON 4 MG/2 ML INJ IV ×2 (01:55→20:41)
[2022-04-30] MEDS: AMPICILLIN/SULBACTAM 3 GM 3 GM in SODIUM CHLORIDE 0.9% 100 ML IV (04:56)
[2022-04-30 05:29] LABS: Blood Urea Nitrogen 31 mg/dL (7-17); Calcium 8.4 mg/dL (8.4-10.2); Carbon Dioxide 28 mmol/L (22-32); Chloride 107 mmol/L (98-107); Estimated Glomerular Filt Rate > 60 mL/min (>60); Glucose 113 mg/dL (70-100); HEMOLYSIS < 15 (0-50); Sodium 140 mmol/L (137-145)
[2022-04-30] MEDS: TRAMADOL 50 MG TABLET PO ×2 (06:40→12:24)
--- NOTE | 2022-04-30 07:35 | PC.NURSE ---
End of Shift Note. Care of patient from [id number]. Patient AAOX4, RASS zero, on Precedex 0.2mcg/kg/min. SB-SR 60-65. Good pain control with Tramodol and vicodin. Up to BSC to void. Two attempts to place PIV during the night. There is an order to dc Rt IJ central line, need PIV placed first. Fall risk, bed alarm on.
--- NOTE | 2022-04-30 08:38 | P.PN_ITS ---
Subjective Subjective Date Patient Seen: 04/30/22 Time Patient Seen: 12:00 Interval history: Patient states she wants her central line out of her neck as it makes it hard to breath. Otherwise breathing is improved. Later in day patient reported to nursing she wanted to commit suicide. Bedside sitter placed. Exam Vital Signs (past 8 hours): - 04/30/22 01:00 04/30/22 01:00 04/30/22 02:00 Temperature Pulse Rate 61 Respiratory Rate 12 Blood Pressure 120/73 131/73 Pulse Oximetry 96 Oxygen Delivery Method 04/30/22 02:00 04/30/22 03:00 04/30/22 03:01 Temperature Pulse Rate 59 L 57 L 56 L Respiratory Rate 18 21 19 Blood Pressure Pulse Oximetry 95 96 95 Oxygen Delivery Method 04/30/22 03:01 04/30/22 04:00 04/30/22 04:01 Temperature Pulse Rate 54 L 54 L Respiratory Rate 19 24 Blood Pressure 163/72 H Pulse Oximetry 94 94 Oxygen Delivery Method 04/30/22 04:01 04/30/22 04:00 04/30/22 05:00 Temperature Pulse Rate 60 Respiratory Rate 24 Blood Pressure 138/75 Pulse Oximetry 96 Oxygen Delivery Method Room Air 04/30/22 05:01 04/30/22 05:01 04/30/22 06:00 Temperature 98.3 F Pulse Rate 61 75 Respiratory Rate 19 Blood Pressure 159/76 H Pulse Oximetry 95 95 Oxygen Delivery Method 04/30/22 06:01 04/30/22 06:01 04/30/22 07:00 Temperature Pulse Rate 71 Respiratory Rate Blood Pressure 139/71 154/83 H Pulse Oximetry 95 Oxygen Delivery Method 04/30/22 07:00 04/30/22 08:00 Temperature Pulse Rate 61 60 Respiratory Rate 15 23 Blood Pressure 143/79 H Pulse Oximetry 97 97 Oxygen Delivery Method Fraction of Inspired Oxygen 35 Oxygen Delivery Method Room Air Oxygen Flow Rate 0 Narrative Exam Narrative: GEN:?middle-aged female, appears frustrated HEENT:NC, Face symmetric, minimal lip swelling noted, tongue appears to be near normal p CHEST: Respiratory excursions symmetric, CTAB CV: RRR, no M/R/G ABD: Soft, NT/ND, BT present in all 4 quadrants, no organomegaly or masses EXTR: warm, well perfused, no C/C/E SKIN: warm and dry, no rash NEURO:? Intubated, sedated, nonfocal Objective Labs Result Diagrams: 04/29/22 05:10 04/30/22 05:00 Labs: Laboratory Results - last 24 hr 04/29/22 04/30/22 05:10 05:00 Sodium 140 Potassium 4.0 Chloride 107 Carbon Dioxide 28 BUN 31 H Creatinine 0.66 Estimated GFR > 60 BUN/Creatinine Ratio 47.0 H Glucose 113 H Calcium 8.4 Magnesium 2.3 PFSH Social History household members: spouse Smoking Status: Current every day smoker Assessment & Plan Assessment & Plan narrative: 56-year-old female with active heroin dependence and tobacco dependence who is presently hospital day 2 admitted with laryngeal edema felt to be secondary to thermal injury from smoking heroin (anesthesia reported patient having history of a inhaling a heroin ember and her having evidence of eschar at the time of intubation). Extubated on 04/29 to room air. # Suicidal ideation -patient reporting wanted to commit suicide, no definite plan -start sertraline and ativan PRN for anxiety -bedside sitter in place -may need psych consult -SENIOR CONSUMER INSIGHTS CONSULTANT working to have patient placed # Laryngeal edema secondary to presumed thermal injury from smoking heroin, improved At this time, patient remains intubated and mechanically ventilated for airway protection.? She remains on steroids for reducing edema.? Appreciate management per tele dowel inserting machine operator.? Per the anesthesiologist report, patient had an area of eschar by the vocal folds, and had received history from the patient or family that she had accidentally inhaled and ember of heroin when she was smoking.? It was felt the findings on exam were consistent with thermal injury. -repeat CT neck soft tissue on 04/28 showed improved laryngeal swelling -extubated to room air on 04/30 -now on room air # Acute hypoxic respiratory failure, resolved Secondary to laryngeal edema.? Continue airway protection with intubation and mechanical ventilation.? Continue sedation with propofol/fentanyl/Versed as needed. -Now off O2 # Hypotension Now resolved.? She is normotensive currently. # Hypokalemia, resolved -monitor # Polysubstance dependence Patient reportedly uses heroin, methamphetamine, and has tobacco dependence.? She is overall better so sedated today.? Continue close monitoring for safety. -SENIOR CONSUMER INSIGHTS CONSULTANT working on placement in detox program # Lung nodules Chest CT on admission revealed a 1.1 cm lobulated nodular density in the left lower lobe, a 0.7 cm irregular nodule in the left lower lobe, a 0.4 cm nodule in the left lower lobe, and a 0.2 cm nodule in the left upper lobe.? Recommendations were for a PET-CT scan or short-term follow-up CT in 3 months. Code status Full Prophylaxis Continue heparin. Disposition Pending placement in detox program. Time Spent With Patient Critical Care time: I spent a total of [] minutes of critical care time on this patient's care today; this time is exclusive of procedural time.
[2022-04-30] MEDS: FAMOTIDINE 20 MG/2 ML VIAL IV (09:09)
[2022-04-30] MEDS: HEPARIN 5,000 UNIT/ML VIAL 5000 UNIT SUBCUT (09:09)
[2022-04-30] MEDS: NICOTINE 21 MG PATCH TOP (09:19)
--- NOTE | 2022-04-30 10:53 | DIET.CONS2 ---
Dietary Inpatient Consultation Note Admission Date: 04/24/2022 21:11 RD spoke c pt this morning. Pt endorses dry mouth, sore throat, some nausea. Pt had dry mouth swab. Provided small cup water for patient to dip swab in, pt thankful. Pt ordered jello with banana for lunch today to see if she can tolerate it. Diet: 04/29/22 Dinner Dysphagia Diet Diet Modifications: May Advance Diet as Tolerated: Yes Liquid consistency: Normal/Thin Food texture: Dysphagia Mechanical Soft Nutrition Percent Meal Consumed 0% 04/30/22 09:29 Percent Meal Consumed 0% 04/29/22 20:12 Electronically Signed by: Federica Hayes 04/30/22 10:53 Clinical Dietitian [address] [address]
--- NOTE | 2022-04-30 15:53 | PC.NURSE ---
Addendum entered by Kateryna Mckee R.N. 04/30/22 16:27: Dr. Day notified of continual statements of I am going to commit suicide by patient. See new orders. Patient medicated per orders. Social work at bedside talking with patient. Patient on 1:1 supervision for suicidal ideation. Original Note: 1350 - Patient called BILLET EXAMINER to room and told her I am going to commit suicide. BILLET EXAMINER alerted this nurse and this nurse assessed patient. Patient repeatedly stating that I am going to commit suicide. Asked patient if she was serious, to which she replied yes. All objects near patient removed from reach and BILLET EXAMINER sitting with patient. Nurse coordinater made aware and physician is in procedure currently with another patient. Will notify him as soon as possible.
[2022-04-30] MEDS: LORazepam 1 MG TABLET PO ×2 (16:04→20:41)
[2022-04-30] MEDS: SERTRALINE 50 MG TABLET PO (16:04)
--- NOTE | 2022-04-30 16:26 | CM.DPC ---
DCP/continued: Received notification from provider that patient extubated on 04-29-22. Patient not medically cleared for discharge today. However, it is suspected that she will need mental health/substance abuse treatment when appropriate. Received call from patient's spouse/Keith, he reports that family would like patient to go to treatment from hospital. Notified Keith that this would depend on type of treatment needed when medically stable. Spouse requesting to be updated with plan. As of right now patient is not alert and oriented. PIG IRON LOADER sat with patient to do assessment and patient continued to say that she wants to leave and kill myself. Patient does not report plan? Patient attempted to get up out of chair during PIG IRON LOADER visit. Patient now with sitter due to behavior. Spoke with Dr. Day and he reports that he will re-evaluate tomorrow and make determination if psychiatric evaluation would be helpful. At this time patient appears to out of it to make any sense. Hopeful that she will clear more by tomorrow. P: PIG IRON LOADER to follow up in AM for d/c plan. Family wants patient to go to some type of treatment. Patient reports that she drug of choice is heroin. Patient also telling staff and PIG IRON LOADER that she wants to kill myself. Patient might be approbate for dual dx treatment facility. Unclear if this will be voluntary or involuntary. SARAH
[2022-05-01] VITALS: BP 130/80; PULSE 60; RESP 14; TEMP 36.6; O2SAT 96
[2022-05-01] MEDS: LORazepam 1 MG TABLET PO ×2 (01:06→04:50)
[2022-05-01] MEDS: DEXAMETHASONE 4 MG/ML VIAL IV ×2 (01:09→06:38)
[2022-05-01] MEDS: ONDANSETRON 4 MG/2 ML INJ IV (01:21)
[2022-05-01] MEDS: HYDROCODONE/ACET 5/325 TABLET 1 TAB PO ×2 (01:21→06:38)
[2022-05-01 04:00] VITALS: BP 120/69; PULSE 77; RESP 16; TEMP 37.1; O2SAT 98
--- NOTE | 2022-05-01 06:11 | PC.NURSE ---
Patient unwilling to participate in suicide screening reassessment. Continues to be impulsive, restless, and agitated.
[2022-05-01 08:00] VITALS: BP 113/80; PULSE 81; RESP 20; TEMP 38; O2SAT 95
[2022-05-01] MEDS: HEPARIN 5,000 UNIT/ML VIAL 5000 UNIT SUBCUT (08:37)
[2022-05-01] MEDS: NICOTINE 21 MG PATCH TOP (08:38)
--- NOTE | 2022-05-01 08:43 | P.PN_ITS ---
Exam Vital Signs (past 8 hours): - 05/01/22 04:00 05/01/22 08:00 Temperature 98.7 F 100.4 F H Pulse Rate 77 81 Respiratory Rate 16 20 Blood Pressure 120/69 113/80 Pulse Oximetry 98 95 Oxygen Flow Rate 0 Fraction of Inspired Oxygen 35 Oxygen Delivery Method Room Air Oxygen Flow Rate 0 Narrative Exam Narrative: GEN:?middle-aged female, appears frustrated HEENT:NC, Face symmetric, minimal lip swelling noted, tongue appears to be near normal p CHEST: Respiratory excursions symmetric, CTAB CV: RRR, no M/R/G ABD: Soft, NT/ND, BT present in all 4 quadrants, no organomegaly or masses EXTR: warm, well perfused, no C/C/E SKIN: warm and dry, no rash NEURO:? Intubated, sedated, nonfocal Objective Labs Result Diagrams: 05/01/22 09:04 04/30/22 05:00 [facility] Social History household members: spouse Smoking Status: Current every day smoker Assessment & Plan Assessment & Plan narrative: 56-year-old female with active heroin dependence and tobacco dependence who is presently hospital day 2 admitted with laryngeal edema felt to be secondary to thermal injury from smoking heroin (anesthesia reported patient having history of a inhaling a heroin ember and her having evidence of eschar at the time of intubation). Extubated on 04/29 to room air. # Suicidal ideation -patient reporting wanted to commit suicide, no definite plan -start sertraline and ativan PRN for anxiety -bedside sitter in place -may need psych consult -MANAGER TELEMETRY working to have patient placed # Laryngeal edema secondary to presumed thermal injury from smoking heroin, improved Per the anesthesiologist report, patient had an area of eschar by the vocal folds, and had received history from the patient or family that she had accidentally inhaled and ember of heroin when she was smoking.? It was felt the findings on exam were consistent with thermal injury. -repeat CT neck soft tissue on 04/28 showed improved laryngeal swelling -extubated to room air on 04/30 -now on room air -continue steroids -finished 1 week of unasyn # Acute hypoxic respiratory failure, resolved Secondary to laryngeal edema.? Continue airway protection with intubation and mechanical ventilation.? Continue sedation with propofol/fentanyl/Versed as needed. -Now off O2 # Hypotension Now resolved.? She is normotensive currently. # Hypokalemia, resolved -monitor # Polysubstance dependence Patient reportedly uses heroin, methamphetamine, and has tobacco dependence.? She is overall better so sedated today.? Continue close monitoring for safety. -MANAGER TELEMETRY working on placement in detox program # Lung nodules Chest CT on admission revealed a 1.1 cm lobulated nodular density in the left lower lobe, a 0.7 cm irregular nodule in the left lower lobe, a 0.4 cm nodule in the left lower lobe, and a 0.2 cm nodule in the left upper lobe.? Recommendations were for a PET-CT scan or short-term follow-up CT in 3 months. Code status Full Prophylaxis Continue heparin. Disposition Pending placement in detox program. Time Spent With Patient Critical Care time: I spent a total of [] minutes of critical care time on this patient's care today; this time is exclusive of procedural time.
[2022-05-01 09:12] LABS: Add Manual Diff / Slide Review NO; Basophils Absolute Auto 0 /uL (0-100); Basophils Percent Auto 0.4 % (0-2); Eosinophils Absolute Auto 0 /uL (0-450); Hemoglobin 15.9 g/dL (12.0-16.0); Lymphocytes Absolute Auto 800 /uL (1100-4500); Lymphocytes Percent Auto 7.8 % (25-40); Mean Corpuscular HGB Conc 33.9 % (30-36); Mean Corpuscular Hemoglobin 30.7 PG (26-34); Mean Corpuscular Volume 90.6 fL (80-100); Monocytes Absolute Auto 500 /uL (0-900); Monocytes Percent Auto 4.9 % (3-14); Neutrophils Absolute Auto 9200 /uL (1500-7000); Neutrophils Percent Auto 86.9 % (50-75); Platelet Count 221 X10^3/uL (150-400); Red Blood Cell Count 5.19 X10^6/uL (4.0-5.2); Red Cell Distribution Width 13.1 % (11.6-14.8); White Blood Cell Count 10.6 X10^3/uL (4.5-11.0)
[2022-05-01 09:29] LABS: BUN Creatinine Ratio 48.1 (6-22); Blood Urea Nitrogen 37 mg/dL (7-17); Calcium 8.7 mg/dL (8.4-10.2); Carbon Dioxide 26 mmol/L (22-32); Chloride 105 mmol/L (98-107); Estimated Glomerular Filt Rate > 60 mL/min (>60); Glucose 122 mg/dL (70-100); HEMOLYSIS < 15 (0-50); Sodium 137 mmol/L (137-145)
--- NOTE | 2022-05-01 10:58 | PC.NURSE ---
At 10:54 patient stated That there will be some real problems if they don't let my come in
--- NOTE | 2022-05-01 11:13 | PC.NURSE ---
Patient has become more agitated, wanting to leave the hospital AMA. The charge nurse and care management have just spoken to her. She have picked up her belongings and wanting to walk down the baugh.
--- NOTE | 2022-05-01 11:31 | CM.DPC ---
DCP AMA Per , pt had a slight fever overnight but has currently remained stable. Discussion in rounds on possible need for Psych Consult from [facility] as pt had made statements yesterday about wanting to but no plan or attempts since being extubated. Pt's purse was found to have heroin but unclear if pt was able to attempt to use heroin while admitted and extubated or only just in her belongings. Psych Consult order placed and [facility] was called and informed. Per tub attendant and Eva Rodriguez RN director pt's visitors were restricted due to drug paraphenalia in pt's belongings and for safety. SW spoke to pt's spouse and updated on the process for Psych Consult to determine if MH needs are identified along with TYRA needs and spouse acknowledges understanding and confirms his preference is Inpt TYRA tx at d/c. SW discussed the barriers to Inpt Tx right from the hospital including need for TYRA assessment prior to Inpt Tx and pt's insurance and contracted facility. Per RN, pt now stating she is leaving the hospital and spouse to transport her to TYRA tx. LAUREN met bedside with pt and explained role and she denies suicidal ideation and states she spoke to her spouse and she remains agreeable to Inpt TYRA tx and that she is leaving right now and he is going [facility] SW attempted to get pt to be agreeable to wait an hour or so SW could help arrange treatment so that she is not turned away at the door but pt declines waiting but agreeable to SW calling [facility] to assist in attempting to set up Inpt tx for her. SW called [facility] and confirmed they need an TYRA assessment prior and pwk filled out before they can accept and they do not take private insurance. LAUREN called spouse and he confirms he remains outside the hospital and was not aware pt is wanting to leave AMA and SW discussed barriers to [facility]. Spouse preference is pt remain in the hospital so treatment options can be set up but SW discussed since pt denying suicidal ideation then cannot physically keep pt from leaving AMA and encouraged him to call pt and encourage her to remain in the hospital. met bedside with pt and also confirmed pt denies S.I. and pt stated I only said I wanted to so that I could be released from the hospital and did not realize it would be a barrier to discharge. Pt confirms she wants to leave AMA. RN working on AMA paperwork. SW updated [facility] RN that pt to leave AMA and no Psych Consult needed at this time. Macrina Cunningham MSW
--- NOTE | 2022-05-01 11:44 | PC.NURSE ---
Patient left AMA. Patient left in hospital gown and her belongings. Took patient in wheelchair to ER entrance to be picked up by her .
--- NOTE | 2022-05-01 11:45 | P.DS_ITS ---
History of Present Illness History of Present Illness Date Patient Seen: 05/01/22 Time Patient Seen: 11:45 Chief complaint: sob Narrative: Ms. Santana is a 56W with PMH heroin abuse, tobacco abuse who presents to the hospital with shortness of breath. Patient is intubated during exam, and history is obtained through discussion with other physicians. She has apparently been having stridor and wheezing for over a month. She has not had cough, fevers/chills. No chest pain or shortness of breath. She did have some mild discomfort with swallowing. She had a CT chest yesterday which showed multiple pulmonary nodules. She was sent in to the hospital today by RT who saw her when she was planning to get PFTs. In the ED workup was done, vitals notable for tachycardia. Per ED she was notably struggling to breath and stridorous. Labs notable for WBC 6.5, hgb 14.9, plts 167. Creatinine 0.69. CT neck showed laryngeal edema with closure of airway. She was intubated in the ED. She was admitted for further treatment. 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 Has provider been notified: Yes 04/25/22 00:44 Consult to Dairy Worker Routine Comment: heroin detox program 05/01/22 10:32 Consult to Physician Routine Comment: Consulting Provider: Braulio Cummings Reason for consultation: suicidal ideation Discharge provider: Black Day DO Summary Hospital Course Discharge Diagnosis: # Suicidal ideation # Laryngeal edema secondary to presumed thermal injury from smoking heroin, improved # Acute hypoxic respiratory failure, resolved # Hypotension # Hypokalemia, resolved # Polysubstance dependence # Lung nodules Hospital Course: 56-year-old female with active heroin dependence and tobacco dependence who is presently hospital day 2 admitted with laryngeal edema felt to be secondary to thermal injury from smoking heroin (anesthesia reported patient having history of a inhaling a heroin ember and her having evidence of eschar at the time of intubation). Extubated on 04/29 to room air. Did well other than some agitation requiring po ativan. On 04/30 she mentioned to a nurse that she wanted to kill herself. Psych was consulted but before they could see her she attempted to leave AMA. I discussed with her that if she was truly suicidal she could not leave and we needed to keep her. She explained that she had no plans to end her life, that she was frustrated at still being in the hospital and used the suicidal comments as a ploy to get out of her. She denies any current suicidal ideation and wants to leave AMA. She declined taking any prescriptions with her such as steroids for her laryngeal swelling. She was deemed not a suicide risk, and therefore signed out AMA to try to get to outpatient detox for her heroin use with her 's help. Exam Vital Signs (past 8 hours): - 05/01/22 04:00 05/01/22 08:00 Temperature 98.7 F 100.4 F H Pulse Rate 77 81 Respiratory Rate 16 20 Blood Pressure 120/69 113/80 Pulse Oximetry 98 95 Oxygen Flow Rate 0 Fraction of Inspired Oxygen 35 Oxygen Delivery Method Room Air Oxygen Flow Rate 0 Narrative Exam Narrative: GEN:?middle-aged female, appears frustrated HEENT:NC, Face symmetric, minimal lip swelling noted, tongue appears to be near normal p CHEST: Respiratory excursions symmetric, CTAB CV: RRR, no M/R/G ABD: Soft, NT/ND, BT present in all 4 quadrants, no organomegaly or masses EXTR: warm, well perfused, no C/C/E SKIN: warm and dry, no rash NEURO:? Intubated, sedated, nonfocal Objective Labs Result Diagrams: 05/01/22 09:04 05/01/22 09:04 Labs: Laboratory Results - last 24 hr 05/01/22 05/01/22 09:04 09:04 WBC 10.6 RBC 5.19 Hgb 15.9 Hct 47.0 H MCV 90.6 MCH 30.7 MCHC 33.9 RDW 13.1 Plt Count 221 Neut % (Auto) 86.9 H Lymph % (Auto) 7.8 L [place] % (Auto) 4.9 Eos % (Auto) 0.0 L Baso % (Auto) 0.4 Neut # (Auto) 9200 H Lymph # (Auto) 800 L [place] # (Auto) 500 Eos # (Auto) 0 Baso # (Auto) 0 Sodium 137 Potassium 4.0 Chloride 105 Carbon Dioxide 26 BUN 37 H Creatinine 0.77 Estimated GFR > 60 BUN/Creatinine Ratio 48.1 H Glucose 122 H Calcium 8.7 PFSH Social History household members: spouse Smoking Status: Current every day smoker Discharge Plan Discharge Plan Patient Disposition: Left Against Medical Advice Discharge orders & Medications Prescriptions: Continued gabapentin 100 MG capsule 300 mg Qty: 0 methadone 10 MG tablet 20 mg PO BID Qty: 0 hydromorphone [Dilaudid] 4 MG tablet Qty: 0 hydromorphone [Dilaudid] 4 MG tablet 4 mg PO QIDP PRNQty: 10 0RF hydrocodone-acetaminophen [[place]] 5 MG/325 MG tablet 1 tab PO Q6HP PRNQty: 6 0RF sulfamethoxazole-trimethoprim 800 MG/160 MG tablet 1 tab PO BID Qty: 14 0RF hydrocodone-acetaminophen [[place]] 7.5 MG/325 MG tablet 1 tab PO Q6HP PRNQty: 14 0RF Discontinued cephalexin [Keflex] 500 MG capsule 500 mg PO QID Qty: 10 0RF Follow up/Referrals: Lety Bess ARNP [Primary Care Provider] - Discharge Data Primary Care Provider: Lety Bess
== END 2022-05-01 11:30 | disposition left against medical advice (07) | DRG 207 ==
LOC: ED 20:07 → ICU 21:14
PROVIDERS: Emergency Medicine; Family Medicine; Internal Medicine Critical Care Medicine; Internal Medicine Pulmonary Disease; Nurse Practitioner Family; Student in an Organized Health Care Education/Training Program; Admitting Provider Internal Medicine; Emergency Provider Emergency Medicine; Family Provider Otolaryngology; PCP Family Medicine; Referring Provider Emergency Medicine; Visit Provider Internal Medicine
DX: T27.0XXA Burn of larynx and trachea, initial encounter (principal); J96.01 Acute respiratory failure with hypoxia; R45.851 Suicidal ideations; F11.20 Opioid dependence, uncomplicated; X08.8XXA Exposure to other specified smoke, fire and flames, initial encounter; J38.4 Edema of larynx; I95.9 Hypotension, unspecified; R91.8 Other nonspecific abnormal finding of lung field; F17.210 Nicotine dependence, cigarettes, uncomplicated; E87.70 Fluid overload, unspecified; Z20.822 Contact with and (suspected) exposure to COVID-19; Z53.29 Procedure and treatment not carried out because of patient's decision for other reasons; D35.01 Benign neoplasm of right adrenal gland
CPT/HCPCS: 36415; 36592; 36600; 70491; 71045; 71250; 80048; 80053; 80305; 82550; 82553; 82805; 82962; 83735; 84132; 84484; 85025; 87040; 87070; 87081; 87205; 87635; 87797; 93005; 94002; 94003; 94640; 94799; 96374; 99285; 99291; C9803; C9113; J0295; J0330; J1100; J1644; J1940; J2250; J2405; J2704; J3010; Q9967